=== PATIENT | male | born 1960 | race Caucasian/White ===

== ENCOUNTER 2022-05-20 12:59 | Outpatient (CLI) | payer BC, SELFPAY | END 2022-05-20 13:00 | disposition home or self-care (01) | PROVIDERS: PCP Internal Medicine Nephrology; Visit Provider Nurse Practitioner Family | DX: E11.621 Type 2 diabetes mellitus with foot ulcer (principal); L97.512 Non-pressure chronic ulcer of other part of right foot with fat layer exposed; L97.522 Non-pressure chronic ulcer of other part of left foot with fat layer exposed; Z79.84 Long term (current) use of oral hypoglycemic drugs; Z79.4 Long term (current) use of insulin; R26.9 Unspecified abnormalities of gait and mobility; E66.01 Morbid (severe) obesity due to excess calories; Z68.42 Body mass index [BMI] 45.0-49.9, adult | CPT/HCPCS: 11042; 99203 ==

== ENCOUNTER 2022-05-20 14:54 | Outpatient (CLI) | payer BC, SELFPAY ==
--- NOTE | 2022-05-20 15:30 | XR_ITS ---
Final Report Patient: KAROL MADERA Facility:?[facility] Patient ID:?[id number] Site Patient ID:?[id number]. Site :?[id number] Study:?XRay Extremity Right Foot 2 View-05/20/2022 3:39:29 PM Ordering Physician:?Jeff Whitten Final Report: Indication: Diabetic foot ulcer, great toe. Technique: Three views. Comparison: None. Findings/Impression: No radiographic evidence of osteomyelitis. No fracture or malalignment. Scattered osteoarthritic changes in the midfoot. Subcutaneous soft tissue swelling in the foot. No subcutaneous gas. Retrocalcaneal enthesophyte. Dorsal talonavicular ossicles. Dictated by James Newman MD @ 05/20/2022 6:18:14 PM (Electronic Signature)
--- NOTE | 2022-05-20 15:45 | XR_ITS ---
Final Report Patient: KAROL MADERA Facility:?[facility] Patient ID:?[id number] Site Patient ID:?[id number]. Site :?1960 Study:?XRay Extremity Left Feet 2 View-05/20/2022 3:38:35 PM Ordering Physician:?Jeff Whitten Final Report: Indication: Diabetic foot ulcer, great toe. Technique: Two views. Comparison: None. Findings/Impression: No fracture or malalignment. No radiographic evidence of osteomyelitis. Plantar 1st toe ulceration. No subcutaneous gas. Vascular calcifications. Mild degenerative changes in the midfoot. Dictated by James Newman MD @ 05/20/2022 6:19:38 PM (Electronic Signature)
== END 2022-05-20 14:55 | disposition home or self-care (01) ==
PROVIDERS: PCP Family Medicine; Visit Provider Nurse Practitioner Family
DX: E11.621 Type 2 diabetes mellitus with foot ulcer (principal); L97.529 Non-pressure chronic ulcer of other part of left foot with unspecified severity; L97.519 Non-pressure chronic ulcer of other part of right foot with unspecified severity
CPT/HCPCS: 73620

== ENCOUNTER 2022-05-27 13:24 | Outpatient (CLI) | payer BC, SELFPAY | END 2022-05-27 13:25 | disposition home or self-care (01) | LOC: WOUND 13:24 | PROVIDERS: PCP Family Medicine; Visit Provider Nurse Practitioner Family | DX: L97.512 Non-pressure chronic ulcer of other part of right foot with fat layer exposed (principal); L97.522 Non-pressure chronic ulcer of other part of left foot with fat layer exposed; R26.9 Unspecified abnormalities of gait and mobility; E11.621 Type 2 diabetes mellitus with foot ulcer | CPT/HCPCS: 11042 ==

== ENCOUNTER 2022-06-03 13:22 | Outpatient (CLI) | payer BC, SELFPAY | END 2022-06-03 13:23 | disposition home or self-care (01) | LOC: WOUND 13:22 | PROVIDERS: PCP Family Medicine; Visit Provider Nurse Practitioner Family | DX: E11.621 Type 2 diabetes mellitus with foot ulcer (principal); L97.512 Non-pressure chronic ulcer of other part of right foot with fat layer exposed; L97.522 Non-pressure chronic ulcer of other part of left foot with fat layer exposed; R26.9 Unspecified abnormalities of gait and mobility | CPT/HCPCS: 11042 ==

== ENCOUNTER 2022-06-10 13:16 | Outpatient (CLI) | payer BC, SELFPAY | END 2022-06-10 13:17 | disposition home or self-care (01) | LOC: WOUND 13:16 | PROVIDERS: PCP Family Medicine; Visit Provider Nurse Practitioner Family | DX: L97.512 Non-pressure chronic ulcer of other part of right foot with fat layer exposed (principal); L97.522 Non-pressure chronic ulcer of other part of left foot with fat layer exposed; R26.9 Unspecified abnormalities of gait and mobility | CPT/HCPCS: 11042 ==

== ENCOUNTER 2022-06-17 14:53 | Outpatient (CLI) | payer BC, SELFPAY | END 2022-06-17 14:54 | disposition home or self-care (01) | LOC: WOUND 14:53 | PROVIDERS: PCP Family Medicine; Visit Provider Nurse Practitioner Family | DX: E11.621 Type 2 diabetes mellitus with foot ulcer (principal); L97.512 Non-pressure chronic ulcer of other part of right foot with fat layer exposed; L97.522 Non-pressure chronic ulcer of other part of left foot with fat layer exposed; R26.9 Unspecified abnormalities of gait and mobility | CPT/HCPCS: 11042 ==

== ENCOUNTER 2022-06-24 14:22 | Outpatient (CLI) | payer BC, SELFPAY | END 2022-06-24 14:23 | disposition home or self-care (01) | LOC: WOUND 14:22 | PROVIDERS: PCP Family Medicine; Visit Provider Nurse Practitioner Family | DX: E11.621 Type 2 diabetes mellitus with foot ulcer (principal); L97.512 Non-pressure chronic ulcer of other part of right foot with fat layer exposed; L97.522 Non-pressure chronic ulcer of other part of left foot with fat layer exposed; S81.802A Unspecified open wound, left lower leg, initial encounter; W22.8XXA Striking against or struck by other objects, initial encounter | CPT/HCPCS: 11042; 97602 ==

== ENCOUNTER 2022-06-30 13:54 | Outpatient (CLI) | payer BC, SELFPAY ==
[2022-06-30 15:17] LABS: Chloride* 105 mmol/L (96-114); Sodium* 140 mmol/L (135-149)
[2022-06-30 15:18] LABS: Albumin* 3.6 g/dL (3.3-5.0); Potassium* 5.6 mmol/L (3.6-5.1)
[2022-06-30 15:20] LABS: Creatinine* 1.7 mg/dL (0.5-1.5); Estimated Glomerular Filt Rate 45 ml/min
[2022-06-30 15:21] LABS: Blood Urea Nitrogen* 50 mg/dL (7-30); Calcium* 8.4 mg/dL (8.4-10.6); Carbon Dioxide* 28 mmol/L (20-32); Glucose* 204 mg/dL (60-115); Phosphorus* 4.4 mg/dL (2.5-4.5); Uric Acid* 6.9 mg/dL (2.2-8.4)
[2022-06-30 15:22] LABS: Creatinine Urine 96.5 mg/dL
[2022-06-30 15:25] LABS: Iron* 43 ug/dL (49-181)
[2022-06-30 15:26] LABS: Microalbumin Creatinine Ratio 50 mg/g (0-30); Microalbumin Urine 5 mg/dL
[2022-06-30 15:56] LABS: Ferritin* 34.4 ng/mL (17.9-464.0)
== END 2022-06-30 13:55 | disposition home or self-care (01) ==
PROVIDERS: PCP Family Medicine; Visit Provider Internal Medicine Nephrology
DX: I10 Essential (primary) hypertension (principal); N18.30 Chronic kidney disease, stage 3 unspecified; E11.621 Type 2 diabetes mellitus with foot ulcer; L97.529 Non-pressure chronic ulcer of other part of left foot with unspecified severity; L97.519 Non-pressure chronic ulcer of other part of right foot with unspecified severity
CPT/HCPCS: 80069; 82043; 82570; 82728; 83540; 84550

== ENCOUNTER 2022-07-01 13:39 | Outpatient (CLI) | payer BC, SELFPAY | END 2022-07-01 13:40 | disposition home or self-care (01) | LOC: WOUND 13:39 | PROVIDERS: PCP Family Medicine; Visit Provider Nurse Practitioner Family | DX: E11.621 Type 2 diabetes mellitus with foot ulcer (principal); L97.512 Non-pressure chronic ulcer of other part of right foot with fat layer exposed; L97.522 Non-pressure chronic ulcer of other part of left foot with fat layer exposed | CPT/HCPCS: 11042 ==

== ENCOUNTER 2022-07-15 13:38 | Outpatient (CLI) | payer BC, SELFPAY | END 2022-07-15 13:39 | disposition home or self-care (01) | LOC: WOUND 13:38 | PROVIDERS: PCP Family Medicine; Visit Provider Nurse Practitioner Family | DX: E11.621 Type 2 diabetes mellitus with foot ulcer (principal); L97.512 Non-pressure chronic ulcer of other part of right foot with fat layer exposed; L97.522 Non-pressure chronic ulcer of other part of left foot with fat layer exposed | CPT/HCPCS: 11042; 97597 ==

== ENCOUNTER 2022-07-29 12:47 | Outpatient (CLI) | payer BC, SELFPAY | END 2022-07-29 12:48 | disposition home or self-care (01) | LOC: WOUND 12:47 | PROVIDERS: PCP Family Medicine; Visit Provider Nurse Practitioner Family | DX: E11.621 Type 2 diabetes mellitus with foot ulcer (principal); L97.512 Non-pressure chronic ulcer of other part of right foot with fat layer exposed; L97.522 Non-pressure chronic ulcer of other part of left foot with fat layer exposed | CPT/HCPCS: 11042 ==

== ENCOUNTER 2022-08-12 12:36 | Outpatient (CLI) | payer BC, SELFPAY | END 2022-08-12 12:37 | disposition home or self-care (01) | LOC: WOUND 12:36 | PROVIDERS: PCP Family Medicine; Visit Provider Nurse Practitioner Family | DX: E11.621 Type 2 diabetes mellitus with foot ulcer (principal); L97.512 Non-pressure chronic ulcer of other part of right foot with fat layer exposed; L97.522 Non-pressure chronic ulcer of other part of left foot with fat layer exposed | CPT/HCPCS: 11042; 97597 ==

== ENCOUNTER 2022-08-26 12:46 | Outpatient (CLI) | payer BC, SELFPAY ==
--- NOTE | 2022-08-26 14:00 | CRLHL7_ITS ---
For Patients: As a result of the Cures Act, medical imaging exams and procedure reports are released immediately into your electronic medical record. You may view this report before your referring provider. If you have questions, please contact your health care provider. Indication: Ulcer Technique: Three views of the toe Comparison: No comparison Findings: Normal alignment. No acute fractures are seen. Small lucent lesion along the plantar aspect of the 1st toe distal phalanx slight sclerotic margin indeterminate for erosion. If there is for osteomyelitis consider MRI. Dictated by Jacquelyn Ye MD @ 08/27/2022 10:47:01 AM (Electronically Signed)
== END 2022-08-26 12:47 | disposition home or self-care (01) ==
PROVIDERS: PCP Family Medicine; Visit Provider Nurse Practitioner Family
DX: E11.621 Type 2 diabetes mellitus with foot ulcer (principal); L97.522 Non-pressure chronic ulcer of other part of left foot with fat layer exposed; L97.512 Non-pressure chronic ulcer of other part of right foot with fat layer exposed
CPT/HCPCS: 11042; 73660

== ENCOUNTER 2022-09-02 12:40 | Outpatient (CLI) | payer BC, SELFPAY | END 2022-09-02 12:41 | disposition home or self-care (01) | LOC: WOUND 12:40 | PROVIDERS: PCP Family Medicine; Visit Provider Nurse Practitioner Family | DX: E11.621 Type 2 diabetes mellitus with foot ulcer (principal); L97.522 Non-pressure chronic ulcer of other part of left foot with fat layer exposed; L97.512 Non-pressure chronic ulcer of other part of right foot with fat layer exposed; Z79.4 Long term (current) use of insulin | CPT/HCPCS: 11042; 97597 ==

== ENCOUNTER 2022-09-15 09:40 | Outpatient (CLI) | payer BC, SELFPAY ==
--- NOTE | 2022-09-15 10:15 | CRLHL7_ITS ---
For Patients: As a result of the Century Cures Act, medical imaging exams and procedure reports are released immediately into your electronic medical record. You may view this report before your referring provider. If you have questions, please contact your health care provider. EXAM: MRI of the left foot without contrast. CLINICAL INDICATION: Concern for osteomyelitis. COMPARISON PLAIN FILMS: Radiographs 08/26/2022. COMPARISON CROSS-SECTIONAL IMAGING STUDIES: None. TECHNICAL: Axial, sagittal and coronal T1, PD and STIR images. 1.5 Griselda MR scanner. FINDINGS: OSSEOUS STRUCTURES: No fracture, bone marrow contusion, stress change or marrow replacement process. Preserved T1 hyperintense bone marrow signal. No erosions. JOINT SPACES: Joint spaces within the visualized forefoot, at the midfoot-forefoot junction and within the midfoot are maintained. Moderate 1st MTP joint osteoarthritis. LIGAMENTS: The Lisfranc ligament is intact. TMT joint alignment is maintained. The collateral ligaments of the MTP joints are intact. TENDONS AND MUSCLES: The flexor and extensor tendons are intact. Flexor hallucis longus tendinosis with more focal 2.2 centimeter length of more prominent thickening and increased signal proximal to the sesamoid bones. The distal peroneus longus and brevis tendons are intact. Minimal atrophy of the intrinsic musculature of the foot with increased STIR signal. SOFT TISSUES: Soft tissue induration along the medial plantar aspect of the 1st toe. Nonspecific subcutaneous edema throughout the forefoot. No evidence of drainable fluid collection within limits of noncontrast exam present OTHER FINDINGS: Mild fluid in the web space between the head of the 1st and 2nd metatarsals. IMPRESSION: 1. No evidence of osteomyelitis. 2. Mild soft tissue thickening and induration in the medial plantar 1st toe consistent with given history of ulcer. 3. Flexor hallucis longus tendinosis with more focal segment of severe tendinosis or partial-thickness tear proximal to the sesamoid bones. 4. Moderate 1st MTP joint osteoarthritis. 5. Mild intermetatarsal bursitis between the 1st and 2nd metatarsal heads. Dictated by James Newman MD @ 09/15/2022 4:08:48 PM (Electronically Signed)
== END 2022-09-15 09:41 | disposition home or self-care (01) ==
LOC: MRI 09:40
PROVIDERS: PCP Family Medicine; Visit Provider Nurse Practitioner Family
DX: L97.522 Non-pressure chronic ulcer of other part of left foot with fat layer exposed (principal); M19.072 Primary osteoarthritis, left ankle and foot; M77.52 Other enthesopathy of left foot and ankle
CPT/HCPCS: 73718

== ENCOUNTER 2022-09-16 12:38 | Outpatient (CLI) | payer BC, SELFPAY | END 2022-09-16 12:39 | disposition home or self-care (01) | LOC: WOUND 12:39 | PROVIDERS: PCP Family Medicine; Visit Provider Nurse Practitioner Family | DX: E11.621 Type 2 diabetes mellitus with foot ulcer (principal); L97.512 Non-pressure chronic ulcer of other part of right foot with fat layer exposed; L97.522 Non-pressure chronic ulcer of other part of left foot with fat layer exposed; Z79.4 Long term (current) use of insulin; Z79.84 Long term (current) use of oral hypoglycemic drugs | CPT/HCPCS: 11042 ==

== ENCOUNTER 2022-10-07 12:43 | Outpatient (CLI) | payer BC, SELFPAY | END 2022-10-07 12:44 | disposition home or self-care (01) | LOC: WOUND 12:43 | PROVIDERS: PCP Family Medicine; Visit Provider Nurse Practitioner Family | DX: E11.621 Type 2 diabetes mellitus with foot ulcer (principal); L97.512 Non-pressure chronic ulcer of other part of right foot with fat layer exposed; L97.522 Non-pressure chronic ulcer of other part of left foot with fat layer exposed | CPT/HCPCS: 11042; 11043 ==

== ENCOUNTER 2022-10-14 13:37 | Outpatient (CLI) | payer BC, SELFPAY | END 2022-10-14 13:38 | disposition home or self-care (01) | LOC: WOUND 13:37 | PROVIDERS: PCP Family Medicine; Visit Provider Nurse Practitioner Family | DX: E11.621 Type 2 diabetes mellitus with foot ulcer (principal); L97.512 Non-pressure chronic ulcer of other part of right foot with fat layer exposed; L97.522 Non-pressure chronic ulcer of other part of left foot with fat layer exposed | CPT/HCPCS: 11042 ==

== ENCOUNTER 2022-10-28 12:56 | Outpatient (CLI) | payer BC, SELFPAY | END 2022-10-28 12:57 | disposition home or self-care (01) | LOC: WOUND 12:56 | PROVIDERS: PCP Family Medicine; Visit Provider Nurse Practitioner Family | DX: E11.621 Type 2 diabetes mellitus with foot ulcer (principal); L97.512 Non-pressure chronic ulcer of other part of right foot with fat layer exposed; L97.522 Non-pressure chronic ulcer of other part of left foot with fat layer exposed | CPT/HCPCS: 11042 ==

== ENCOUNTER 2022-11-18 12:53 | Outpatient (CLI) | payer BC, SELFPAY | END 2022-11-18 12:54 | disposition home or self-care (01) | LOC: WOUND 12:53 | PROVIDERS: PCP Family Medicine; Visit Provider Nurse Practitioner Family | DX: E11.621 Type 2 diabetes mellitus with foot ulcer (principal); L97.512 Non-pressure chronic ulcer of other part of right foot with fat layer exposed; L97.522 Non-pressure chronic ulcer of other part of left foot with fat layer exposed | CPT/HCPCS: 11042 ==

== ENCOUNTER 2022-12-01 16:04 | Outpatient (CLI) | payer BC, SELFPAY ==
[2022-12-01 12:14] LABS: Iron* 53 ug/dL (49-181)
[2022-12-01 12:30] LABS: Alanine Aminotransferase* 24 U/L (4-50); Albumin* 3.9 g/dL (3.3-5.0); Aspartate Amino Transferase* 26 U/L (12-35); Blood Urea Nitrogen* 41 mg/dL (7-30); Calcium* 9.1 mg/dL (8.4-10.6); Carbon Dioxide* 29 mmol/L (20-32); Chloride* 109 mmol/L (96-114); Cholesterol* 150 mg/dL (90-199); Creatinine* 1.5 mg/dL (0.5-1.5); Estimated Glomerular Filt Rate 53 ml/min; Glucose* 95 mg/dL (60-115); HDL Cholesterol* 38 mg/dL (>=40); LDL Cholesterol Calculated 97 mg/dL (<100); Percent Iron Saturation 13 % (20-50); Phosphorus* 4.3 mg/dL (2.5-4.5); Potassium* 5.4 mmol/L (3.6-5.1); Sodium* 141 mmol/L (135-149); Total Iron Binding Capacity 399 ug/dL (261-462); Triglycerides* 75 mg/dL (40-149); Uric Acid* 6.4 mg/dL (2.2-8.4)
[2022-12-01 12:32] LABS: C Reactive Protein* < 0.5 mg/dL (0.5-1.0)
[2022-12-01 12:48] LABS: Creatinine Urine 75.8 mg/dL
[2022-12-01 12:52] LABS: Microalbumin Creatinine Ratio 170 mg/g (0-30); Microalbumin Urine 13 mg/dL
[2022-12-01 13:18] LABS: Ferritin* 18.7 ng/mL (17.9-464.0)
== END 2022-12-01 16:05 | disposition home or self-care (01) ==
PROVIDERS: PCP Family Medicine; Visit Provider Internal Medicine Nephrology
DX: E11.9 Type 2 diabetes mellitus without complications (principal); I10 Essential (primary) hypertension; N18.32 Chronic kidney disease, stage 3b
CPT/HCPCS: 80061; 80069; 82043; 82570; 82728; 83540; 83550; 84450; 84460; 84550; 86140

== ENCOUNTER 2022-12-02 12:49 | Outpatient (CLI) | payer BC, SELFPAY | END 2022-12-02 12:50 | disposition home or self-care (01) | LOC: WOUND 12:49 | PROVIDERS: PCP Family Medicine; Visit Provider Nurse Practitioner Family | DX: E11.621 Type 2 diabetes mellitus with foot ulcer (principal); L97.512 Non-pressure chronic ulcer of other part of right foot with fat layer exposed; L97.522 Non-pressure chronic ulcer of other part of left foot with fat layer exposed | CPT/HCPCS: 97597 ==

== ENCOUNTER 2022-12-16 12:46 | Outpatient (CLI) | payer BC, SELFPAY | END 2022-12-16 12:47 | disposition home or self-care (01) | LOC: WOUND 12:46 | PROVIDERS: PCP Family Medicine; Visit Provider Nurse Practitioner Family | DX: E11.621 Type 2 diabetes mellitus with foot ulcer (principal); L97.512 Non-pressure chronic ulcer of other part of right foot with fat layer exposed; L97.522 Non-pressure chronic ulcer of other part of left foot with fat layer exposed; Z79.84 Long term (current) use of oral hypoglycemic drugs | CPT/HCPCS: 11042; 97597 ==

== ENCOUNTER 2022-12-30 12:40 | Outpatient (CLI) | payer BC, SELFPAY | END 2022-12-30 12:41 | disposition home or self-care (01) | LOC: WOUND 12:40 | PROVIDERS: PCP Family Medicine; Visit Provider Nurse Practitioner Family | DX: E11.621 Type 2 diabetes mellitus with foot ulcer (principal); L97.512 Non-pressure chronic ulcer of other part of right foot with fat layer exposed; L97.522 Non-pressure chronic ulcer of other part of left foot with fat layer exposed; I89.0 Lymphedema, not elsewhere classified; B35.3 Tinea pedis; Z79.4 Long term (current) use of insulin; Z79.84 Long term (current) use of oral hypoglycemic drugs | CPT/HCPCS: 97597 ==

== ENCOUNTER 2023-01-13 12:38 | Outpatient (CLI) | payer BC, SELFPAY | END 2023-01-13 12:39 | disposition home or self-care (01) | LOC: WOUND 12:38 | PROVIDERS: PCP Family Medicine; Visit Provider Nurse Practitioner Family | DX: E11.621 Type 2 diabetes mellitus with foot ulcer (principal); L97.512 Non-pressure chronic ulcer of other part of right foot with fat layer exposed; L97.522 Non-pressure chronic ulcer of other part of left foot with fat layer exposed; I89.0 Lymphedema, not elsewhere classified; Z79.4 Long term (current) use of insulin; Z79.84 Long term (current) use of oral hypoglycemic drugs | CPT/HCPCS: 11042 ==

== ENCOUNTER 2023-01-27 12:54 | Outpatient (CLI) | payer BC, SELFPAY | END 2023-01-27 12:55 | disposition home or self-care (01) | LOC: WOUND 12:54 | PROVIDERS: PCP Family Medicine; Visit Provider Nurse Practitioner Family | DX: E11.622 Type 2 diabetes mellitus with other skin ulcer (principal); L97.512 Non-pressure chronic ulcer of other part of right foot with fat layer exposed; L97.522 Non-pressure chronic ulcer of other part of left foot with fat layer exposed; I89.0 Lymphedema, not elsewhere classified | CPT/HCPCS: 11042 ==

== ENCOUNTER 2023-02-10 12:37 | Outpatient (CLI) | payer BC, SELFPAY | END 2023-02-10 12:38 | disposition home or self-care (01) | LOC: WOUND 12:37 | PROVIDERS: PCP Family Medicine; Visit Provider Nurse Practitioner Family | DX: E11.621 Type 2 diabetes mellitus with foot ulcer (principal); L97.512 Non-pressure chronic ulcer of other part of right foot with fat layer exposed; L97.522 Non-pressure chronic ulcer of other part of left foot with fat layer exposed | CPT/HCPCS: 11042 ==

== ENCOUNTER 2023-02-24 12:37 | Outpatient (CLI) | payer BC, SELFPAY | END 2023-02-24 12:38 | disposition home or self-care (01) | LOC: WOUND 12:37 | PROVIDERS: PCP Family Medicine; Visit Provider Nurse Practitioner Family | DX: E11.621 Type 2 diabetes mellitus with foot ulcer (principal); L97.512 Non-pressure chronic ulcer of other part of right foot with fat layer exposed; L97.522 Non-pressure chronic ulcer of other part of left foot with fat layer exposed | CPT/HCPCS: 11042 ==

== ENCOUNTER 2023-03-10 12:39 | Outpatient (CLI) | payer BC, SELFPAY | END 2023-03-10 12:40 | disposition home or self-care (01) | LOC: WOUND 12:39 | PROVIDERS: PCP Family Medicine; Visit Provider Nurse Practitioner Family | DX: E11.621 Type 2 diabetes mellitus with foot ulcer (principal); L97.512 Non-pressure chronic ulcer of other part of right foot with fat layer exposed; L97.522 Non-pressure chronic ulcer of other part of left foot with fat layer exposed; I89.0 Lymphedema, not elsewhere classified | CPT/HCPCS: 11042 ==

== ENCOUNTER 2023-03-24 12:45 | Outpatient (CLI) | payer BC, SELFPAY | END 2023-03-24 12:46 | disposition home or self-care (01) | LOC: WOUND 12:45 | PROVIDERS: PCP Family Medicine; Visit Provider Nurse Practitioner Family | DX: E11.621 Type 2 diabetes mellitus with foot ulcer (principal); L97.512 Non-pressure chronic ulcer of other part of right foot with fat layer exposed; L97.522 Non-pressure chronic ulcer of other part of left foot with fat layer exposed; I89.0 Lymphedema, not elsewhere classified; L60.0 Ingrowing nail; L60.3 Nail dystrophy | CPT/HCPCS: 11042; 11720; 97597; 99211 ==

== ENCOUNTER 2023-05-05 12:36 | Outpatient (CLI) | payer BC, SELFPAY | END 2023-05-05 12:37 | disposition home or self-care (01) | LOC: WOUND 12:36 | PROVIDERS: PCP Family Medicine; Visit Provider Nurse Practitioner Family | DX: E11.621 Type 2 diabetes mellitus with foot ulcer (principal); L97.512 Non-pressure chronic ulcer of other part of right foot with fat layer exposed; L97.522 Non-pressure chronic ulcer of other part of left foot with fat layer exposed; Z79.4 Long term (current) use of insulin; Z79.84 Long term (current) use of oral hypoglycemic drugs | CPT/HCPCS: 11042; 97597 ==

== ENCOUNTER 2023-05-19 12:37 | Outpatient (CLI) | payer BC, SELFPAY | END 2023-05-19 12:38 | disposition home or self-care (01) | LOC: WOUND 12:37 | PROVIDERS: PCP Family Medicine; Visit Provider Family Medicine | DX: E11.621 Type 2 diabetes mellitus with foot ulcer (principal); L97.512 Non-pressure chronic ulcer of other part of right foot with fat layer exposed; L97.522 Non-pressure chronic ulcer of other part of left foot with fat layer exposed; I89.0 Lymphedema, not elsewhere classified; Z79.4 Long term (current) use of insulin; Z79.84 Long term (current) use of oral hypoglycemic drugs | CPT/HCPCS: 11042 ==

== ENCOUNTER 2023-05-29 15:00 | Outpatient (CLI) | payer BC, SELFPAY | END 2023-05-29 15:01 | disposition home or self-care (01) | LOC: NFLDREF 05-31 12:14 | PROVIDERS: PCP Family Medicine; Referring Provider Family Medicine; Visit Provider Internal Medicine Nephrology | DX: E11.9 Type 2 diabetes mellitus without complications (principal); I10 Essential (primary) hypertension; N18.32 Chronic kidney disease, stage 3b; L97.522 Non-pressure chronic ulcer of other part of left foot with fat layer exposed | CPT/HCPCS: 80061; 80069; 82043; 82570; 82728; 83540; 83550; 84450; 84460; 84550 ==

== ENCOUNTER 2023-06-02 12:46 | Outpatient (CLI) | payer BC, SELFPAY | END 2023-06-02 12:47 | disposition home or self-care (01) | LOC: WOUND 12:46 | PROVIDERS: PCP Family Medicine; Visit Provider Nurse Practitioner Family | DX: E11.621 Type 2 diabetes mellitus with foot ulcer (principal); L97.512 Non-pressure chronic ulcer of other part of right foot with fat layer exposed; L97.522 Non-pressure chronic ulcer of other part of left foot with fat layer exposed; I87.312 Chronic venous hypertension (idiopathic) with ulcer of left lower extremity; L97.822 Non-pressure chronic ulcer of other part of left lower leg with fat layer exposed; S91.211A Laceration without foreign body of right great toe with damage to nail, initial encounter; Z79.4 Long term (current) use of insulin; Z79.84 Long term (current) use of oral hypoglycemic drugs | CPT/HCPCS: 11042; 11750; 97602 ==

== ENCOUNTER 2023-06-15 08:41 | Outpatient (CLI) | payer BC, SELFPAY | END 2023-06-15 08:42 | disposition home or self-care (01) | LOC: WOUND 08:41 | PROVIDERS: PCP Family Medicine; Visit Provider Nurse Practitioner Family | DX: E11.621 Type 2 diabetes mellitus with foot ulcer (principal); L97.512 Non-pressure chronic ulcer of other part of right foot with fat layer exposed; L97.522 Non-pressure chronic ulcer of other part of left foot with fat layer exposed; I89.0 Lymphedema, not elsewhere classified; Z79.4 Long term (current) use of insulin; Z79.84 Long term (current) use of oral hypoglycemic drugs | CPT/HCPCS: 11042; 97597 ==

== ENCOUNTER 2023-06-30 12:37 | Outpatient (CLI) | payer BC, SELFPAY | END 2023-06-30 12:38 | disposition home or self-care (01) | LOC: WOUND 12:37 | PROVIDERS: PCP Family Medicine; Visit Provider Nurse Practitioner Family | DX: E11.621 Type 2 diabetes mellitus with foot ulcer (principal); L97.512 Non-pressure chronic ulcer of other part of right foot with fat layer exposed; L97.522 Non-pressure chronic ulcer of other part of left foot with fat layer exposed; Z79.4 Long term (current) use of insulin | CPT/HCPCS: 11042; 97597 ==

== ENCOUNTER 2023-07-14 12:39 | Outpatient (CLI) | payer BC, SELFPAY | END 2023-07-14 12:40 | disposition home or self-care (01) | LOC: WOUND 12:39 | PROVIDERS: PCP Family Medicine; Visit Provider Nurse Practitioner Family | DX: E11.621 Type 2 diabetes mellitus with foot ulcer (principal); L97.512 Non-pressure chronic ulcer of other part of right foot with fat layer exposed; L97.522 Non-pressure chronic ulcer of other part of left foot with fat layer exposed; Z79.84 Long term (current) use of oral hypoglycemic drugs; Z79.4 Long term (current) use of insulin | CPT/HCPCS: 11042 ==

== ENCOUNTER 2023-07-28 12:46 | Outpatient (CLI) | payer BC, SELFPAY | END 2023-07-28 12:47 | disposition home or self-care (01) | LOC: WOUND 12:46 | PROVIDERS: PCP Family Medicine; Visit Provider Nurse Practitioner Family | DX: E11.621 Type 2 diabetes mellitus with foot ulcer (principal); L97.512 Non-pressure chronic ulcer of other part of right foot with fat layer exposed; L97.522 Non-pressure chronic ulcer of other part of left foot with fat layer exposed; Z79.4 Long term (current) use of insulin; Z79.84 Long term (current) use of oral hypoglycemic drugs | CPT/HCPCS: 97597 ==

== ENCOUNTER 2023-08-11 12:39 | Outpatient (CLI) | payer BC, SELFPAY | END 2023-08-11 12:40 | disposition home or self-care (01) | LOC: WOUND 12:39 | PROVIDERS: PCP Family Medicine; Visit Provider Nurse Practitioner Family | DX: E11.621 Type 2 diabetes mellitus with foot ulcer (principal); L97.512 Non-pressure chronic ulcer of other part of right foot with fat layer exposed; L97.522 Non-pressure chronic ulcer of other part of left foot with fat layer exposed; Z79.4 Long term (current) use of insulin; Z79.84 Long term (current) use of oral hypoglycemic drugs | CPT/HCPCS: 97597 ==

== ENCOUNTER 2023-08-25 12:39 | Outpatient (CLI) | payer BC, SELFPAY | END 2023-08-25 12:40 | disposition home or self-care (01) | LOC: WOUND 12:39 | PROVIDERS: PCP Family Medicine; Visit Provider Nurse Practitioner Family | DX: E11.621 Type 2 diabetes mellitus with foot ulcer (principal); L97.512 Non-pressure chronic ulcer of other part of right foot with fat layer exposed; L97.522 Non-pressure chronic ulcer of other part of left foot with fat layer exposed; Z79.4 Long term (current) use of insulin; Z79.84 Long term (current) use of oral hypoglycemic drugs | CPT/HCPCS: 11042; 97597 ==

== ENCOUNTER 2023-08-27 13:08 | Outpatient (CLI) | payer BC, SELFPAY | END 2023-08-27 13:09 | disposition home or self-care (01) | LOC: WOUND 13:08 | PROVIDERS: PCP Family Medicine; Visit Provider Nurse Practitioner Family | DX: E11.621 Type 2 diabetes mellitus with foot ulcer (principal); L97.522 Non-pressure chronic ulcer of other part of left foot with fat layer exposed; I89.0 Lymphedema, not elsewhere classified; E66.01 Morbid (severe) obesity due to excess calories; Z68.42 Body mass index [BMI] 45.0-49.9, adult; Z79.4 Long term (current) use of insulin; Z79.84 Long term (current) use of oral hypoglycemic drugs; I12.9 Hypertensive chronic kidney disease with stage 1 through stage 4 chronic kidney disease, or unspecified chronic kidney disease; E11.22 Type 2 diabetes mellitus with diabetic chronic kidney disease; N18.32 Chronic kidney disease, stage 3b; N25.81 Secondary hyperparathyroidism of renal origin; Z13.220 Encounter for screening for lipoid disorders | CPT/HCPCS: 29445; 80061; 80069; 82043; 82310; 82570; 82728; 83540; 83550; 83970; 84450; 84460; 84550; 86140 ==

== ENCOUNTER 2023-09-01 10:14 | Outpatient (CLI) | payer BC, SELFPAY | END 2023-09-01 10:15 | disposition home or self-care (01) | LOC: WOUND 10:14 | PROVIDERS: PCP Family Medicine; Visit Provider Nurse Practitioner Family | DX: E11.621 Type 2 diabetes mellitus with foot ulcer (principal); L97.512 Non-pressure chronic ulcer of other part of right foot with fat layer exposed; L97.522 Non-pressure chronic ulcer of other part of left foot with fat layer exposed; I89.0 Lymphedema, not elsewhere classified; Z79.4 Long term (current) use of insulin; Z79.84 Long term (current) use of oral hypoglycemic drugs | CPT/HCPCS: 29445; 97597 ==

== ENCOUNTER 2023-09-08 12:38 | Outpatient (CLI) | payer BC, SELFPAY | END 2023-09-08 12:39 | disposition home or self-care (01) | LOC: WOUND 12:38 | PROVIDERS: PCP Family Medicine; Visit Provider Nurse Practitioner Family | DX: E11.621 Type 2 diabetes mellitus with foot ulcer (principal); L97.522 Non-pressure chronic ulcer of other part of left foot with fat layer exposed; L97.512 Non-pressure chronic ulcer of other part of right foot with fat layer exposed; Z79.4 Long term (current) use of insulin; Z79.84 Long term (current) use of oral hypoglycemic drugs | CPT/HCPCS: 29445; 97597 ==

== ENCOUNTER 2023-09-15 14:42 | Outpatient (CLI) | payer BC, SELFPAY | END 2023-09-15 14:43 | disposition home or self-care (01) | LOC: WOUND 14:42 | PROVIDERS: PCP Family Medicine; Visit Provider Nurse Practitioner Family | DX: E11.621 Type 2 diabetes mellitus with foot ulcer (principal); L97.512 Non-pressure chronic ulcer of other part of right foot with fat layer exposed; Z79.4 Long term (current) use of insulin; Z79.84 Long term (current) use of oral hypoglycemic drugs | CPT/HCPCS: 29445; 97597 ==

== ENCOUNTER 2023-09-22 12:55 | Outpatient (CLI) | payer BC, SELFPAY | END 2023-09-22 12:56 | disposition home or self-care (01) | LOC: WOUND 12:55 | PROVIDERS: PCP Family Medicine; Visit Provider Nurse Practitioner Family | DX: E11.621 Type 2 diabetes mellitus with foot ulcer (principal); L97.522 Non-pressure chronic ulcer of other part of left foot with fat layer exposed; I89.0 Lymphedema, not elsewhere classified; S91.302A Unspecified open wound, left foot, initial encounter; W50.0XXA Accidental hit or strike by another person, initial encounter; N18.32 Chronic kidney disease, stage 3b; Z79.4 Long term (current) use of insulin; Z79.84 Long term (current) use of oral hypoglycemic drugs | CPT/HCPCS: 80069; 82043; 82570; 84550; 97602; 99213 ==

== ENCOUNTER 2023-10-06 12:32 | Outpatient (CLI) | payer BC, SELFPAY | END 2023-10-06 12:33 | disposition home or self-care (01) | LOC: WOUND 12:32 | PROVIDERS: PCP Family Medicine; Visit Provider Family Medicine | DX: E11.621 Type 2 diabetes mellitus with foot ulcer (principal); L97.512 Non-pressure chronic ulcer of other part of right foot with fat layer exposed; L97.522 Non-pressure chronic ulcer of other part of left foot with fat layer exposed; Z79.4 Long term (current) use of insulin; Z79.84 Long term (current) use of oral hypoglycemic drugs | CPT/HCPCS: 97597 ==

== ENCOUNTER 2023-10-20 12:39 | Outpatient (CLI) | payer BC, SELFPAY | END 2023-10-20 12:40 | disposition home or self-care (01) | LOC: WOUND 12:39 | PROVIDERS: PCP Family Medicine; Visit Provider Nurse Practitioner Family | DX: E11.621 Type 2 diabetes mellitus with foot ulcer (principal); L97.512 Non-pressure chronic ulcer of other part of right foot with fat layer exposed; L97.522 Non-pressure chronic ulcer of other part of left foot with fat layer exposed; I89.0 Lymphedema, not elsewhere classified; Z79.4 Long term (current) use of insulin; Z79.84 Long term (current) use of oral hypoglycemic drugs | CPT/HCPCS: 97597 ==

== ENCOUNTER 2023-11-03 12:44 | Outpatient (CLI) | payer BC, SELFPAY | END 2023-11-03 12:45 | disposition home or self-care (01) | LOC: WOUND 12:44 | PROVIDERS: PCP Family Medicine; Visit Provider Nurse Practitioner Family | DX: E11.621 Type 2 diabetes mellitus with foot ulcer (principal); L97.512 Non-pressure chronic ulcer of other part of right foot with fat layer exposed; L97.522 Non-pressure chronic ulcer of other part of left foot with fat layer exposed; I89.0 Lymphedema, not elsewhere classified; Z79.4 Long term (current) use of insulin; Z79.84 Long term (current) use of oral hypoglycemic drugs | CPT/HCPCS: 97597 ==

== ENCOUNTER 2023-11-05 14:41 | Outpatient (CLI) | payer BC, SELFPAY | END 2023-11-05 14:42 | disposition home or self-care (01) | LOC: WOUND 14:41 | PROVIDERS: PCP Family Medicine; Visit Provider Nurse Practitioner Family | DX: E11.621 Type 2 diabetes mellitus with foot ulcer (principal); L97.522 Non-pressure chronic ulcer of other part of left foot with fat layer exposed; Z79.4 Long term (current) use of insulin; Z79.84 Long term (current) use of oral hypoglycemic drugs | CPT/HCPCS: 29445 ==

== ENCOUNTER 2023-11-12 13:13 | Outpatient (CLI) | payer BC, SELFPAY | END 2023-11-12 13:14 | disposition home or self-care (01) | LOC: WOUND 13:13 | PROVIDERS: PCP Family Medicine; Visit Provider Nurse Practitioner Family | DX: E11.621 Type 2 diabetes mellitus with foot ulcer (principal); L97.512 Non-pressure chronic ulcer of other part of right foot with fat layer exposed; L97.522 Non-pressure chronic ulcer of other part of left foot with fat layer exposed; L89.893 Pressure ulcer of other site, stage 3; Z79.4 Long term (current) use of insulin; Z79.84 Long term (current) use of oral hypoglycemic drugs | CPT/HCPCS: 11042; 29445; 97597 ==

== ENCOUNTER 2023-11-19 13:15 | Outpatient (CLI) | payer BC, SELFPAY | END 2023-11-19 13:16 | disposition home or self-care (01) | LOC: WOUND 13:15 | PROVIDERS: PCP Family Medicine; Visit Provider Family Medicine | DX: E11.621 Type 2 diabetes mellitus with foot ulcer (principal); L97.522 Non-pressure chronic ulcer of other part of left foot with fat layer exposed; Z79.4 Long term (current) use of insulin; Z79.84 Long term (current) use of oral hypoglycemic drugs | CPT/HCPCS: 29445 ==

== ENCOUNTER 2023-11-26 12:34 | Outpatient (CLI) | payer OTHER, SELFPAY | END 2023-11-26 12:35 | disposition home or self-care (01) | PROVIDERS: PCP Family Medicine; Visit Provider Family Medicine | DX: E11.621 Type 2 diabetes mellitus with foot ulcer (principal); L97.512 Non-pressure chronic ulcer of other part of right foot with fat layer exposed; L97.522 Non-pressure chronic ulcer of other part of left foot with fat layer exposed; Z79.4 Long term (current) use of insulin; Z79.84 Long term (current) use of oral hypoglycemic drugs | CPT/HCPCS: 11042; 97597 ==

== ENCOUNTER 2023-12-03 10:15 | Outpatient (CLI) | payer OTHER, SELFPAY ==
--- OUTSIDE RECORDS SUMMARY | 2023-12-03 10:24 | XMS_ITS | Clinical Summary ---
Author Name Unknown Organization [facility] Address [address] [place] [address] Care Team Providers Care Family And Consumer Science Professor Name Role Phone Unavailable Primary Care Provider Unavailabl e Source Comments Patient records contain information from all sites at [facility]. For routine questions regarding patient records, call [phone] during business hours, M-F 8:00 AM - 5:00 PM Central Time. Record requests for emergency care only can be directed to [phone] at any time.[facility] Allergies Active Allergy Reactions Criticality Noted Date Comments Benazepril Cough 06/22/2017 Latex Rash 07/08/2022 Blisters from compression stockings Medications Medication Sig Dispensed Refills Start Date End Date Status iron,carbonyl-vit patterson C (VITRON-C) 65 mg iron- [address] tablet Take 1 tablet (65 mg of iron total) by mouth daily. Do not crush or chew. 60 tablet 1 03/25/2022 Active DULoxetine (CYMBALTA) [address] capsule Take 60 mg by mouth daily. 0 11/01/2022 Active insulin NPH 100 unit/mL injection Inject under the skin. 0 07/08/2022 Active losartan-hydroCHL OROthiazide (HYZAAR) 100-25 mg per tablet Take 1 tablet by mouth daily. 0 11/01/2022 Active metFORMIN XR (GLUCOPHAGE-XR) 500 mg 24 hr tablet Take 1,000 mg by mouth 2 (two) times a day. 0 11/01/2022 Active doxycycline hyclate (VIBRA-TABS) 100 mg tablet Take 100 mg by mouth every 12 (twelve) hours. 0 11/21/2022 Active atorvastatin (LIPITOR) 20 mg tablet Take 20 mg by mouth daily. 0 01/16/2023 Active aspirin 81 mg capsule Take 81 mg by mouth. 0 07/08/2022 Active albuterol 90 mcg/actuation inhaler 1 puff every 4 (four) hours as needed. 0 09/11/2022 Active albuterol 2.5 mg /3 mL nebulizer solution Inhale 3 mL (2.5 mg total) by nebulization 4 (four) times a day. 120 mL 0 02/02/2023 Active predniSONE (DELTASONE) 20 mg tablet Take 2 tablets (40 mg total) by mouth daily. 10 tablet 0 02/02/2023 Active carvediloL (COREG) 25 mg tablet TAKE 1 AND 1/2 TABLETS(37.5 MG) BY MOUTH TWICE DAILY WITH MEALS 270 tablet 3 05/10/2023 Active semaglutide (Ozempic) 0.25 mg or 0.5 mg (2 mg/3 mL) injection Inject 0.25 mg under the skin every 7 (seven) days. 4.5 mL 3 06/02/2023 06/01/2024 Active torsemide (DEMADEX) 20 mg tablet Take 0.5 tablets (10 mg total) by mouth as directed. MWF 100 tablet 3 08/31/2023 08/30/2024 Active Active Problems Problem Noted Date Diagnosed Date Anemia Of Chronic Renal Failure 06/02/2023 Hyperparathyroidism Renal Secondary 06/02/2023 Chronic Kidney Disease (CKD) , Stage 3b Glomerular Filtration Rate (GFR) 30 To 44 01/21/2022 Hypertensive Chronic Kidney Disease (CKD) Stage 3b Glomerular Filtration Rate (GFR) 30 To 44 01/21/2022 Diabetes Mellitus Type 2 01/21/2022 Body Mass Index 40.0 To 44.9 Adult 06/22/2017 Overview: Body mass index (BMI) 40.0-44.9, adult\.br\Rule activated problem due to BMI 40- 44 posted on 06/22 at 19:17 CDT. Encounters Date Type Department Care Team Description 10/28/2023 Clinical Communication Pharmacy Prior Auth RO [id number] Lizandro Martell RX APPROVAL (OZEMPIC 0.25MG) 09/29/2023 10:30 AM UNION ORGANIZER External Outreach Division of Nephrology and Hypertension in [place], [place] [address] [place] [address] Vince Chopra Jr., D.O. Chronic Kidney Disease (CKD), Stage 3b Glomerular Filtration Rate (GFR) 30 To 44 (HCC) (Primary Dx); Hypertensive Chronic Kidney Disease (CKD) Stage 3b Glomerular Filtration Rate (GFR) 30 To 44 (HCC); Diabetes Mellitus Type 2 (HCC); Anemia Of Chronic Renal Failure; Hyperparathyroidis m Renal Secondary (HCC); Body Mass Index 40.0 To 44.9 Adult (HCC) from Last 3 Months Immunizations Name Administration Dates Next Due Tdap 04/28/2014 Social History Tobacco Use Types Packs/Day Years Used Date Smoking Tobacco: Never Nutrition Answer Date Recorded Nutrition: EVOO Fat Source Unknown 01/25 Nutrition: Servings of Fruits/Vegetables per Day Not on file 01/25/2021 Dental Answer Date Recorded Dental: Regular Dentist Unknown 01/26/20 Sex and Gender Information Value Date Recorded Sex Assigned at Not on file Gender Identity Not on file Sexual Orientation Not on file Last Filed Vital Signs Vital Sign Reading Time Taken Comments Blood Pressure 124/68 09/29/2023 10:36 AM UNION ORGANIZER Pulse 88 09/29/2023 10:36 AM UNION ORGANIZER Temperature 37 ??C (98.6 ??F) 02/02/2023 3:03 PM CDT Respiratory Rate 18 04/28/2014 10:16 PM CDT Oxygen Saturation 96% 02/02/2023 3:03 PM CDT Inhaled Oxygen Concentration - - Weight 132 kg (290 lb 12.6 oz) 09/29/2023 10:36 AM UNION ORGANIZER Height 170 cm (5' 6.93) 09/29/2023 10:36 AM UNION ORGANIZER Body Mass Index 45.64 09/29/2023 10:36 AM UNION ORGANIZER Plan of Treatment Health Maintenance Due Date Last Done Comments CT Colonography 1961 Cologuard 1960 Colonoscopy 1960 Colorectal Cancer Screening 1960 Diabetic Office Visit with F oot Exam 1961 Dilated Eye Exam 1961 FIT 1960 HIV Screening 1960 Hemoglobin A1C 1961 Hepatitis C Screening 1960 Lipid (Cholesterol) Screening 1960 Potassium Level 1960 Sodium Level 1960 Urine Albumin 1960 Pneumococcal vaccine (0-64 y ears) (2 of 2 - PCV) 08/08/2015 08/08/2014 COVID-19 Vaccine ( - 2022-2 4 season) 2023 08/10/2022, 02/19/2022, 09/17/2021, Additional history exists Creatinine Level (Kidney Fun ction Test) 11/11/2023 11/11/2022, 12/24/2021 Depression Screening (Annual PHQ-2) 11/23/2023 DTaP,Tdap,and Td Vaccines (2 - Td or Tdap) 04/28/2024 04/28/2014 Office Visit for Blood Press ure Check / Re-check 09/29/2024 09/29/2023 Zoster Vaccines Completed 12/31/2020, 10/29/2020 Influenza Vaccine Completed 08/18/2023, , 08/13/2021, Additional history exists
--- OUTSIDE RECORDS SUMMARY | 2023-12-03 10:25 | XMS_ITS | Referral Summary ---
Author Name Unknown Organization [facility] Address [address] [place] [address] Care Team Providers Care Licensed Sales Producer Name Role Phone Unavailable Primary Care Provider Unavailabl e Source Comments Patient records contain information from all sites at [facility]. For routine questions regarding patient records, call [phone] during business hours, M-F 8:00 AM - 5:00 PM Central Time. Record requests for emergency care only can be directed to [phone] at any time.[facility] Encounters Date Type Department Care Team Description 10/28/2023 Clinical Communication Pharmacy Prior Auth [id number] Lizandro Martell RX APPROVAL (OZEMPIC 0.25MG) 09/29/2023 10:30 AM SEWING DEPARTMENT SUPERVISOR External Outreach Division of Nephrology and Hypertension in [place], [place] [address] [place] [address] Vince Chopra Jr., D.O. Chronic Kidney Disease (CKD), Stage 3b Glomerular Filtration Rate (GFR) 30 To 44 (HCC) (Primary Dx); Hypertensive Chronic Kidney Disease (CKD) Stage 3b Glomerular Filtration Rate (GFR) 30 To 44 (HCC); Diabetes Mellitus Type 2 (HCC); Anemia Of Chronic Renal Failure; Hyperparathyroidis m Renal Secondary ([facility]); Body Mass Index 40.0 To 44.9 Adult ([facility]) from Last 3 Months Allergies Active Allergy Reactions Criticality Noted Date [...] 44 posted on 06/22 at 19:17 CDT. Immunizations Name Administration Dates Next Due Tdap 04/28/2014 Social History Tobacco Use Types Packs/Day Years Used Date Smoking Tobacco: Never Nutrition Answer Date Recorded Nutrition: EVOO Fat Source Unknown 01/25 Nutrition: Servings of Fruits/Vegetables per Day Not on file 01/25/2021 Dental Answer Date Recorded Dental: Regular Dentist Unknown 01/26/20 21 Sex and Gender Information Value Date Recorded Sex Assigned at Not on file Gender Identity Not on file Sexual Orientation Not on file Last Filed Vital Signs Vital Sign Reading Time Taken Comments Blood Pressure 124/68 09/29/2023 10:36 AM SEWING DEPARTMENT SUPERVISOR Pulse 88 09/29/2023 10:36 AM SEWING DEPARTMENT SUPERVISOR Temperature 37 ??C (98.6 ??F) 02/02/2023 3:03 PM CDT Respiratory Rate 18 04/28/2014 10:16 PM CDT Oxygen Saturation 96% 02/02/2023 3:03 PM CDT Inhaled Oxygen Concentration - - Weight 132 kg (290 lb 12.6 oz) 09/29/2023 10:36 AM SEWING DEPARTMENT SUPERVISOR Height 170 cm (5' 6.93) 09/29/2023 10:36 AM SEWING DEPARTMENT SUPERVISOR Body Mass Index 45.64 09/29/2023 10:36 AM SEWING DEPARTMENT SUPERVISOR Plan of Treatment Not on file
--- OUTSIDE RECORDS SUMMARY | 2023-12-03 10:25 | XMS_ITS | Encounter Summary ---
Author Name Unknown Organization [facility] Address [address] [place] [id number] Care Team Providers Care Inspector Plating Name Role Phone Unavailable Primary Care Provider Unavailabl e Encounter Details Date Type Department Care Team (Late st Contact Info) Description 01/19/2023 Clinical Communication Division of Nephrology and Hypertension in [place], [place] [address] [place] [address] Vince Chopra Jr., D.O. [address] [place] [address] Social History Tobacco Use Types Packs/Day Years [...] on file Sexual Orientation Not on file documented as of this encounter Miscellaneous Notes * Telephone Encounter - Vince Chopra Jr., D.O. - 01/19/2023 1:30 PM ROUGH ROUNDER MACHINE Phone note: He phone today to let us know that he has been steadily accumulating fluid in his legs since the amlodipine was started. He relates that he has been very careful with salt. I am going to prescribe torsemide 10 mg orally daily for him, and asked him to take in more fruits and vegetables to support his potassium. Asked him to get back to me within a few weeks to let me know how things are going. H ROUNDER MACHINE documented in this encounter Plan of Treatment Not on file documented as of this encounter Visit Diagnoses Not on filedocumented in this encounter
--- OUTSIDE RECORDS SUMMARY | 2023-12-03 10:25 | XMS_ITS | Encounter Summary ---
Author Name Unknown Organization [facility] Address [address] [place] [address] Care Team Providers Care Modern Greek Studies Professor Name Role Phone Unavailable Primary Care Provider Unavailabl e Reason for Visit * Appointment Request (Routine) - Closed Specialty Diagnoses / Procedures Referred By Bhavik ledesma Referred To Contact Nephrology and Hypertension Referral ID Status Reason Start Date Expiration Date Visits Re quested Visits Authorized [id number] Closed 09/11/2023 09/10/2024 1 1 Encounter Details Date Type Department Care Team (Latest Contact Info) Description 09/29/2023 10:30 AM OPERATING ROOM SPECIALIST External Outreach Division of Nephrology and Hypertension in [place], [place] [address] [place] [address] Vince Chopra Jr., D.O. [address] [place] [phone] Chronic Kidney Disease (CKD), Stage 3b Glomerular Filtration Rate (GFR) 30 To 44 (HCC) (Primary Dx); Hypertensive Chronic Kidney Disease (CKD) Stage 3b Glomerular Filtration Rate (GFR) 30 To 44 (HCC); Diabetes Mellitus Type 2 (HCC); Anemia Of Chronic Renal Failure; Hyperparathyroidism Renal Secondary (HCC); Body Mass Index 40.0 To 44.9 Adult (HCC) Social History Tobacco Use Types Packs/Day Years [...] on file documented as of this encounter Last Filed Vital Signs Vital Sign Reading Time Taken Comments Blood Pressure 124/68 09/29/2023 10:36 AM OPERATING ROOM SPECIALIST Pulse 88 09/29/2023 10:36 AM OPERATING ROOM SPECIALIST Temperature - - Respiratory Rate - - Oxygen Saturation - - Inhaled Oxygen Concentration - - Weight 132 kg (290 lb 12.6 oz) 09/29/2023 10:36 AM OPERATING ROOM SPECIALIST Height 170 cm (5' 6.93) 09/29/2023 10:36 AM OPERATING ROOM SPECIALIST Body Mass Index 45.64 09/29/2023 10:36 AM OPERATING ROOM SPECIALIST documented in this encounter Progress Notes * Vince Chopra Jr., D.O. - 09/29/2023 10:30 AM CST Referring Provider: No primary care provider on file. SUBJECTIVE REASON FOR VISIT [facility] Follow-up regards diabetes mellitus, CKD, foot wounds and hypertension HISTORY OF PRESENT ILLNESS Mr. Hampton is a 63 y.o. male who presents with , history of CKD stage IIIB on the background of diabetes mellitus, hypertension, and previous foot wounds. Since our last visit his diabetes has been well controlled, the addition of the G LP 1 agonist has helped quite a bit. We have been able to decrease his insulin dose. He is having some hypoglycemic events which have ceased now that we have decreased his insulin slightly. He was having nocturnal sweating episodes, which were occurring frequently. I was also notified that his carrier was denying the G LP 1 agonist without this current documentation that this agent is primarily for his diabetes control. His blood pressures been well controlled he has had no orthostatic issues. He is adherent to his complex medical regimen, and has been using lower extremity pumping devices. He has had no chest pain no shortness of breath. I appreciate that in August his urine output had dropped off and his serum creatinine had abruptlyrisen from 2.1-3.3 mg/dL. I note that this was accompanied by an increase in his hemoglobin, and a very high BUN to creatinine ratio. Endorses around this time that he was quite dehydrated, as he was completing his work and moving on to being retired. He is not used any NSAIDs, and I was delighted to hear that his foot wounds have finally healed. No past medical history on file. Current Outpatient Medications: albuterol 2.5 mg /3 mL nebulizer solution, Inhale 3 mL (2.5 mg total) by nebulization 4 (four) times a day., Disp: 120 mL, Rfl: 0 albuterol 90 mcg/actuation inhaler, 1 puff every 4 (four) hours as needed., Disp: , Rfl: aspirin 81 mg capsule, Take 81 mg by mouth., Disp: , Rfl: atorvastatin (LIPITOR) 20 mg tablet, Take 20 mg by mouth daily., Disp: , Rfl: carvediloL (COREG) 25 mg tablet, TAKE 1 AND 1/2 TABLETS(37.5 MG) BY MOUTH TWICE DAILY WITH MEALS, Disp: 270 tablet, Rfl: 3 doxycycline hyclate (VIBRA-TABS) 100 mg tablet, Take 100 mg by mouth every 12 (twelve) hours., Disp: , Rfl: DULoxetine (CYMBALTA) [address] capsule, Take 60 mg by mouth daily., Disp: , Rfl: insulin NPH 100 unit/mL injection, Inject under the skin., Disp: , Rfl: iron,carbonyl-vitamin C (VITRON-C) 65 mg iron- [address] tablet, Take 1 tablet (65 mg of iron total) by mouth daily. Do not crush or chew., Disp: 60 tablet, Rfl: 1 losartan-hydroCHLOROthiazide (HYZAAR) 100-25 mg per tablet, Take 1 tablet by mouth daily., Disp: , Rfl: metFORMIN XR (GLUCOPHAGE-XR) 500 mg 24 hr tablet, Take 1,000 mg by mouth 2 (two) times a day., Disp: , Rfl: predniSONE (DELTASONE) 20 mg tablet, Take 2 tablets (40 mg total) by mouth daily., Disp: 10 tablet,Rfl: 0 semaglutide (Ozempic) 0.25 mg or 0.5 mg (2 mg/3 mL) injection, Inject 0.25 mg under the skin every 7 (seven) days., Disp: 4.5 mL, Rfl: 3 torsemide (DEMADEX) 20 mg tablet, Take 0.5 tablets (10 mg total) by mouth as directed. MWF, Disp: 100 tablet, Rfl: 3 REVIEW OF SYSTEMS All other systems reviewed and are negative. OBJECTIVE BP 124/68 Pulse 88 Ht 170 cm Wt 132 kg BMI 45.64 kg/m?? PHYSICAL EXAMINATION General: Awake alert oriented HEENT: ARNAV, EOMI, Mucous membranes moist, no oral lesions Neck: No Masses, No Bruits Lungs: Clear to ascultation Heart: Regular Rate and Rhythm, No ectopy Murmurs or rubs Abdomen: Soft, Non-tender Extremities: No cyanosis, No clubbing: No edema, he is wearing diabetic shoes Neuro: Cranial Nerves intact, but he is somewhat hard of hearing, Gait is normal, strength grossly normal Skin: no suspicious lesions identified Psychiatric: Normal affect DIAGNOSTICS Note serum creatinine 2.3 mg/dL, BUN 34, hemoglobin A1c 6.5%, hemoglobin 12.3 ASSESSMENT / PLAN #1 Chronic Kidney Disease (CKD), Stage 3b Glomerular Filtration Rate (GFR) 30 To 44 ([facility]) His CKD has subtly worsened over time on the background of his diabetic hypertensive and ischemic nephrosclerosis. It is critical we maintain effective circulating volume, and strike the balance withrespect to his diuretic agents. I agree entirely with his using lower extremity compression devicesto help minimize the diuretic utilization. Going forward: 1. Goal glycosylated hemoglobin less than 7.5% 2. Goal blood pressure less than 120s to 130s over 80s 3. No NSAIDs or Gould 2 inhibitors 4. Low-sodium diet less than 3000 mg sodium per day 5. Stay well hydrated at least 50 oz of liquid per day 6. Return to clinic in 4 months, we may need to begin to discuss renal replacement options. #2 Hypertensive Chronic Kidney Disease (CKD) Stage 3b Glomerular Filtration Rate (GFR) 30 To 44 (HCC) He is still slightly above goal blood pressure values at times, but more recently and at the visit today his blood pressures are acceptable. I congratulated him on the sodium avoidance, and he is actually lost a bit of weight since our last visit. Was profoundly fatigued at our last visit and we had attempted to orchestrate a sleep study, which may have also led to some of his hypertension. However, was unable to get this covered by his insurance. He seems to be resting more effectively, and is no longer quite as fatigued. We will continue on his extensive regimen which includes: 1. Carvedilol 37.5 mg orally twice daily, 2.losartan/hydrochlorothiazide 100/25 mg 1 orally daily 3. torsemide 20 mg orally daily. #3 Diabetes Mellitus Type 2 (HCC) We will continue on his current regimen including his insulin, his metformin, and his Ozempic at 0.25 mg every 7 days. His Ozempic is being utilized to treat his diabetes which has been refractory in the past, and thisagent has been quite effective at bring him into better control. This note will also serve as a dispute to his medical benefits team for not covering the G LP 1 agonist. It is my firm opinion he is on the cusp of life-threatening complications from his diabetes withoutexcellent control and the G LP 1 agonist is essential for his diabetes control. #4 Anemia Of Chronic Renal Failure His hemoglobin is 12.3, just slightly below threshold he does not need any MIKA regimen, his iron stores are acceptable. #5 Hyperparathyroidism Renal Secondary (HCC) Calcium and phosphorus are acceptable we will continue to monitor his PTH. #6 Body Mass Index 40.0 To 44.9 Adult (HCC) His weight has stabilized Total time: 40 minutes Counseling Time: 25 minutes Vince Chopra Jr., D.O. ATING ROOM SPECIALIST documented in this encounter Plan of Treatment Not on file documented as of this encounter Visit Diagnoses Diagnosis Chronic Kidney Disease (CKD), Stage 3b Glomerular Filtration Rate (GFR) 30 To 44 (HCC)- Primary Hypertensive Chronic Kidney Disease (CKD) Stage 3b Glomerular Filtration Rate (GFR) 30 To 44 (HCC) Diabetes Mellitus Type 2 (HCC) Anemia Of Chronic Renal Failure Hyperparathyroidism Renal Secondary (HCC) Body Mass Index 40.0 To 44.9 Adult (HCC) documented in this encounter
--- OUTSIDE RECORDS SUMMARY | 2023-12-03 10:25 | XMS_ITS | Encounter Summary ---
Author Name Unknown Organization [facility] Address [address] [place] [id number] Care Team Providers Care Personal Injury Legal Assistant Name Role Phone Unavailable Primary Care Provider Unavailabl e Reason for Visit * Reason Onset Date Comments Fluid retention in legs and feet x 1+ week 01/19 Encounter Details Date Type Department Care Team (Latest Contact Info) Description 01/19/2023 Clinical Communication Division of Nephrology and Hypertension in [place], [place] [address] [place] [phone] Vince Chopra Jr., D.O. [address] [place] [address] Fluid retention in legs and feet x 1+ week Social History Tobacco Use Types Packs/Day Years [...] encounter Miscellaneous Notes * Telephone Encounter - Gracia Craig Louisa - 01/19/2023 7:13 AM CST Caller is: patient Preferred Communication Method: [phone] (mobile) Reason for call: Dr. Chopra started Mr. Hampton on Amlodipine on December 02, 2022. Over the last several weeks or so, patient has noticed swelling in his legs and feet, however, this has become much more severe over the last week. He feels he needs a water pill. No other symptoms such as shortness of breath, etc If appropriate, please call Rx for water pill to [facility] in [place], [place]. Thanks. ING DIRECTOR documented in this encounter Plan of Treatment Not on file documented as of this encounter Visit Diagnoses Not on filedocumented in this encounter
--- OUTSIDE RECORDS SUMMARY | 2023-12-03 10:25 | XMS_ITS | Encounter Summary ---
Author Name Unknown Organization [facility] Address [address] [place] [address] Care Team Providers Care Automation Technician Name Role Phone Unavailable Primary Care Provider Unavailabl e Reason for Visit * Reason Onset Date Comments reaction to amlodipine 01/19/2023 Encounter Details Date Type Department Care Team (Latest Contact Info) Description 01/19/2023 Clinical Communication Division of Nephrology and Hypertension in [place], [place] [address] [place] [phone] Vince Chopra Jr., D.O. [address] [place] [phone] reaction to amlodipine Social History Tobacco Use Types Packs/Day Years [...] encounter Miscellaneous Notes * Telephone Encounter - Linette Solomon - 01/19/2023 12:27 PM CST Caller is: patient Preferred Communication Method: [phone] (mobile) Reason for call: Patient said that he had a reaction to the amlodipine. His ankles and legs are swollen all the way up . It's difficult to walk, and he still needs to work. He stopped taking the amlodipine and is wearing compression socks to try to get the swelling down. He is wondering if he should be taking waterpills to get the swelling down. He utilizes the [facility] pharmacy in [place]. Please call patient. Thanks L MODEL BUILDER documented in this encounter Plan of Treatment Not on file documented as of this encounter Visit Diagnoses Not on filedocumented in this encounter
--- OUTSIDE RECORDS SUMMARY | 2023-12-03 10:25 | XMS_ITS | Clinical Summary ---
Author Name Unknown Organization [facility] Address [place], [place] [address] Care Team Providers Care Mechanic Assistant Name Role Phone Gunner Carrasco MD Primary Care Provider [phone] Allergies Active Allergy Reactions Criticality Noted Date Comments Benazepril Cough 06/22/2017 Latex Rash 07/08/2022 Blisters from compression stockings Medications Medication Sig Dispensed Refills Start Date End Date Status metFORMIN (GLUCOPHAGE XR) 500 mg Extended-Release tablet Take 1,000 mg by mouth in the morning and 1,000 mg in the evening. 0 05/03/2022 Active losartan-hydrochlor othiazide (HYZAAR) 100-25 mg tablet Take 1 Tablet by mouth once daily. 0 05/03/2022 Active atorvastatin (LIPITOR) 20 mg tablet Take 20 mg by mouth once daily. 0 02/25/2022 Active DULoxetine (CYMBALTA) 60 mg Delayed-release capsule Take 60 mg by mouth once daily. 0 05/11/2022 Active aspirin 81 mg cap Take 81 mg by mouth once daily. 0 07/08/2022 Active insulin NPH isophane, U-100, (NOVOLIN-N, HUMULIN-N) 100 unit/mL susp injection Inject subcutaneous before breakfast. 0 07/08/2022 Active albuterol HFA (PRO-AIR; VENTOLIN; PROVENTIL) 90 mcg/actuation inhaler 1 Puff every 4 hours if needed. 0 09/11/2022 Active Social History Tobacco Use Types Packs/Day Years Used Date Smoking Tobacco: Never Assessed Sex and Gender Information Value Date Recorded Sex Assigned at Not on file Gender Identity Not on file Sexual Orientation Not on file Obstetrics History Last Filed Vital Signs Vital Sign Reading Time Taken Comments Blood Pressure 150/77 10/21/2022 3:19 PM POLICE RESERVES COMMANDER Pulse 67 10/21/2022 3:19 PM POLICE RESERVES COMMANDER Temperature - - Respiratory Rate - - Oxygen Saturation 96% 10/21/2022 3:19 PM POLICE RESERVES COMMANDER Inhaled Oxygen Concentration - - Weight 140.2 kg (309 lb) 07/08/2022 4:21 PM CDT Height - - Body Mass Index - - Plan of Treatment Health Maintenance Due Date Last Done Comments Tdap 02/27/1972 Depression screening for age 12+ 1973 HIV for age 15-65 02/27/1976 BMI (ht and wt on same day) for age 18+ 1979 Hepatitis C screening for age 18-79 1979 Tetanus booster 1981 Colonoscopy through age 75 2006 Lipids for age 45-75 2006 Zoster (shingles) series for age 50+ (1 of 2) 2011 COVID-19 vaccine series (2022-24 season) 2023 08/10/2022, 02/19/2022, 09/17/2021, Additional history exists Influenza for age 50-64 07/24/2023 Pneumococcal series for age 6-64 Aged Out No longer eligible based on patient's age to complete this topic Care Teams Mechanic Assistant Relationship Specialty Start Date End Date Gunner Carrasco MD [address] [place] [phone] PCP - General Family Practice 07/08/22
--- OUTSIDE RECORDS SUMMARY | 2023-12-03 10:25 | XMS_ITS | Encounter Summary ---
Author Name Unknown Organization [facility] Address [address] [place] [address] Care Team Providers Care J2Ee Java Developer Name Role Phone Unavailable Primary Care Provider Unavailabl e Reason for Visit * Reason Comments Med Refill Encounter Details Date Type Department Care Team (Late st Contact Info) Description 05/04/2023 Refill Division of Nephrology and Hypertension in [place], [place] [address] [place] [phone] Vince Chopra Jr., D.O. [address] [place] [phone] Med Refill Social History Tobacco Use Types Packs/Day Years [...] on file documented as of this encounter Plan of Treatment Not on file documented as of this encounter Visit Diagnoses Not on filedocumented in this encounter
--- OUTSIDE RECORDS SUMMARY | 2023-12-03 10:25 | XMS_ITS | Encounter Summary ---
Author Name Unknown Organization [facility] Address [address] [place] [address] Care Team Providers Care Seafood Team Member Name Role Phone Unavailable Primary Care Provider Unavailabl e Reason for Referral * Medication Prior Authorization - Authorized Specialty Diagnoses / Procedures Referred By Bhavik ledesma Referred To Contact Vince Chopra Jr., D.OGloria [address] [place] [address] Referral ID Status Reason Start Date Expiration Date V isits Requested Visits Authorized [id number] Authorized 11/23/2023 11/22/2024 1 1 Reason for Visit * Appointment Request (Routine) - Closed Specialty Diagnoses / Procedures Referred By Bhavik ledesma Referred To Contact Nephrology and Hypertension Referral ID Status Reason Start Date Expiration Date Visits Re quested Visits Authorized [id number] Closed 05/01/2023 04/30/2024 1 1 Encounter Details Date Type Department Care Team (Latest Contact Info) Description 06/02/2023 3:30 PM CDT External Outreach Division of Nephrology and Hypertension in [place], [place] [address] [place] [phone] Vince Chopra Jr., D.O. [address] [place] [phone] Chronic Kidney Disease (CKD), Stage 3b Glomerular Filtration Rate (GFR) 30 To 44 (HCC) (Primary Dx); Hypertensive Chronic Kidney Disease (CKD) Stage 3b Glomerular Filtration Rate (GFR) 30 To 44 (HCC); Diabetes Mellitus Type 2 (HCC); Anemia Of Chronic Renal Failure; Hyperparathyroidism Renal Secondary ([facility]) Social History Tobacco Use Types Packs/Day Years [...] Sign Reading Time Taken Comments Blood Pressure 132/64 06/02/2023 3:33 PM CDT Pulse 73 06/02/2023 3:33 PM CDT Temperature - - Respiratory Rate - - Oxygen Saturation - - Inhaled Oxygen Concentration - - Weight 141 kg (309 lb 15.5 oz) 06/02/2023 3:33 P M CDT Height 170.1 cm (5' 6.97) 06/02/2023 3:33 PM CD T Body Mass Index 48.59 06/02/2023 3:33 PM CDT documented in this encounter Progress Notes * Vince Chopra Jr., D.O. - 06/02/2023 3:30 PM CDT Referring Provider: No primary care provider on file. SUBJECTIVE REASON FOR VISIT [facility] Follow-up regards medically complicated overweight, hypertension, diabetes mellitus, CKD stage IIIA HISTORY OF PRESENT ILLNESS Mr. Hampton is a 63 y.o. male who presents with the above issues. He is complaining of being absolutely exhausted. He awakens without any energy and through the day struggles to stay awake. He has no trouble falling asleep sitting still in a chair and is concerned about driving. He was told in the past that he had obstructive sleep apnea but apparently never wentthrough with the sleep study. We will arrange for this as soon as possible. Home blood pressures are tract with a wrist cuff and generally are between the 135 and 145 systolicrange. He has had no orthostatic issues. Continues to see our wound center regards bilateral great toe wounds, which had been improving and then worsened again. Overall there is not tremendous concern although the team is hoping we could work towards goals of better control of his weight, blood pressure, and glycemic issues. I note that his hemoglobin A1c is 7.3%. Has been trying his best to be cautious with his food choices, does occasionally forget to take his insulin in the evening however, which sets up a difficult set of circumstances were then he is too low and too high multiple times for usually up to 24 hours. He has been adjusting his insulin appropriately. No fevers no chills no chest pain. No other cardiovascular complaints. History reviewed. No pertinent past medical history. Current Outpatient Medications: albuterol 2.5 mg /3 [...] 3 torsemide (DEMADEX) 20 mg tablet, Take 1 tablet (20 mg total) by mouth daily., Disp: 90 tablet, Rfl: 3 REVIEW OF SYSTEMS All other systems reviewed and are negative. OBJECTIVE BP 132/64 Pulse 73 Ht 170.1 cm Wt (!) 141 kg BMI 48.59 kg/m?? PHYSICAL EXAMINATION General: Awake alert oriented HEENT: ARNAV, EOMI, Mucous membranes moist, no oral lesions Neck: No Masses, No Bruits Lungs: Clear to ascultation, distant breath sounds Heart: Regular Rate and Rhythm, No ectopy Murmurs or rubs Abdomen: Soft, Non-tender, protuberant Extremities: No cyanosis, No clubbing: Massive nonpitting Sterling indurated lower extremity swelling Neuro: Cranial Nerves intact, Gait is antalgic, uses a cane strength grossly normal Skin: no suspicious lesions identified Psychiatric: Normal affect DIAGNOSTICS Note creatinine 2.0 mg/dL microalbumin to creatinine ratio 10 milligrams/gram, hemoglobin A1c 7.3%,hemoglobin 12.7, potassium 5.2. ASSESSMENT / PLAN #1 Chronic Kidney Disease (CKD), Stage 3b Glomerular Filtration Rate (GFR) 30 To 44 (HCC) I am satisfied regarding his blood pressure and glycemic control, but he is lost a bit of renal function with a creatinine now up to 2.0. Going forward: 1. We need better blood pressure control, and I am hopeful that we can facilitate some weight loss with the maneuvers as noted below, with the addition of a G LP 1 agonist. 2. I will see him back in 3 months 3. Goal blood pressure less than 120/80 4. Goal glycosylated hemoglobin less than 7.5% 5. Goal to keep his weight stable if not decreased by 10% over the next 12 months 6. Investigate and treat his sleep apnea #2 Hypertensive Chronic Kidney Disease (CKD) Stage 3b Glomerular Filtration Rate (GFR) 30 To 44 (HCC) Goal blood pressures are likely achieved at home given he is using a wrist cuff, and these overestimate blood pressure. Please see above discussion he will continue to avoid sodium, and we will continue his current antihypertensive regimen. #3 Diabetes Mellitus Type 2 (HCC) Reasonable control, but I will add Ozempic 0.25 mg on a weekly basis subcu, I have warned him aboutnausea, and given him my card to contact me. Otherwise we will continue with his insulin, and he will continue with his continuous glucose monitor. #4 Anemia Of Chronic Renal Failure No need for any MIKA regimen iron stores acceptable #5 Hyperparathyroidism Renal Secondary (HCC) Calcium and phosphorous acceptable. #6 Obstructive sleep apnea I am going to have him tested and and hopefully begin a regimen of therapy for him. Total time: 40 minute Counseling Time: 30 minutes Vince Chopra Jr., D.O. documented in this encounter Plan of Treatment Not on file documented as of this encounter Visit Diagnoses Diagnosis Chronic Kidney Disease (CKD), Stage 3b Glomerular Filtration Rate (GFR) 30 To 44 (HCC)- Primary Hypertensive Chronic Kidney Disease (CKD) Stage 3b Glomerular Filtration Rate (GFR) 30 To 44 (HCC) Diabetes Mellitus Type 2 (HCC) Anemia Of Chronic Renal Failure Hyperparathyroidism Renal Secondary (HCC) documented in this encounter
--- OUTSIDE RECORDS SUMMARY | 2023-12-03 10:25 | XMS_ITS ---
Author Name Unknown Organization [facility] Address [address] [place] [address] Care Team Providers Care Converter Operator Name Role Phone Unavailable Unavailable Unavailable Surgery Details Not on file Complications Check Surgery Details section. Procedure Estimated Blood Loss Check Surgery Details section. Procedure Findings Check Surgery Details section. Procedure Specimens Taken Check Surgery Details section.
--- OUTSIDE RECORDS SUMMARY | 2023-12-03 10:25 | XMS_ITS | Encounter Summary ---
Author Name Unknown Organization [facility] Address [address] [place] [address] Care Team Providers Care Branch Logistics Supervisor Name Role Phone Unavailable Primary Care Provider Unavailabl e Reason for Referral * Outpatient (Routine) - Closed Specialty Diagnoses / Procedures Referred By Bhavik ledesma Referred To Contact Diagnoses Shortness Of Breath Procedures DX Chest AP or PA and Lateral 2 Views Dimple Verde APRN, C.N.Tila., M.S.N. [address] [place] [phone] [facility] Region Referral ID Status Reason Start Date Expiration Date Visits Re quested Visits Authorized [id number] Closed 02/02/2023 02/02/2024 1 1 Reason for Visit * Outpatient (Routine) - Closed Specialty Diagnoses / Procedures Referred By Bhavik ledesma Referred To Contact Diagnoses Shortness Of Breath Procedures DX Chest AP or PA and Lateral 2 Views Dimple Verde APRN, Francisco Javier.N.P., M.S.N. [address] [place] [phone] [facility] Region Referral ID Status Reason Start Date Expiration Date Visits Re quested Visits Authorized [id number] Closed 02/02/2023 02/02/2024 1 1 Encounter Details Date Type Department Care Team (Latest Contact Info) Description 02/02/2023 3:38 PM CDT - 02/02/2023 11:59 PM CDT Hospital Encounter Department of Radiology, [facility], in [place], [place] [address] [place] [phone] Dimple Verde APRN, C.N.P., M.S.N. [address] [place] [phone] Shortness Of Breath Discharge Disposition: Home or Self Care Social History Tobacco Use Types Packs/Day Years [...] on file documented as of this encounter Medications at Time of Discharge Medication Sig Dispensed Refills Start Date End Date albuterol 2.5 mg /3 mL nebulizer solution Inhale 3 mL (2.5 mg total) by nebulization 4 (four) times a day. 120 mL 0 02/02/2023 albuterol 90 mcg/actuation inhaler 1 puff every 4 (four) hours as needed. 0 09/11/2022 aspirin 81 mg capsule Take 81 mg by mouth. 0 07/08/2022 atorvastatin (LIPITOR) 20 mg tablet Take 20 mg by mouth daily. 0 01/16/2023 doxycycline hyclate (VIBRA-TABS) 100 mg tablet Take 100 mg by mouth every 12 (twelve) hours. 0 11/21/2022 DULoxetine (CYMBALTA) [address] capsule Take 60 mg by mouth daily. 0 11/01/2022 insulin NPH 100 unit/mL injection Inject under the skin. 0 07/08/2022 iron,carbonyl-vitami n C (VITRON-C) 65 mg iron- [address] tablet Take 1 tablet (65 mg of iron total) by mouth daily. Do not crush or chew. 60 tablet 1 03/25/2022 losartan-hydroCHLORO thiazide (HYZAAR) 100-25 mg per tablet Take 1 tablet by mouth daily. 0 11/01/2022 metFORMIN XR (GLUCOPHAGE-XR) 500 mg 24 hr tablet Take 1,000 mg by mouth 2 (two) times a day. 0 11/01/2022 predniSONE (DELTASONE) 20 mg tablet Take 2 tablets (40 mg total) by mouth daily. 10 tablet 0 02/02/2023 carvediloL (COREG) 25 mg tablet Take 1.5 tablets (37.5 mg total) by mouth 2 (two) times a day with meals. 270 tablet 3 03/31/2022 05/10/2023 torsemide (DEMADEX) 20 mg tablet Take 1 tablet (20 mg total) by mouth daily. 90 tablet 3 01/19/2023 08/31/2023 documented as of this encounter Plan of Treatment Not on file documented as of this encounter Procedures Procedure Name Priority Date/Time Associated Diagnosis Comments DX CHEST AP OR PA AND LATERAL 2 VIEWS RAD - Routine (most inpatients and all outpatients) 02/02/2023 3:46 PM CDT Shortness Of Breath documented in this encounter Results * DX Chest AP or PA and Lateral 2 Views (02/02/2023 3:46 PM CDT) Anatomical Region Laterality Modality Chest, Thoracic RST LOS, Tho racic ARZ LOS, Thoracic FLA LOS N/A Digital Radiography 02/02/2023 3:47 PM CDT Impressions 02/02/2023 3:48 PM CDT No acute airspace disease. Narrative 02/02/2023 3:48 PM CDT EXAM: DX CHEST AP OR PA AND LATERAL 2 VIEWS COMPARISON: None FINDINGS: Lungs are clear of opacity or effusion. No pneumothorax. Cardiac silhouette is enlarged. No acute bony abnormality. Thoracic spine degenerative changes. Procedure Note Brian Padilla D.O. - 02/02/2023 EXAM: DX CHEST AP OR PA AND LATERAL 2 VIEWS COMPARISON: None FINDINGS: Lungs are clear of opacity or effusion. No pneumothorax. Cardiacsilhouette is enlarged. No acute bony abnormality. Thoracic spine degenerative changes. IMPRESSION: No acute airspace disease. Dimple Verde APRN, C.N.P., M.S.N. IMG D IAGNOSTIC IMAGING PROCEDURES documented in this encounter Visit Diagnoses Diagnosis Shortness Of Breath documented in this encounter
--- OUTSIDE RECORDS SUMMARY | 2023-12-03 10:25 | XMS_ITS | Encounter Summary ---
Author Name Unknown Organization [facility] Address [address] [place] [address] Care Team Providers Care Switch Adjuster Name Role Phone Unavailable Primary Care Provider Unavailabl e Reason for Referral * Outpatient (Routine) - Closed Specialty Diagnoses / Procedures Referred By Bhavik t Referred To Contact Diagnoses Shortness Of Breath Procedures DX Chest AP or PA and Lateral 2 Views Dimple Verde APRN, C.N.P., M.S.N. [address] [place] [phone] [facility] Region Referral ID Status Reason Start Date Expiration Date Visits Re quested Visits Authorized [id number] Closed 02/02/2023 02/02/2024 1 1 Reason for Visit * Reason Comments Cough X 3 wks Wheezing Encounter Details Date Type Department Care Team ([facility] st Contact Info) Description 02/02/2023 3:00 PM CDT Office Visit Urgent Care, [facility], in [place], [place] [address] [place] [phone] Dimple Verde APRN, C.N.P., M.S.N. [address] [place] [phone] Shortness Of Breath (Primary Dx); Cough Unspecified Type; Chronic Kidney Disease (CKD), Stage 3b Glomerular Filtration Rate (GFR) 30 To 44 (HCC) Discharge Disposition: Home or Self Care Social [...] Sign Reading Time Taken Comments Blood Pressure 137/67 02/02/2023 3:05 PM CDT Pulse 70 02/02/2023 3:03 PM CDT Temperature 37 ??C (98.6 ??F) 02/02/2023 3:03 PM CDT Respiratory Rate - - Oxygen Saturation 96% 02/02/2023 3:03 PM CDT Inhaled Oxygen Concentration - - Weight 141 kg (311 lb 3.2 oz) 02/02/2023 3:03 PM CDT Height - - Body Mass Index 48.73 12/02/2022 3:33 PM POLYMERIZATION SUPERVISOR documented in this encounter Progress Notes * Dimple Verde APRN, C.N.P., M.S.N. - 02/02/2023 3:00 PM CDT SUBJECTIVE CHIEF COMPLAINT / REASON FOR VISIT Cough (X 3 wks) and Wheezing HISTORY OF PRESENT ILLNESS Geovany Hampton is a 62 y.o. male who presents for evaluation of shortness of breath. The patient states he is not experiencing any chest pain. He states he has been short of breath for about a year now but states he is gotten worse lately. He states he had COVID a year ago when all of his symptomsstarted. He denies a fever. He states he is had a little bit of a cough which has been chronic. He states he is a nebulizer at home which he ran out of. He states the albuterol nebulizer was helping him. He also has an inhaler. He has used it today. He states he feels he has been wheezing for over 3 weeks. It is gradually getting worse. He does take torsemide. He states he takes torsemide becausehis legs were getting swollen and it was causing him cellulitis. He also takes doxycycline for recurrent cellulitis. He states his legs do seem slightly more swollen than previously but does not bring this up unless asked. He does not check his weights at home. He states in the past he has been on prednisone and antibiotics for this. He states he is a history of chronic kidney disease and sees a kidney doctor as well. He states today he wants medication for his cough because he can not get intohis primary care provider for a couple of days. He has a follow-up appointment with primary care himanshu few days. He states he goes to [facility] here in town so his records are not available. The patient's social history, problem list, medications and allergies were reviewed in the electronic medical record. REVIEW OF SYSTEMS A brief review of systems was negative except for that mentioned in the history of present of illness. The patient's social history, medical history, problem list, medications and allergies were reviewed in the electronic medical record. OBJECTIVE VITAL SIGNS BP 137/67 Pulse 70 Temp 37 ??C Wt (!) 141 kg SpO2 96% BMI 48.73 kg/m?? PHYSICAL EXAMINATION Constitutional General: He is not in acute distress. Appearance: Normal appearance. He is not toxic-appearing. HENT Head: Normocephalic and atraumatic. Right Ear: Tympanic membrane, ear canal and external ear normal. Left Ear: Tympanic membrane, ear canal and external ear normal. Nose: Nose normal. Eyes Conjunctiva/sclera: Conjunctivae normal. Cardiovascular Rate and Rhythm: Normal rate and regular rhythm. Heart sounds: Normal heart sounds. Pulmonary Effort: Pulmonary effort is normal. Breath sounds: Wheezing, rhonchi and rales present. Chest Chest wall: No tenderness. Musculoskeletal Cervical back: Neck supple. Neurological Mental Status: He is alert. DIAGNOSTICS DX Chest AP or PA and Lateral 2 Views Result Date: 02/02/2023 Impression: No acute airspace disease. ASSESSMENT / PLAN 1. Shortness Of Breath 2. Cough Unspecified Type 3. Chronic Kidney Disease (CKD), Stage 3b Glomerular Filtration Rate (GFR) 30 To 44 (HCC) The patient is up 5 kg since he was last seen at [facility] in November. He is taking Torsemide 20 mg daily. He will monitor this closer and start checking his weights in the mornings which he has not been doing. He has a follow up with his primary care provider at [facility] in a few days. In the meantime I did refill his nebulizer today and he will start Prednisone for his wheezing. If he feels it is not helping then he should reach to his PCP or follow up for more labs as he may need an increase in the Torsemide and would need to have electrolytes and kidney function checked first as I do not have any recent record of this. He understands this and is in agreement. He was reassured that the xray came back normal of his chest. New Medications Ordered This Visit Medications DULoxetine (CYMBALTA) [address] capsule Sig: Take 60 mg by mouth daily. insulin NPH 100 unit/mL injection Sig: Inject under the skin. losartan-hydroCHLOROthiazide (HYZAAR) 100-25 mg per tablet Sig: Take 1 tablet by mouth daily. metFORMIN XR (GLUCOPHAGE-XR) 500 mg 24 hr tablet Sig: Take 1,000 mg by mouth 2 (two) times a day. doxycycline hyclate (VIBRA-TABS) 100 mg tablet Sig: Take 100 mg by mouth every 12 (twelve) hours. atorvastatin (LIPITOR) 20 mg tablet Sig: Take 20 mg by mouth daily. aspirin 81 mg capsule Sig: Take 81 mg by mouth. albuterol 90 mcg/actuation inhaler Si puff every 4 (four) hours as needed. albuterol 2.5 mg /3 mL nebulizer solution Sig: Inhale 3 mL (2.5 mg total) by nebulization 4 (four) times a day. Dispense: 120 mL Refill: 0 Patient agrees with plan and verbalizes understanding of plan. Patient was provided verbal and written education and has no further questions or concerns. He will follow up as needed or at the next scheduled return visit. He will call the clinic if there are any further questions or concerns in themeantime. documented in this encounter Plan of Treatment Not on file documented as of this encounter Results * DX Chest AP [...] IMPRESSION: No acute airspace disease. Dimple Verde APRN C.N.P., M.S.N. IMG D IAGNOSTIC IMAGING PROCEDURES documented in this encounter Visit Diagnoses Diagnosis Shortness Of Breath- Primary Cough Unspecified Type Chronic Kidney Disease (CKD), Stage 3b Glomerular Filtration Rate (GFR) 30 To 44 (HCC) Shortness Of Breath documented in this encounter
--- OUTSIDE RECORDS SUMMARY | 2023-12-03 10:25 | XMS_ITS | Encounter Summary ---
Author Name Unknown Organization [facility] Address [address] [place] [address] Care Team Providers Care Dye Can Operator Name Role Phone Unavailable Primary Care Provider Unavailabl e Encounter Details Date Type Department Care Team (Late st Contact Info) Description 01/19/2023 Orders Only Division of Nephrology and Hypertension in [place], [place] [address] [place] [phone] Vince Chopra Jr., D.O. [address] [place] [phone] Social History Tobacco Use Types Packs/Day Years [...]
--- OUTSIDE RECORDS SUMMARY | 2023-12-03 10:25 | XMS_ITS | Encounter Summary ---
Author Name Unknown Organization [facility] Address [address] [place] [address] Care Team Providers Care Fleet Service Manager Name Role Phone Unavailable Primary Care Provider Unavailabl e Reason for Visit * Appointment Request (Routine) - Closed Specialty Diagnoses / Procedures Referred By Bhavik ledesma Referred To Contact Nephrology and Hypertension Referral ID Status Reason Start Date Expiration Date Visits Re quested Visits Authorized [id number] Closed 07/16/2023 07/15/2024 1 1 Encounter Details Date Type Department Care Team (Latest Contact Info) Description 08/31/2023 3:00 PM CDT External Outreach Division of Nephrology and Hypertension in [place], [place] [address] [place] [address] Vince Chopra Jr., D.O. [address] [place] [phone] Chronic Kidney Disease (CKD), Stage 3b Glomerular Filtration Rate (GFR) 30 To 44 (HCC) (Primary Dx); Hypertensive Chronic Kidney Disease (CKD) Stage 3b Glomerular Filtration Rate (GFR) 30 To 44 (HCC); Diabetes Mellitus Type 2 (HCC); Hyperparathyroidism Renal Secondary (HCC); Body Mass Index [...] Sign Reading Time Taken Comments Blood Pressure 120/62 08/31/2023 3:12 PM CDT Pulse 85 08/31/2023 3:12 PM CDT Temperature - - Respiratory Rate - - Oxygen Saturation - - Inhaled Oxygen Concentration - - Weight 132 kg (289 lb 14.5 oz) 08/31/2023 3:12 P M CDT Height 170.1 cm (5' 6.97) 08/31/2023 3:12 PM CD T Body Mass Index 45.45 08/31/2023 3:12 PM CDT documented in this encounter Progress Notes * Vince Chopra Jr., D.O. - 08/31/2023 3:00 PM CDT Referring Provider: No primary care provider on file. SUBJECTIVE REASON FOR VISIT [place] out reach CKD Clinic Follow-up regards hypertension, diabetes mellitus, CKD HISTORY OF PRESENT ILLNESS Mr. Hampton is a 63 y.o. male who presents with the above matters, he has been doing very well since last visit he provided me with a log of his blood pressures and of his blood sugars, he has had no hypoglycemic events in his hemoglobin A1c is excellent at 6.5%. He has lost a bit of weight, and is doing well from the perspective of healing up his left great toe wound, he is in a cast currently. No recent antibiotics no NSAIDs no other changes in his medications. He is started on a pumping regimen for his lower extremity swelling which has helped quite a bit. Unfortunately his creatinine has risen, and note that his creatinine was 1.5 in November of this year, rocío to 2.1 and has now increased to 3.3, accompanying a BUN of 70. Again no other herbal remedies or other changes in his regimen. No rash, no other changes in his perspective History reviewed. No pertinent past medical history. Current Outpatient Medications: torsemide (DEMADEX) 20 mg tablet, Take 0.5 tablets (10 mg total) by mouth as directed. MWF, Disp: 100 tablet, Rfl: 3 albuterol 2.5 mg /3 mL nebulizer solution, [...] (seven) days., Disp: 4.5 mL, Rfl: 3 REVIEW OF SYSTEMS All other systems reviewed and are negative. OBJECTIVE BP 120/62 Pulse 85 Ht 170.1 cm Wt 132 kg BMI 45.45 kg/m?? PHYSICAL EXAMINATION General: Awake alert oriented HEENT: ARNAV, EOMI, Mucous membranes moist, no oral lesions Neck: No Masses, No Bruits Lungs: Clear to ascultation Heart: Regular Rate and Rhythm, No ectopy Murmurs or rubs Abdomen: Soft, Non-tender Extremities: No cyanosis, no edema call he was a left lower foot cast Neuro: Cranial Nerves intact, Gait is normal, strength grossly normal Skin: no suspicious lesions identified Psychiatric: Normal affect DIAGNOSTICS Note creatinine increased to 3 point 1 mg/dL BUN 70, normal CBC normal chemistries hemoglobin A1c 6.5% microalbumin to creatinine ratio was normal ASSESSMENT / PLAN #1 Chronic Kidney Disease (CKD), Stage 3b Glomerular Filtration Rate (GFR) 30 To 44 (HCC) He has CKD on the background of nephrosclerosis which is likely hypertensive. Acute kidney injury is puzzling, does not seem to be any new medications, perhaps we are over diuresing. Going forward: 1. We will decrease his torsemide from 20 mg orally daily to 10 mg on Thursday, otherwise we will continue on his other antihypertensive regimen, which does include a combination ARB and HCTZ agent. 2. Goal glycosylated hemoglobin level less than 7.5% 3. No nephrotoxins 4. I will have him return to clinic with labs in 1 month. #2 Hypertensive Chronic Kidney Disease (CKD) Stage 3b Glomerular Filtration Rate (GFR) 30 To 44 (HCC) Goal blood pressures achieved, he is doing quite well from this perspective, I believe this could be some of the issue with respect hemodynamic changes leading to his acute kidney injury. Was unable to get his insurance to approve his sleep study. This is quite disturbing. #3 Diabetes Mellitus Type 2 ([facility]) Excellent glycemic control I congratulated him. #4 Hyperparathyroidism Renal Secondary (HCC) Calcium phosphorus PTH levels are excellent #5 Body Mass Index 40.0 To 44.9 Adult ([facility]) He is doing quite well from this perspective losing a bit of weight, I appreciate that he is continuing to see the [facility] regards his left great toe wound Total time: 35 minute Counseling Time: 20 minutes Vince Chopra Jr., D.O. documented in this encounter Plan of Treatment Not on file documented as of this encounter Visit Diagnoses Diagnosis Chronic Kidney Disease (CKD), Stage 3b Glomerular Filtration Rate (GFR) 30 To 44 (HCC)- Primary Hypertensive Chronic Kidney Disease (CKD) Stage 3b Glomerular Filtration Rate (GFR) 30 To 44 (HCC) Diabetes Mellitus Type 2 (HCC) Hyperparathyroidism Renal Secondary (HCC) Body Mass Index 40.0 To 44.9 Adult ([facility]) documented in this encounter
--- OUTSIDE RECORDS SUMMARY | 2023-12-03 10:25 | XMS_ITS | Encounter Summary ---
Author Name Unknown Organization [facility] Address [address] [place] [address] Care Team Providers Care Segmental Paver Installer Name Role Phone Unavailable Primary Care Provider Unavailabl e Reason for Visit * Reason Onset Date Comments RX APPROVAL 10/28/2023 OZEMPIC 0.25MG Encounter Details Date Type Department Care Team (Latest Contact Info) Description 10/28/2023 Clinical Communication Pharmacy Prior Auth RO [id number] Lizandro Martell RX APPROVAL (OZEMPIC 0.25MG) Social History Tobacco Use Types Packs/Day Years [...] encounter Miscellaneous Notes * Telephone Encounter - Lizandro Martell - 10/28/2023 2:51 PM CST Pharmaceutical prior authorization has been approved for [OZEMPIC 0.25MG ]. If you have any follow-up questions, please send an [employer] in ChangeTip message to P [facility] POOL. S ROUTER documented in this encounter Plan of Treatment Not on file documented as of this encounter Visit Diagnoses Not on filedocumented in this encounter
== END 2023-12-03 10:16 | disposition home or self-care (01) ==
LOC: WOUND 10:15
PROVIDERS: PCP Family Medicine; Visit Provider Nurse Practitioner Family
DX: E11.621 Type 2 diabetes mellitus with foot ulcer (principal); L97.512 Non-pressure chronic ulcer of other part of right foot with fat layer exposed; L97.522 Non-pressure chronic ulcer of other part of left foot with fat layer exposed; Z79.4 Long term (current) use of insulin; Z79.84 Long term (current) use of oral hypoglycemic drugs
CPT/HCPCS: 97597

== ENCOUNTER 2023-12-10 13:04 | Outpatient (CLI) | payer OTHER, SELFPAY ==
--- OUTSIDE RECORDS SUMMARY | 2023-12-10 13:07 | XMS_ITS ---
Author Name Unknown Organization [facility] Address [address] [place] [address] Care Team Providers Care Aircraft Servicer Name Role Phone Unavailable Unavailable Unavailable Surgery Details Not on file Complications Check Surgery Details section. Procedure Estimated Blood Loss Check Surgery Details section. Procedure Findings Check Surgery Details section. Procedure Specimens Taken Check Surgery Details section.
--- OUTSIDE RECORDS SUMMARY | 2023-12-10 13:07 | XMS_ITS | Encounter Summary ---
Author Name Unknown Organization [facility] Address [address] [place] [address] Care Team Providers Care Senior Underwriter Name Role Phone Unavailable Primary Care Provider Unavailabl e Reason for Referral * Outpatient (Routine) - Closed Specialty Diagnoses / Procedures Referred By Bhavik t Referred To Contact Diagnoses Shortness Of Breath Procedures DX Chest AP or PA and Lateral 2 Views Dimple Verde APRN, C.N.P., M.S.N. [address] [place] [address] [facility] Region Referral ID Status Reason Start Date Expiration Date Visits Re quested Visits Authorized [id number] Closed 02/02/2023 02/02/2024 1 1 Reason for Visit * Reason Comments Cough X 3 wks Wheezing Encounter Details Date Type Department Care Team ([facility] st Contact Info) Description 02/02/2023 3:00 PM CDT Office Visit Urgent Care, [facility], in [place], [place] [address] [place] [phone] Dimple Verde APRN, C.N.P., M.S.N. [address] [place] [phone] Shortness Of Breath (Primary Dx); Cough Unspecified [...] Body Mass Index 48.73 12/02/2022 3:33 PM TRANSITION OF CARE SPECIALIST documented in this encounter Progress Notes [...] few days. He states he goes to [facility] here in town so his records [...] kg since he was last seen at [facility] in November. He is taking Torsemide 20 mg daily. He will monitor this closer and start checking his weights in the mornings which he has not been doing. He has a follow up with his primary care provider at [facility] in a few days. In the [...]
--- OUTSIDE RECORDS SUMMARY | 2023-12-10 13:07 | XMS_ITS | Encounter Summary ---
Author Name Unknown Organization [facility] Address [address] [place] [address] Care Team Providers Care Surgical Appliance Fitter Name Role Phone Unavailable Primary Care Provider Unavailabl e Reason for Visit * Reason Onset Date Comments RX APPROVAL 10/28/2023 OZEMPIC 0.25MG Encounter Details Date Type Department Care Team (Latest Contact Info) Description 10/28/2023 Clinical Communication Pharmacy Prior Auth RO [id number] Lizandro Martell RX APPROVAL (OZEMPIC 0.25MG) Social [...] have any follow-up questions, please send an [employer] in [employer] message to P [facility] POOL. EMS SOFTWARE DEVELOPER documented in this encounter Plan of Treatment Not on file documented as of this encounter Visit Diagnoses Not on filedocumented in this encounter
--- OUTSIDE RECORDS SUMMARY | 2023-12-10 13:07 | XMS_ITS | Encounter Summary ---
Author Name Unknown Organization [facility] Address [address] [place] [address] Care Team Providers Care Uniformer Name Role Phone Unavailable Primary Care Provider Unavailabl e Reason for Visit * Appointment Request (Routine) - Closed Specialty Diagnoses / Procedures Referred By Bhavik ledesma Referred To Contact Nephrology and Hypertension Referral ID Status Reason Start Date Expiration Date Visits Re quested Visits Authorized [id number] Closed 09/11/2023 09/10/2024 1 1 Encounter Details Date Type Department Care Team (Latest Contact Info) Description 09/29/2023 10:30 AM MASON LINER External Outreach Division of Nephrology and Hypertension in [place], [place] [address] [place] [address] Vince Chopra Jr., D.O. [address] [place] [phone] Chronic Kidney Disease (CKD), Stage 3b Glomerular [...] Comments Blood Pressure 124/68 09/29/2023 10:36 AM MASON LINER Pulse 88 09/29/2023 10:36 AM MASON LINER Temperature - - Respiratory Rate - - Oxygen Saturation - - Inhaled Oxygen Concentration - - Weight 132 kg (290 lb 12.6 oz) 09/29/2023 10:36 AM MASON LINER Height 170 cm (5' 6.93) 09/29/2023 10:36 AM MASON LINER Body Mass Index 45.64 09/29/2023 10:36 AM MASON LINER documented in this encounter Progress Notes * Vince Chopra Jr., D.O. - 09/29/2023 10:30 AM CST Referring Provider: No primary care provider on file. SUBJECTIVE REASON FOR VISIT [place] out reach CKD Clinic Follow-up regards diabetes [...] Glomerular Filtration Rate (GFR) 30 To 44 ([facility]) His CKD has subtly worsened over [...] Time: 25 minutes Vince Chopra Jr., D.O. N LINER documented in this encounter Plan of Treatment [...]
--- OUTSIDE RECORDS SUMMARY | 2023-12-10 13:07 | XMS_ITS | Referral Summary ---
Author Name Unknown Organization [facility] Address [address] [place] [address] Care Team Providers Care Accredited Farm Manager Name Role Phone Unavailable Primary Care Provider Unavailabl e Source Comments Patient records contain information from all sites at [facility]. For routine questions regarding patient records, call [phone] during business hours, M-F 8:00 AM - 5:00 PM Central Time. Record requests for emergency care only can be directed to [phone] at any time.[facility] Encounters Date Type Department Care Team Description 10/28/2023 Clinical Communication Pharmacy Prior Auth [id number] Lizandro Martell RX APPROVAL (OZEMPIC 0.25MG) 09/29/2023 10:30 AM CELLAR PUMPER External Outreach Division of Nephrology and Hypertension in [place], [place] [address] [place] [address] Vince Chopra Jr., D.O. Chronic Kidney Disease (CKD), Stage 3b Glomerular Filtration Rate (GFR) 30 To 44 (HCC) (Primary Dx); Hypertensive Chronic Kidney Disease (CKD) Stage 3b Glomerular Filtration Rate (GFR) 30 To 44 (HCC); Diabetes Mellitus Type 2 (HCC); Anemia Of Chronic Renal Failure; Hyperparathyroidis m Renal Secondary ([facility]); Body Mass Index 40.0 To 44.9 Adult ([facility]) from Last 3 Months Allergies Active Allergy [...] Comments Blood Pressure 124/68 09/29/2023 10:36 AM CELLAR PUMPER Pulse 88 09/29/2023 10:36 AM CELLAR PUMPER Temperature 37 ??C (98.6 ??F) 02/02/2023 3:03 PM CDT Respiratory Rate 18 04/28/2014 10:16 PM CDT Oxygen Saturation 96% 02/02/2023 3:03 PM CDT Inhaled Oxygen Concentration - - Weight 132 kg (290 lb 12.6 oz) 09/29/2023 10:36 AM CELLAR PUMPER Height 170 cm (5' 6.93) 09/29/2023 10:36 AM CELLAR PUMPER Body Mass Index 45.64 09/29/2023 10:36 AM CELLAR PUMPER Plan of Treatment Not on file
--- OUTSIDE RECORDS SUMMARY | 2023-12-10 13:07 | XMS_ITS | Encounter Summary ---
Author Name Unknown Organization [facility] Address [address] [place] [address] Care Team Providers Care First Aid Instructor Name Role Phone Unavailable Primary Care Provider Unavailabl e Reason for Visit * Appointment Request (Routine) - Closed Specialty Diagnoses / Procedures Referred By Bhavik ledesma Referred To Contact Nephrology and Hypertension Referral ID Status Reason Start Date Expiration Date Visits Re quested Visits Authorized [id number] Closed 07/16/2023 07/15/2024 1 1 Encounter Details Date Type Department Care Team (Latest Contact Info) Description 08/31/2023 3:00 PM CDT External Outreach Division of Nephrology and Hypertension in [place], [place] [address] [place] [address] Vince Chopra Jr., D.O. [address] [place] [phone] Chronic Kidney Disease (CKD), Stage 3b Glomerular [...] provider on file. SUBJECTIVE REASON FOR VISIT [place] out reach CKD Clinic Follow-up regards hypertension, [...] quite disturbing. #3 Diabetes Mellitus Type 2 ([facility]) Excellent glycemic control I congratulated him. #4 Hyperparathyroidism Renal Secondary (HCC) Calcium phosphorus PTH levels are excellent #5 Body Mass Index 40.0 To 44.9 Adult ([facility]) He is doing quite well from this [...] Body Mass Index 40.0 To 44.9 Adult ([facility]) documented in this encounter
--- OUTSIDE RECORDS SUMMARY | 2023-12-10 13:07 | XMS_ITS | Encounter Summary ---
Author Name Unknown Organization [facility] Address [address] [place] [address] Care Team Providers Care Roller Staker Name Role Phone Unavailable Primary Care Provider Unavailabl e Reason for Visit * Reason Onset Date Comments reaction to amlodipine 01/19/2023 Encounter Details Date Type Department Care Team (Latest Contact Info) Description 01/19/2023 Clinical Communication Division of Nephrology and Hypertension in [place], [place] [address] [place] [phone] Vince Chopra Jr., D.O. [address] [place] [phone] reaction to amlodipine Social History Tobacco Use [...] CST Caller is: patient Preferred Communication Method: [phone] (mobile) Reason for call: Patient said that [...] get the swelling down. He utilizes the [facility] pharmacy in [place]. Please call patient. Thanks R INSTALLER TECHNICIAN documented in this encounter Plan of Treatment Not on file documented as of this encounter Visit Diagnoses Not on filedocumented in this encounter
--- OUTSIDE RECORDS SUMMARY | 2023-12-10 13:07 | XMS_ITS | Encounter Summary ---
Author Name Unknown Organization [facility] Address [address] [place] [address] Care Team Providers Care Coper Hand Name Role Phone Unavailable Primary Care Provider Unavailabl e Encounter Details Date Type Department Care Team (Late st Contact Info) Description 01/19/2023 Orders Only Division of Nephrology and Hypertension in [place], [place] [address] [place] [phone] Vince Chopra Jr., D.O. [address] [place] [phone] Social History Tobacco Use Types Packs/Day Years [...]
--- OUTSIDE RECORDS SUMMARY | 2023-12-10 13:07 | XMS_ITS | Encounter Summary ---
Author Name Unknown Organization [facility] Address [address] [place] [address] Care Team Providers Care Study Specialist Name Role Phone Unavailable Primary Care Provider Unavailabl e Reason for Referral * Medication Prior Authorization - Authorized Specialty Diagnoses / Procedures Referred By Bhavik ledesma Referred To Contact Vince Chopra Jr., D.OGloria 200 [place] [address] Referral ID Status Reason Start Date Expiration Date V isits Requested Visits Authorized [id number] Authorized 11/23/2023 11/22/2024 1 1 Reason for Visit * Appointment Request (Routine) - Closed Specialty Diagnoses / Procedures Referred By Bhavik ledesma Referred To Contact Nephrology and Hypertension Referral ID Status Reason Start Date Expiration Date Visits Re quested Visits Authorized [id number] Closed 05/01/2023 04/30/2024 1 1 Encounter Details Date Type Department Care Team (Latest Contact Info) Description 06/02/2023 3:30 PM CDT External Outreach Division of Nephrology and Hypertension in [place], [place] [address] [place] [address] Vince Chopra Jr., D.O. [address] [place] [phone] Chronic Kidney Disease (CKD), Stage 3b Glomerular Filtration Rate (GFR) 30 To 44 (HCC) (Primary Dx); Hypertensive Chronic Kidney Disease (CKD) Stage 3b Glomerular Filtration Rate (GFR) 30 To 44 (HCC); Diabetes Mellitus Type 2 (HCC); Anemia Of Chronic Renal Failure; Hyperparathyroidism Renal Secondary ([facility]) Social History Tobacco Use Types Packs/Day Years [...] provider on file. SUBJECTIVE REASON FOR VISIT [place] out reach CKD Clinic Follow-up regards medically [...] Extremities: No cyanosis, No clubbing: Massive nonpitting [place] indurated lower extremity swelling Neuro: Cranial Nerves [...]
--- OUTSIDE RECORDS SUMMARY | 2023-12-10 13:07 | XMS_ITS | Clinical Summary ---
Author Name Unknown Organization [facility] Address [place], [place] [address] Care Team Providers Care Area Field Worker Name Role Phone Gunner Carrasco MD Primary Care Provider [phone] Allergies Active Allergy Reactions Criticality Noted Date [...] Comments Blood Pressure 150/77 10/21/2022 3:19 PM AIRPORT LOCATION MANAGER Pulse 67 10/21/2022 3:19 PM AIRPORT LOCATION MANAGER Temperature - - Respiratory Rate - - Oxygen Saturation 96% 10/21/2022 3:19 PM AIRPORT LOCATION MANAGER Inhaled Oxygen Concentration - - Weight 140.2 [...] age to complete this topic Care Teams Area Field Worker Relationship Specialty Start Date End Date Gunner Carrasco MD [address] [place] [address] PCP - General Family Practice 07/08/22
--- OUTSIDE RECORDS SUMMARY | 2023-12-10 13:07 | XMS_ITS | Clinical Summary ---
Author Name Unknown Organization [facility] Address [address] [place] [address] Care Team Providers Care Scientific Software Engineer Name Role Phone Unavailable Primary Care Provider Unavailabl e Source Comments Patient records contain information from all sites at [facility]. For routine questions regarding patient records, call [phone] during business hours, M-F 8:00 AM - 5:00 PM Central Time. Record requests for emergency care only can be directed to [phone] at any time.[facility] Allergies Active Allergy Reactions Criticality Noted Date [...] 10/28/2023 Clinical Communication Pharmacy Prior Auth RO [phone] Lizandro Martell RX APPROVAL (OZEMPIC 0.25MG) 09/29/2023 10:30 AM SAUSAGE STUFFER External Outreach Division of Nephrology and Hypertension in [place], [place] [address] [place] [address] Vince Chopra Jr., D.O. Chronic Kidney Disease [...] Comments Blood Pressure 124/68 09/29/2023 10:36 AM SAUSAGE STUFFER Pulse 88 09/29/2023 10:36 AM SAUSAGE STUFFER Temperature 37 ??C (98.6 ??F) 02/02/2023 3:03 PM CDT Respiratory Rate 18 04/28/2014 10:16 PM CDT Oxygen Saturation 96% 02/02/2023 3:03 PM CDT Inhaled Oxygen Concentration - - Weight 132 kg (290 lb 12.6 oz) 09/29/2023 10:36 AM SAUSAGE STUFFER Height 170 cm (5' 6.93) 09/29/2023 10:36 AM SAUSAGE STUFFER Body Mass Index 45.64 09/29/2023 10:36 AM SAUSAGE STUFFER Plan of Treatment Health Maintenance Due Date [...]
--- OUTSIDE RECORDS SUMMARY | 2023-12-10 13:07 | XMS_ITS | Encounter Summary ---
Author Name Unknown Organization [facility] Address [address] [place] [address] Care Team Providers Care Precinct Police Captain Name Role Phone Unavailable Primary Care Provider Unavailabl e Encounter Details Date Type Department Care Team (Late st Contact Info) Description 01/19/2023 Clinical Communication Division of Nephrology and Hypertension in [place], [place] [address] [place] [phone] Vince Chopra Jr., D.O. [address] [place] [address] Social History Tobacco Use Types Packs/Day Years [...] Chopra Jr., D.O. - 01/19/2023 1:30 PM VALIDATION MANAGER Phone note: He phone today to let [...] let me know how things are going. DATION MANAGER documented in this encounter Plan of Treatment Not on file documented as of this encounter Visit Diagnoses Not on filedocumented in this encounter
--- OUTSIDE RECORDS SUMMARY | 2023-12-10 13:07 | XMS_ITS | Encounter Summary ---
Author Name Unknown Organization [facility] Address [address] [place] [address] Care Team Providers Care Brokerage Purchase And Sale Clerk Name Role Phone Unavailable Primary Care Provider Unavailabl e Reason for Referral * Outpatient (Routine) - Closed Specialty Diagnoses / Procedures Referred By Bhavik ledesma Referred To Contact Diagnoses Shortness Of Breath Procedures DX Chest AP or PA and Lateral 2 Views Dimple Verde APRN, C.N.Tila., M.S.N. [address] [place] [address] [facility] Region Referral ID Status Reason Start Date Expiration Date Visits Re quested Visits Authorized [id number] Closed 02/02/2023 02/02/2024 1 1 Reason for Visit * Outpatient (Routine) - Closed Specialty Diagnoses / Procedures Referred By Bhavik ledesma Referred To Contact Diagnoses Shortness Of Breath Procedures DX Chest AP or PA and Lateral 2 Views Dimple Verde APRN, Francisco Javier.N.P., M.S.N. [address] [place] [phone] [facility] Region Referral ID Status Reason Start Date Expiration Date Visits Re quested Visits Authorized [id number] Closed 02/02/2023 02/02/2024 1 1 Encounter Details Date Type Department Care Team (Latest Contact Info) Description 02/02/2023 3:38 PM CDT - 02/02/2023 11:59 PM CDT Hospital Encounter Department of Radiology, [facility], in [place], [place] [address] [place] [phone] Dimple Verde APRN, C.N.P., M.S.N. [address] [place] [address] Shortness Of Breath Discharge Disposition: Home or [...]
--- OUTSIDE RECORDS SUMMARY | 2023-12-10 13:07 | XMS_ITS | Encounter Summary ---
Author Name Unknown Organization [facility] Address [address] [place] [address] Care Team Providers Care Statistical Technician Name Role Phone Unavailable Primary Care Provider Unavailabl e Reason for Visit * Reason Comments Med Refill Encounter Details Date Type Department Care Team (Late st Contact Info) Description 05/04/2023 Refill Division of Nephrology and Hypertension in [place], [place] [address] [place] [phone] Vince Chopra Jr., D.O. [address] [place] [address] Med Refill Social History Tobacco Use Types [...]
--- OUTSIDE RECORDS SUMMARY | 2023-12-10 13:08 | XMS_ITS | Encounter Summary ---
Author Name Unknown Organization [facility] Address [address] [place] [address] Care Team Providers Care Engineering Documentation Specialist Name Role Phone Unavailable Primary Care Provider Unavailabl e Reason for Visit * Reason Onset Date Comments Fluid retention in legs and feet x 1+ week 01/19 Encounter Details Date Type Department Care Team (Latest Contact Info) Description 01/19/2023 Clinical Communication Division of Nephrology and Hypertension in [place], [place] [address] [place] [address] Vince Chopra Jr., D.O. [address] [place] [address] Fluid retention in legs and feet x [...] Notes * Telephone Encounter - Gracia Craig Louias - 01/19/2023 7:13 AM CST Caller is: patient Preferred Communication Method: [phone] (mobile) Reason for call: Dr. Chopra started [...] please call Rx for water [facility] to [facility] in [place], [place]. Thanks. P WORK PROGRAM DIRECTOR documented in this encounter Plan of Treatment Not on file documented as of this encounter Visit Diagnoses Not on filedocumented in this encounter
== END 2023-12-10 13:05 | disposition home or self-care (01) ==
LOC: WOUND 13:05
PROVIDERS: PCP Family Medicine; Visit Provider Nurse Practitioner Family
DX: E11.621 Type 2 diabetes mellitus with foot ulcer (principal); L97.512 Non-pressure chronic ulcer of other part of right foot with fat layer exposed; L97.522 Non-pressure chronic ulcer of other part of left foot with fat layer exposed; Z79.4 Long term (current) use of insulin; Z79.84 Long term (current) use of oral hypoglycemic drugs
CPT/HCPCS: 97597

== ENCOUNTER 2023-12-17 13:06 | Outpatient (CLI) | payer OTHER, SELFPAY ==
--- OUTSIDE RECORDS SUMMARY | 2023-12-17 13:24 | XMS_ITS | Clinical Summary ---
Author Name Unknown Organization [facility] Address [place], [place] [address] Care Team Providers Care Candy Wrapping Machine Operator Name Role Phone Gunner Carrasco MD Primary Care Provider [phone] Allergies Active Allergy Reactions Criticality Noted Date [...] Comments Blood Pressure 150/77 10/21/2022 3:19 PM PROJECT SPECIALIST Pulse 67 10/21/2022 3:19 PM PROJECT SPECIALIST Temperature - - Respiratory Rate - - Oxygen Saturation 96% 10/21/2022 3:19 PM PROJECT SPECIALIST Inhaled Oxygen Concentration - - Weight 140.2 [...] age to complete this topic Care Teams Candy Wrapping Machine Operator Relationship Specialty Start Date End Date Gunner Carrasco MD [address] [place] [address] PCP - General Family Practice 07/08/22
--- OUTSIDE RECORDS SUMMARY | 2023-12-17 13:25 | XMS_ITS | Encounter Summary ---
Author Name Unknown Organization [facility] Address [address] [place] [address] Care Team Providers Care Palm Gatherer Name Role Phone Unavailable Primary Care Provider Unavailabl e Reason for Referral * Medication Prior Authorization - Authorized Specialty Diagnoses / Procedures Referred By Bhavik ledesma Referred To Contact Vince Chopra Jr., D.OGloria [address] [place] [address] Referral ID Status Reason Start Date Expiration Date V isits Requested Visits Authorized [id number] Authorized 11/23/2023 11/22/2024 1 1 Reason for Visit * Appointment Request (Routine) - Closed Specialty Diagnoses / Procedures Referred By Bhavik ledesma Referred To Contact Nephrology and Hypertension Referral ID Status Reason Start Date Expiration Date Visits Re quested Visits Authorized [id number] Closed 05/01/2023 04/30/2024 1 1 Encounter Details Date Type Department Care Team (Latest Contact Info) Description 06/02/2023 3:30 PM CDT External Outreach Division of Nephrology and Hypertension in [place], [place] [address] [place] [address] Vince Chopra Jr., D.O. [address] [place] [phone] Chronic Kidney Disease (CKD), Stage 3b Glomerular Filtration Rate (GFR) 30 To 44 (HCC) (Primary Dx); Hypertensive Chronic Kidney Disease (CKD) Stage 3b Glomerular Filtration Rate (GFR) 30 To 44 (HCC); Diabetes Mellitus Type 2 (HCC); Anemia Of Chronic Renal Failure; Hyperparathyroidism Renal Secondary ([facility]) Social History Tobacco Use Types Packs/Day [...] provider on file. SUBJECTIVE REASON FOR VISIT [place] out reach CKD Clinic Follow-up regards medically [...] Extremities: No cyanosis, No clubbing: Massive nonpitting [place] indurated lower extremity swelling Neuro: Cranial Nerves [...]
--- OUTSIDE RECORDS SUMMARY | 2023-12-17 13:25 | XMS_ITS | Encounter Summary ---
Author Name Unknown Organization [facility] Address [address] [place] [address] Care Team Providers Care Strand And Binder Controller Name Role Phone Unavailable Primary Care Provider Unavailabl e Reason for Referral * Outpatient (Routine) - Closed Specialty Diagnoses / Procedures Referred By Bhavik ledesma Referred To Contact Diagnoses Shortness Of Breath Procedures DX Chest AP or PA and Lateral 2 Views Dimple Verde APRN, C.N.Tila., M.S.N. [address] [place] [address] [facility] Region Referral ID Status Reason Start Date Expiration Date Visits Re quested Visits Authorized [id number] Closed 02/02/2023 02/02/2024 1 1 Reason for Visit * Outpatient (Routine) - Closed Specialty Diagnoses / Procedures Referred By Bhavik ledesma Referred To Contact Diagnoses Shortness Of Breath Procedures DX Chest AP or PA and Lateral 2 Views Dimple Verde APRN, Francisco Javier.N.P., M.S.N. [address] [place] [phone] [facility] Region Referral ID Status Reason Start Date Expiration Date Visits Re quested Visits Authorized [id number] Closed 02/02/2023 02/02/2024 1 1 Encounter Details Date Type Department Care Team (Latest Contact Info) Description 02/02/2023 3:38 PM CDT - 02/02/2023 11:59 PM CDT Hospital Encounter Department of Radiology, [facility], in [place], [place] [address] [place] [phone] Dimple Verde APRN, C.N.P., M.S.N. [address] [place] [address] Shortness Of Breath Discharge Disposition: Home or [...]
--- OUTSIDE RECORDS SUMMARY | 2023-12-17 13:25 | XMS_ITS | Encounter Summary ---
Author Name Unknown Organization [facility] Address [address] [place] [address] Care Team Providers Care Condenser Tube Tender Name Role Phone Unavailable Primary Care Provider Unavailabl e Reason for Visit * Reason Comments Med Refill Encounter Details Date Type Department Care Team (Late st Contact Info) Description 05/04/2023 Refill Division of Nephrology and Hypertension in [place], [place] [address] [place] [phone] Vince Chopra Jr., D.O. [address] [place] [address] Med Refill Social History Tobacco Use Types [...]
--- OUTSIDE RECORDS SUMMARY | 2023-12-17 13:25 | XMS_ITS | Encounter Summary ---
Author Name Unknown Organization [facility] Address [address] [place] [address] Care Team Providers Care Day Camp Counselor Name Role Phone Unavailable Primary Care Provider Unavailabl e Reason for Referral * Outpatient (Routine) - Closed Specialty Diagnoses / Procedures Referred By Bhavik t Referred To Contact Diagnoses Shortness Of Breath Procedures DX Chest AP or PA and Lateral 2 Views Dimple Verde APRN, C.N.P., M.S.N. [address] [place] [address] [facility] Region Referral ID Status Reason Start Date Expiration Date Visits Re quested Visits Authorized [id number] Closed 02/02/2023 02/02/2024 1 1 Reason for Visit * Reason Comments Cough X 3 wks Wheezing Encounter Details Date Type Department Care Team ([facility] st Contact Info) Description 02/02/2023 3:00 PM CDT Office Visit Urgent Care, [facility], in [place], [place] [address] [place] [phone] Dimple Verde APRN, C.N.P., M.S.N. [address] [place] [phone] Shortness Of Breath (Primary Dx); Cough Unspecified [...] Body Mass Index 48.73 12/02/2022 3:33 PM [facility] documented in this encounter Progress Notes * [...] few days. He states he goes to [facility] here in town so his records [...] kg since he was last seen at [place] in November. He is taking Torsemide 20 mg daily. He will monitor this closer and start checking his weights in the mornings which he has not been doing. He has a follow up with his primary care provider at [facility] in a few days. In the [...]
--- OUTSIDE RECORDS SUMMARY | 2023-12-17 13:25 | XMS_ITS ---
Author Name Unknown Organization [facility] Address [address] [place] [address] Care Team Providers Care Sales Office Manager Name Role Phone Unavailable Unavailable Unavailable Surgery Details Not on file Complications Check Surgery Details section. Procedure Estimated Blood Loss Check Surgery Details section. Procedure Findings Check Surgery Details section. Procedure Specimens Taken Check Surgery Details section.
--- OUTSIDE RECORDS SUMMARY | 2023-12-17 13:25 | XMS_ITS | Encounter Summary ---
Author Name Unknown Organization [facility] Address [address] [place] [address] Care Team Providers Care Pharmacy Customer Care Specialist Name Role Phone Unavailable Primary Care Provider Unavailabl e Reason for Visit * Appointment Request (Routine) - Closed Specialty Diagnoses / Procedures Referred By Bhavik ledesma Referred To Contact Nephrology and Hypertension Referral ID Status Reason Start Date Expiration Date Visits Re quested Visits Authorized [id number] Closed 07/16/2023 07/15/2024 1 1 Encounter Details Date Type Department Care Team (Latest Contact Info) Description 08/31/2023 3:00 PM CDT External Outreach Division of Nephrology and Hypertension in [place], [place] [address] [place] [phone] Vince Chopra Jr., D.O. [address] [place] [phone] Chronic Kidney Disease (CKD), Stage 3b Glomerular [...] provider on file. SUBJECTIVE REASON FOR VISIT [place] out reach CKD Clinic Follow-up regards hypertension, [...] disturbing. #3 Diabetes Mellitus Type 2 ([facility]) Excellent glycemic control I congratulated him. #4 Hyperparathyroidism Renal Secondary (HCC) Calcium phosphorus PTH levels are excellent #5 Body Mass Index 40.0 To 44.9 Adult ([facility]) He is doing quite well from this [...] Mass Index 40.0 To 44.9 Adult ([facility]) documented in this encounter
--- OUTSIDE RECORDS SUMMARY | 2023-12-17 13:25 | XMS_ITS | Clinical Summary ---
Author Name Unknown Organization [facility] Address [address] [place] [address] Care Team Providers Care Chairlift Operator Name Role Phone Unavailable Primary Care Provider Unavailabl e Source Comments Patient records contain information from all sites at [facility]. For routine questions regarding patient records, call [phone] during business hours, M-F 8:00 AM - 5:00 PM Central Time. Record requests for emergency care only can be directed to [phone] at any time.[facility] Allergies Active Allergy Reactions Criticality Noted Date [...] 10/28/2023 Clinical Communication Pharmacy Prior Auth RO [phone] Lizandro Martell RX APPROVAL (OZEMPIC 0.25MG) 09/29/2023 10:30 AM CONSTRUCTION PROJECT MGR External Outreach Division of Nephrology and Hypertension in [place], [place] [address] [place] [address] Vince Chopra Jr., D.O. Chronic Kidney Disease [...] Comments Blood Pressure 124/68 09/29/2023 10:36 AM CONSTRUCTION PROJECT MGR Pulse 88 09/29/2023 10:36 AM CONSTRUCTION PROJECT MGR Temperature 37 ??C (98.6 ??F) 02/02/2023 3:03 PM CDT Respiratory Rate 18 04/28/2014 10:16 PM CDT Oxygen Saturation 96% 02/02/2023 3:03 PM CDT Inhaled Oxygen Concentration - - Weight 132 kg (290 lb 12.6 oz) 09/29/2023 10:36 AM CONSTRUCTION PROJECT MGR Height 170 cm (5' 6.93) 09/29/2023 10:36 AM CONSTRUCTION PROJECT MGR Body Mass Index 45.64 09/29/2023 10:36 AM CONSTRUCTION PROJECT MGR Plan of Treatment Health Maintenance Due Date [...]
--- OUTSIDE RECORDS SUMMARY | 2023-12-17 13:25 | XMS_ITS | Encounter Summary ---
Author Name Unknown Organization [facility] Address [address] [place] [address] Care Team Providers Care Oracle Fusion Consultant Name Role Phone Unavailable Primary Care Provider Unavailabl e Reason for Visit * Appointment Request (Routine) - Closed Specialty Diagnoses / Procedures Referred By Bhavik ledesma Referred To Contact Nephrology and Hypertension Referral ID Status Reason Start Date Expiration Date Visits Re quested Visits Authorized [id number] Closed 09/11/2023 09/10/2024 1 1 Encounter Details Date Type Department Care Team (Latest Contact Info) Description 09/29/2023 10:30 AM HIGH FREQUENCY MILL OPERATOR External Outreach Division of Nephrology and Hypertension in [place], [place] [address] [place] [address] Vince Chopra Jr., D.O. [address] [place] [phone] Chronic Kidney Disease (CKD), Stage 3b Glomerular [...] Comments Blood Pressure 124/68 09/29/2023 10:36 AM HIGH FREQUENCY MILL OPERATOR Pulse 88 09/29/2023 10:36 AM HIGH FREQUENCY MILL OPERATOR Temperature - - Respiratory Rate - - Oxygen Saturation - - Inhaled Oxygen Concentration - - Weight 132 kg (290 lb 12.6 oz) 09/29/2023 10:36 AM HIGH FREQUENCY MILL OPERATOR Height 170 cm (5' 6.93) 09/29/2023 10:36 AM HIGH FREQUENCY MILL OPERATOR Body Mass Index 45.64 09/29/2023 10:36 AM HIGH FREQUENCY MILL OPERATOR documented in this encounter Progress Notes * Vince Chopra Jr., D.O. - 09/29/2023 10:30 AM CST Referring Provider: No primary care provider on file. SUBJECTIVE REASON FOR VISIT [place] out reach CKD Clinic Follow-up regards diabetes [...] Glomerular Filtration Rate (GFR) 30 To 44 ([facility]) His CKD has subtly worsened over time [...] Time: 25 minutes Vince Chopra Jr., D.O. FREQUENCY MILL OPERATOR documented in this encounter Plan of Treatment [...]
--- OUTSIDE RECORDS SUMMARY | 2023-12-17 13:25 | XMS_ITS | Encounter Summary ---
Author Name Unknown Organization [facility] Address [address] [place] [address] Care Team Providers Care Park Worker Name Role Phone Unavailable Primary Care Provider Unavailabl e Encounter Details Date Type Department Care Team (Late st Contact Info) Description 01/19/2023 Orders Only Division of Nephrology and Hypertension in [place], [place] [address] [place] [phone] Vince Chopra Jr., D.O. [address] [place] [phone] Social History Tobacco Use Types Packs/Day Years [...]
--- OUTSIDE RECORDS SUMMARY | 2023-12-17 13:25 | XMS_ITS | Encounter Summary ---
Author Name Unknown Organization [facility] Address [address] [place] [address] Care Team Providers Care Nursing Staffing Coordinator Name Role Phone Unavailable Primary Care Provider Unavailabl e Reason for Visit * Reason Onset Date Comments Fluid retention in legs and feet x 1+ week 01/19 Encounter Details Date Type Department Care Team (Latest Contact Info) Description 01/19/2023 Clinical Communication Division of Nephrology and Hypertension in [place], [place] [address] [place] [address] Vince Chopra Jr., D.O. [address] [place] [address] Fluid retention in legs and feet x [...] CST Caller is: patient Preferred Communication Method: [phone] (mobile) Reason for call: Dr. Chopra started [...] please call Rx for water pill to [facility] in [place], [place]. Thanks. ECTION ENGINEER documented in this encounter Plan of Treatment Not on file documented as of this encounter Visit Diagnoses Not on filedocumented in this encounter
--- OUTSIDE RECORDS SUMMARY | 2023-12-17 13:25 | XMS_ITS | Encounter Summary ---
Author Name Unknown Organization [facility] Address [address] [place] [address] Care Team Providers Care Drying Frame Operator Name Role Phone Unavailable Primary Care Provider Unavailabl e Reason for Visit * Reason Onset Date Comments reaction to amlodipine 01/19/2023 Encounter Details Date Type Department Care Team (Latest Contact Info) Description 01/19/2023 Clinical Communication Division of Nephrology and Hypertension in [place], [place] [address] [place] [phone] Vince Chopra Jr., D.O. [address] [place] [phone] reaction to amlodipine Social History Tobacco Use [...] CST Caller is: patient Preferred Communication Method: [phone] (mobile) Reason for call: Patient said that [...] get the swelling down. He utilizes the [facility] pharmacy in [place]. Please call patient. Thanks OR ESTABLISHMENT MANAGER documented in this encounter Plan of Treatment Not on file documented as of this encounter Visit Diagnoses Not on filedocumented in this encounter
--- OUTSIDE RECORDS SUMMARY | 2023-12-17 13:25 | XMS_ITS | Referral Summary ---
Author Name Unknown Organization [facility] Address [address] [place] [address] Care Team Providers Care Banquet Set Up Person Name Role Phone Unavailable Primary Care Provider Unavailabl e Source Comments Patient records contain information from all sites at [facility]. For routine questions regarding patient records, call [phone] during business hours, M-F 8:00 AM - 5:00 PM Central Time. Record requests for emergency care only can be directed to [phone] at any time.[facility] Encounters Date Type Department Care Team Description 10/28/2023 Clinical Communication Pharmacy Prior Auth [phone] Lizandro Martell RX APPROVAL (OZEMPIC 0.25MG) 09/29/2023 10:30 AM FOUNDATION STAGE TEACHER External Outreach Division of Nephrology and Hypertension in [place], [place] [address] [place] [address] Vince Chopra Jr., D.O. Chronic Kidney Disease (CKD), Stage 3b Glomerular Filtration Rate (GFR) 30 To 44 (HCC) (Primary Dx); Hypertensive Chronic Kidney Disease (CKD) Stage 3b Glomerular Filtration Rate (GFR) 30 To 44 (HCC); Diabetes Mellitus Type 2 (HCC); Anemia Of Chronic Renal Failure; Hyperparathyroidis m Renal Secondary ([facility]); Body Mass Index 40.0 To 44.9 Adult ([facility]) from Last 3 Months Allergies Active Allergy [...] Comments Blood Pressure 124/68 09/29/2023 10:36 AM FOUNDATION STAGE TEACHER Pulse 88 09/29/2023 10:36 AM FOUNDATION STAGE TEACHER Temperature 37 ??C (98.6 ??F) 02/02/2023 3:03 PM CDT Respiratory Rate 18 04/28/2014 10:16 PM CDT Oxygen Saturation 96% 02/02/2023 3:03 PM CDT Inhaled Oxygen Concentration - - Weight 132 kg (290 lb 12.6 oz) 09/29/2023 10:36 AM FOUNDATION STAGE TEACHER Height 170 cm (5' 6.93) 09/29/2023 10:36 AM FOUNDATION STAGE TEACHER Body Mass Index 45.64 09/29/2023 10:36 AM FOUNDATION STAGE TEACHER Plan of Treatment Not on file
--- OUTSIDE RECORDS SUMMARY | 2023-12-17 13:25 | XMS_ITS | Encounter Summary ---
Author Name Unknown Organization [facility] Address [address] [place] [address] Care Team Providers Care Gerontology Aide Name Role Phone Unavailable Primary Care Provider Unavailabl e Encounter Details Date Type Department Care Team (Late st Contact Info) Description 01/19/2023 Clinical Communication Division of Nephrology and Hypertension in [place], [place] [address] [place] [address] Vince Chopra Jr., Josefa.O. [address] [place] [address] Social History Tobacco Use Types Packs/Day Years [...] Chopra Jr., D.O. - 01/19/2023 1:30 PM CLASSIFICATION COUNSELOR Phone note: He phone today to let [...] let me know how things are going. SIFICATION COUNSELOR documented in this encounter Plan of Treatment Not on file documented as of this encounter Visit Diagnoses Not on filedocumented in this encounter
--- OUTSIDE RECORDS SUMMARY | 2023-12-17 13:25 | XMS_ITS | Encounter Summary ---
Author Name Unknown Organization [facility] Address [address] [place] [address] Care Team Providers Care Certified Respiratory Therapist Name Role Phone Unavailable Primary Care Provider Unavailabl e Reason for Visit * Reason Onset Date Comments RX APPROVAL 10/28/2023 OZEMPIC 0.25MG Encounter Details Date Type Department Care Team (Latest Contact Info) Description 10/28/2023 Clinical Communication Pharmacy Prior Auth RO [phone] Lizandro Martell RX APPROVAL (OZEMPIC 0.25MG) Social [...] have any follow-up questions, please send an Chemo Bean[employer] in Unocoin message to P [facility] POOL. TING MACHINE OPERATOR documented in this encounter Plan of Treatment Not on file documented as of this encounter Visit Diagnoses Not on filedocumented in this encounter
== END 2023-12-17 13:07 | disposition home or self-care (01) ==
LOC: WOUND 13:06
PROVIDERS: PCP Family Medicine; Visit Provider Nurse Practitioner Family
DX: E11.621 Type 2 diabetes mellitus with foot ulcer (principal); L97.522 Non-pressure chronic ulcer of other part of left foot with fat layer exposed; L97.518 Non-pressure chronic ulcer of other part of right foot with other specified severity; Z79.4 Long term (current) use of insulin; Z79.84 Long term (current) use of oral hypoglycemic drugs
CPT/HCPCS: 97597

== ENCOUNTER 2023-12-24 12:50 | Outpatient (CLI) | payer OTHER, SELFPAY ==
--- OUTSIDE RECORDS SUMMARY | 2023-12-24 12:52 | XMS_ITS | Clinical Summary ---
Author Name Unknown Organization [facility] Address [place], [place] [address] Care Team Providers Care Tumbling And Rolling Supervisor Name Role Phone Gunner Carrasco MD Primary Care Provider [phone] Allergies Active Allergy Reactions Criticality Noted Date [...] Comments Blood Pressure 150/77 10/21/2022 3:19 PM MOUNTAIN SERVICES MANAGER Pulse 67 10/21/2022 3:19 PM MOUNTAIN SERVICES MANAGER Temperature - - Respiratory Rate - - Oxygen Saturation 96% 10/21/2022 3:19 PM MOUNTAIN SERVICES MANAGER Inhaled Oxygen Concentration - - Weight [...] age to complete this topic Care Teams Tumbling And Rolling Supervisor Relationship Specialty Start Date End Date Gunner Carrasco MD [address] [place] [address] PCP - General Family Practice 07/08/22
--- OUTSIDE RECORDS SUMMARY | 2023-12-24 12:53 | XMS_ITS | Encounter Summary ---
Author Name Unknown Organization [facility] Address [address] [place] [address] Care Team Providers Care Supervisor Painting Name Role Phone Unavailable Primary Care Provider Unavailabl e Reason for Referral * Medication Prior Authorization - Authorized Specialty Diagnoses / Procedures Referred By Bhavik ledesma Referred To Contact Vince Chopra Jr., D.OGloria [address] [place] [address] Referral ID Status Reason Start Date Expiration Date V isits Requested Visits Authorized [id number] Authorized 11/23/2023 11/22/2024 1 1 Reason for Visit * Appointment Request (Routine) - Closed Specialty Diagnoses / Procedures Referred By Bhavik ledesma Referred To Contact Nephrology and Hypertension Referral ID Status Reason Start Date Expiration Date Visits Re quested Visits Authorized [id number] Closed 05/01/2023 04/30/2024 1 1 Encounter Details Date Type Department Care Team (Latest Contact Info) Description 06/02/2023 3:30 PM CDT External Outreach Division of Nephrology and Hypertension in [place], [place] [address] [place] [address] Vince Chopra Jr., D.O. [address] [place] [phone] Chronic Kidney Disease (CKD), Stage 3b Glomerular Filtration Rate (GFR) 30 To 44 (HCC) (Primary Dx); Hypertensive Chronic Kidney Disease (CKD) Stage 3b Glomerular Filtration Rate (GFR) 30 To 44 (HCC); Diabetes Mellitus Type 2 (HCC); Anemia Of Chronic Renal Failure; Hyperparathyroidism Renal Secondary ([facility]) Social History Tobacco Use Types Packs/Day [...] provider on file. SUBJECTIVE REASON FOR VISIT [place] out reach CKD Clinic Follow-up regards medically [...] Extremities: No cyanosis, No clubbing: Massive nonpitting [place] indurated lower extremity swelling Neuro: Cranial Nerves [...]
--- OUTSIDE RECORDS SUMMARY | 2023-12-24 12:53 | XMS_ITS | Encounter Summary ---
Author Name Unknown Organization [facility] Address [address] [place] [address] Care Team Providers Care Director Of Design Name Role Phone Unavailable Primary Care Provider Unavailabl e Encounter Details Date Type Department Care Team (Late st Contact Info) Description 01/19/2023 Orders Only Division of Nephrology and Hypertension in [place], [place] [address] [place] [phone] Vince Chopra Jr., D.O. [address] [place] [phone] Social History Tobacco Use Types Packs/Day Years [...]
--- OUTSIDE RECORDS SUMMARY | 2023-12-24 12:53 | XMS_ITS | Encounter Summary ---
Author Name Unknown Organization [facility] Address [address] [place] [address] Care Team Providers Care Staff Radiographer Name Role Phone Unavailable Primary Care Provider Unavailabl e Reason for Visit * Appointment Request (Routine) - Closed Specialty Diagnoses / Procedures Referred By Bhavik ledesma Referred To Contact Nephrology and Hypertension Referral ID Status Reason Start Date Expiration Date Visits Re quested Visits Authorized [id number] Closed 09/11/2023 09/10/2024 1 1 Encounter Details Date Type Department Care Team (Latest Contact Info) Description 09/29/2023 10:30 AM MANAGER PLUMBING External Outreach Division of Nephrology and Hypertension in [place], [place] [address] [place] [address] Vince Chopra Jr., D.O. [address] [place] [phone] Chronic Kidney Disease (CKD), Stage 3b Glomerular [...] Comments Blood Pressure 124/68 09/29/2023 10:36 AM MANAGER PLUMBING Pulse 88 09/29/2023 10:36 AM MANAGER PLUMBING Temperature - - Respiratory Rate - - Oxygen Saturation - - Inhaled Oxygen Concentration - - Weight 132 kg (290 lb 12.6 oz) 09/29/2023 10:36 AM MANAGER PLUMBING Height 170 cm (5' 6.93) 09/29/2023 10:36 AM MANAGER PLUMBING Body Mass Index 45.64 09/29/2023 10:36 AM MANAGER PLUMBING documented in this encounter Progress Notes * Vince Chopra Jr., D.O. - 09/29/2023 10:30 AM CST Referring Provider: No primary care provider on file. SUBJECTIVE REASON FOR VISIT [place] out reach CKD Clinic Follow-up regards diabetes [...] Rate (GFR) 30 To 44 ([facility]) His CKD has subtly worsened over time [...] Time: 25 minutes Vince Chopra Jr., D.O. GER PLUMBING documented in this encounter Plan of Treatment [...]
--- OUTSIDE RECORDS SUMMARY | 2023-12-24 12:53 | XMS_ITS | Encounter Summary ---
Author Name Unknown Organization [facility] Address [address] [place] [address] Care Team Providers Care Client Evaluator Name Role Phone Unavailable Primary Care Provider Unavailabl e Reason for Visit * Reason Comments Med Refill Encounter Details Date Type Department Care Team (Late st Contact Info) Description 12/24/2023 Refill Division of Nephrology and Hypertension in [place], [place] [address] [place] [phone] Vince Chopra Jr., D.O. [address] [place] [address] Med Refill Social History Tobacco Use Types [...]
--- OUTSIDE RECORDS SUMMARY | 2023-12-24 12:53 | XMS_ITS | Referral Summary ---
Author Name Unknown Organization [facility] Address [address] [place] [address] Care Team Providers Care Allied Health Teacher Name Role Phone Unavailable Primary Care Provider Unavailabl e Source Comments Patient records contain information from all sites at [facility]. For routine questions regarding patient records, call [phone] during business hours, M-F 8:00 AM - 5:00 PM Central Time. Record requests for emergency care only can be directed to [phone] at any time.[facility] Encounters Date Type Department Care Team Description 12/24/2023 Refill Division of Nephrology and Hypertension in [place], [place] [address] [place] [address] Vince Chopra Jr., D.O. Med Refill 10/28/2023 Clinical Communication Pharmacy Prior Auth [phone] Lizandro Martell RX APPROVAL (OZEMPIC 0.25MG) 09/29/2023 10:30 AM SUPERVISOR MOLDING External Outreach Division of Nephrology and Hypertension in [place], [place] [address] [place] [address] Vince Chopra Jr., D.O. Chronic Kidney Disease (CKD), Stage 3b Glomerular Filtration Rate (GFR) 30 To 44 (HCC) (Primary Dx); Hypertensive Chronic Kidney Disease (CKD) Stage 3b Glomerular Filtration Rate (GFR) 30 To 44 (HCC); Diabetes Mellitus Type 2 (HCC); Anemia Of Chronic Renal Failure; Hyperparathyroidis m Renal Secondary (HCC); Body Mass Index 40.0 To 44.9 Adult ([facility]) from Last 3 Months Allergies Active [...] Comments Blood Pressure 124/68 09/29/2023 10:36 AM SUPERVISOR MOLDING Pulse 88 09/29/2023 10:36 AM SUPERVISOR MOLDING Temperature 37 ??C (98.6 ??F) 02/02/2023 3:03 PM CDT Respiratory Rate 18 04/28/2014 10:16 PM CDT Oxygen Saturation 96% 02/02/2023 3:03 PM CDT Inhaled Oxygen Concentration - - Weight 132 kg (290 lb 12.6 oz) 09/29/2023 10:36 AM SUPERVISOR MOLDING Height 170 cm (5' 6.93) 09/29/2023 10:36 AM SUPERVISOR MOLDING Body Mass Index 45.64 09/29/2023 10:36 AM SUPERVISOR MOLDING Plan of Treatment Not on file
--- OUTSIDE RECORDS SUMMARY | 2023-12-24 12:53 | XMS_ITS ---
Author Name Unknown Organization [facility] Address [address] [place] [address] Care Team Providers Care Motel Maid Name Role Phone Unavailable Unavailable Unavailable Surgery Details Not on file Complications Check Surgery Details section. Procedure Estimated Blood Loss Check Surgery Details section. Procedure Findings Check Surgery Details section. Procedure Specimens Taken Check Surgery Details section.
--- OUTSIDE RECORDS SUMMARY | 2023-12-24 12:53 | XMS_ITS | Clinical Summary ---
Author Name Unknown Organization [facility] Address [address] [place] [address] Care Team Providers Care Senior Research Manager Name Role Phone Unavailable Primary Care Provider Unavailabl e Source Comments Patient records contain information from all sites at [facility]. For routine questions regarding patient records, call [phone] during business hours, M-F 8:00 AM - 5:00 PM Central Time. Record requests for emergency care only can be directed to [phone] at any time.[facility] Allergies Active Allergy Reactions Criticality Noted [...] Refill Division of Nephrology and Hypertension in [place], [place] [address] [place] [address] Vince Chopra Jr., D.O. Med Refill 10/28/2023 Clinical Communication Pharmacy Prior Auth RO [phone] Lizandro Martell RX APPROVAL (OZEMPIC 0.25MG) 09/29/2023 10:30 AM FOUNDATION DIRECTOR External Outreach Division of Nephrology and Hypertension in [place], [place] [address] [place] [address] Vince Chopra Jr., D.O. Chronic Kidney Disease [...] Blood Pressure 124/68 09/29/2023 10:36 AM FOUNDATION DIRECTOR Pulse 88 09/29/2023 10:36 AM FOUNDATION DIRECTOR Temperature 37 ??C (98.6 ??F) 02/02/2023 3:03 PM CDT Respiratory Rate 18 04/28/2014 10:16 PM CDT Oxygen Saturation 96% 02/02/2023 3:03 PM CDT Inhaled Oxygen Concentration - - Weight 132 kg (290 lb 12.6 oz) 09/29/2023 10:36 AM FOUNDATION DIRECTOR Height 170 cm (5' 6.93) 09/29/2023 10:36 AM FOUNDATION DIRECTOR Body Mass Index 45.64 09/29/2023 10:36 AM FOUNDATION DIRECTOR Plan of Treatment Health Maintenance Due Date [...] 2 - PCV) 08/08/2015 08/08/2014 COVID-19 Vaccine (6 - 2022-2 4 season) 2023 08/10/2022, 02/19/2022, [...]
--- OUTSIDE RECORDS SUMMARY | 2023-12-24 12:53 | XMS_ITS | Encounter Summary ---
Author Name Unknown Organization [facility] Address [address] [place] [address] Care Team Providers Care Contract Programmer Name Role Phone Unavailable Primary Care Provider Unavailabl e Reason for Visit * Reason Onset Date Comments RX APPROVAL 10/28/2023 OZEMPIC 0.25MG Encounter Details Date Type Department Care Team (Latest Contact Info) Description 10/28/2023 Clinical Communication Pharmacy Prior Auth RO [phone] Lizandro Martell RX APPROVAL (OZEMPIC 0.25MG) Social [...] have any follow-up questions, please send an [employer] in ExpertBeacon message to P [facility] POOL. RING MACHINE OPERATOR documented in this encounter Plan of Treatment Not on file documented as of this encounter Visit Diagnoses Not on filedocumented in this encounter
--- OUTSIDE RECORDS SUMMARY | 2023-12-24 12:53 | XMS_ITS | Encounter Summary ---
Author Name Unknown Organization [facility] Address [address] [place] [address] Care Team Providers Care Scroll Saw Operator Name Role Phone Unavailable Primary Care Provider Unavailabl e Reason for Referral * Outpatient (Routine) - Closed Specialty Diagnoses / Procedures Referred By Bhavik t Referred To Contact Diagnoses Shortness Of Breath Procedures DX Chest AP or PA and Lateral 2 Views Dimple Verde APRN, C.N.P., M.S.N. [address] [place] [address] [facility] Region Referral ID Status Reason Start Date Expiration Date Visits Re quested Visits Authorized [id number] Closed 02/02/2023 02/02/2024 1 1 Reason for Visit * Reason Comments Cough X 3 wks Wheezing Encounter Details Date Type Department Care Team ([facility] st Contact Info) Description 02/02/2023 3:00 PM CDT Office Visit Urgent Care, [facility], in [place], [place] [address] [place] [phone] Dimple Verde APRN, C.N.P., M.S.N. [address] [place] [phone] Shortness Of Breath (Primary Dx); Cough Unspecified [...] Body Mass Index 48.73 12/02/2022 3:33 PM VICE CHAIR documented in this encounter Progress Notes * [...] few days. He states he goes to [facility] here in town so his records are [...] kg since he was last seen at [facility] in November. He is taking Torsemide 20 mg daily. He will monitor this closer and start checking his weights in the mornings which he has not been doing. He has a follow up with his primary care provider at [facility] in a few days. In the meantime [...] changes. IMPRESSION: No acute airspace disease. Dimple Vered APRN C.N.P., M.S.N. IMG D IAGNOSTIC IMAGING PROCEDURES documented in this encounter Visit Diagnoses Diagnosis Shortness Of Breath- Primary Cough Unspecified Type Chronic Kidney Disease (CKD), Stage 3b Glomerular Filtration Rate (GFR) 30 To 44 (HCC) Shortness Of Breath documented in this encounter
--- OUTSIDE RECORDS SUMMARY | 2023-12-24 12:53 | XMS_ITS | Encounter Summary ---
Author Name Unknown Organization [facility] Address [address] [place] [address] Care Team Providers Care Cable Television Program Director Name Role Phone Unavailable Primary Care Provider Unavailabl e Reason for Referral * Outpatient (Routine) - Closed Specialty Diagnoses / Procedures Referred By Bhavik ledesma Referred To Contact Diagnoses Shortness Of Breath Procedures DX Chest AP or PA and Lateral 2 Views Dimple Verde APRN, C.N.Tila., M.S.N. [address] [place] [address] [facility] Region Referral ID Status Reason Start Date Expiration Date Visits Re quested Visits Authorized [id number] Closed 02/02/2023 02/02/2024 1 1 Reason for Visit * Outpatient (Routine) - Closed Specialty Diagnoses / Procedures Referred By Bhavik ledesma Referred To Contact Diagnoses Shortness Of Breath Procedures DX Chest AP or PA and Lateral 2 Views Dimple Verde APRN, Francisco Javier.N.P., M.S.N. [address] [place] [phone] [facility] Region Referral ID Status Reason Start Date Expiration Date Visits Re quested Visits Authorized [id number] Closed 02/02/2023 02/02/2024 1 1 Encounter Details Date Type Department Care Team (Latest Contact Info) Description 02/02/2023 3:38 PM CDT - 02/02/2023 11:59 PM CDT Hospital Encounter Department of Radiology, [facility], in [place], [place] [address] [place] [phone] Dimple Verde APRN, C.N.P., M.S.N. [address] [place] [address] Shortness Of Breath Discharge Disposition: Home or [...]
--- OUTSIDE RECORDS SUMMARY | 2023-12-24 12:53 | XMS_ITS | Encounter Summary ---
Author Name Unknown Organization [facility] Address [address] [place] [address] Care Team Providers Care Inclusion Internship Name Role Phone Unavailable Primary Care Provider Unavailabl e Reason for Visit * Reason Onset Date Comments reaction to amlodipine 01/19/2023 Encounter Details Date Type Department Care Team (Latest Contact Info) Description 01/19/2023 Clinical Communication Division of Nephrology and Hypertension in [place], [place] [address] [place] [phone] Vince Chopra Jr., D.O. [address] [place] [phone] reaction to amlodipine Social History Tobacco Use [...] CST Caller is: patient Preferred Communication Method: [phone] (mobile) Reason for call: Patient said that [...] get the swelling down. He utilizes the [facility] pharmacy in [place]. Please call patient. Thanks CATION TECHNICIAN documented in this encounter Plan of Treatment Not on file documented as of this encounter Visit Diagnoses Not on filedocumented in this encounter
--- OUTSIDE RECORDS SUMMARY | 2023-12-24 12:53 | XMS_ITS | Encounter Summary ---
Author Name Unknown Organization [facility] Address [address] [place] [address] Care Team Providers Care Corrective Therapist Name Role Phone Unavailable Primary Care Provider Unavailabl e Reason for Visit * Appointment Request (Routine) - Closed Specialty Diagnoses / Procedures Referred By Bhavik ledesma Referred To Contact Nephrology and Hypertension Referral ID Status Reason Start Date Expiration Date Visits Re quested Visits Authorized [id number] Closed 07/16/2023 07/15/2024 1 1 Encounter Details Date Type Department Care Team (Latest Contact Info) Description 08/31/2023 3:00 PM CDT External Outreach Division of Nephrology and Hypertension in [place], [place] [address] [place] [address] Vince Chopra Jr., D.O. [address] [place] [phone] Chronic Kidney Disease (CKD), Stage 3b Glomerular [...] provider on file. SUBJECTIVE REASON FOR VISIT [place] out reach CKD Clinic Follow-up regards hypertension, [...] quite disturbing. #3 Diabetes Mellitus Type 2 ([facility]) Excellent glycemic control I congratulated him. #4 Hyperparathyroidism Renal Secondary (HCC) Calcium phosphorus PTH levels are excellent #5 Body Mass Index 40.0 To 44.9 Adult ([facility]) He is doing quite well from this [...] Body Mass Index 40.0 To 44.9 Adult ([facility]) documented in this encounter
--- OUTSIDE RECORDS SUMMARY | 2023-12-24 12:53 | XMS_ITS | Encounter Summary ---
Author Name Unknown Organization [facility] Address [address] [place] [address] Care Team Providers Care Interactive Multimedia Designer Name Role Phone Unavailable Primary Care Provider Unavailabl e Reason for Visit * Reason Onset Date Comments Fluid retention in legs and feet x 1+ week 01/19 Encounter Details Date Type Department Care Team (Latest Contact Info) Description 01/19/2023 Clinical Communication Division of Nephrology and Hypertension in [place], [place] [address] [place] [address] Vince Chopra Jr., D.O. [address] [place] [address] Fluid retention in legs and feet x [...] CST Caller is: patient Preferred Communication Method: [phone] (mobile) Reason for call: Dr. Chopra started [...] please call Rx for water pill to [facility] in [place], [place]. Thanks. RETE FENCE BUILDER documented in this encounter Plan of Treatment Not on file documented as of this encounter Visit Diagnoses Not on filedocumented in this encounter
--- OUTSIDE RECORDS SUMMARY | 2023-12-24 12:53 | XMS_ITS | Encounter Summary ---
Author Name Unknown Organization [facility] Address [address] [place] [address] Care Team Providers Care Fishing Tool Technician Oil Well Name Role Phone Unavailable Primary Care Provider Unavailabl e Encounter Details Date Type Department Care Team (Late st Contact Info) Description 01/19/2023 Clinical Communication Division of Nephrology and Hypertension in [place], [place] [address] [place] [address] Vince Chopra Jr., D.O. [address] [place] [address] Social History Tobacco Use Types Packs/Day Years [...] Chopra Jr., D.O. - 01/19/2023 1:30 PM SUBSURFACE AUGMENTEE OPERATOR Phone note: He phone today to let [...] let me know how things are going. URFACE AUGMENTEE OPERATOR documented in this encounter Plan of Treatment Not on file documented as of this encounter Visit Diagnoses Not on filedocumented in this encounter
--- OUTSIDE RECORDS SUMMARY | 2023-12-24 12:53 | XMS_ITS | Encounter Summary ---
Author Name Unknown Organization [facility] Address [address] [place] [address] Care Team Providers Care Sports Cartoonist Name Role Phone Unavailable Primary Care Provider Unavailabl e Reason for Visit * Reason Comments Med Refill Encounter Details Date Type Department Care Team (Late st Contact Info) Description 05/04/2023 Refill Division of Nephrology and Hypertension in [place], [place] [address] [place] [phone] Vince Chopra Jr., D.O. [address] [place] [address] Med Refill Social History Tobacco Use Types [...]
== END 2023-12-24 12:51 | disposition home or self-care (01) ==
LOC: WOUND 12:50
PROVIDERS: PCP Family Medicine; Visit Provider Nurse Practitioner Family
DX: E11.621 Type 2 diabetes mellitus with foot ulcer (principal); L97.522 Non-pressure chronic ulcer of other part of left foot with fat layer exposed; L97.512 Non-pressure chronic ulcer of other part of right foot with fat layer exposed; I89.0 Lymphedema, not elsewhere classified; Z79.4 Long term (current) use of insulin; Z79.84 Long term (current) use of oral hypoglycemic drugs
CPT/HCPCS: 97597

== ENCOUNTER 2023-12-31 12:48 | Outpatient (CLI) | payer OTHER, SELFPAY ==
--- OUTSIDE RECORDS SUMMARY | 2023-12-31 12:50 | XMS_ITS | Encounter Summary ---
Author Name Unknown Organization [facility] Address [address] [place] [address] Care Team Providers Care Service Rig Operator Name Role Phone Unavailable Primary Care Provider Unavailabl e Reason for Visit * Reason Onset Date Comments RX APPROVAL 10/28/2023 OZEMPIC 0.25MG Encounter Details Date Type Department Care Team (Latest Contact Info) Description 10/28/2023 Clinical Communication Pharmacy Prior Auth RO [phone] Lizandro Martell RX APPROVAL (OZEMPIC 0.25MG) Social [...] have any follow-up questions, please send an [employer] in Appetite+ message to P [facility] POOL. PRODUCTION WORKER documented in this encounter Plan of Treatment Not on file documented as of this encounter Visit Diagnoses Not on filedocumented in this encounter
--- OUTSIDE RECORDS SUMMARY | 2023-12-31 12:50 | XMS_ITS | Clinical Summary ---
Author Name Unknown Organization [facility] Address [place], [place] [address] Care Team Providers Care Solvent Process Extractor Operator Name Role Phone Gunner Carrasco MD Primary Care Provider [phone] Allergies Active Allergy Reactions Criticality Noted Date [...] Comments Blood Pressure 150/77 10/21/2022 3:19 PM LINTER SAW SHARPENER Pulse 67 10/21/2022 3:19 PM LINTER SAW SHARPENER Temperature - - Respiratory Rate - - Oxygen Saturation 96% 10/21/2022 3:19 PM LINTER SAW SHARPENER Inhaled Oxygen Concentration - - Weight 140.2 [...] age to complete this topic Care Teams Solvent Process Extractor Operator Relationship Specialty Start Date End Date Gunner Carrasco MD [address] [place] [address] PCP - General Family Practice 07/08/22
--- OUTSIDE RECORDS SUMMARY | 2023-12-31 12:50 | XMS_ITS ---
Author Name Unknown Organization [facility] Address [address] [place] [address] Care Team Providers Care Antique Furniture Reproducer Name Role Phone Unavailable Unavailable Unavailable Surgery Details Not on file Complications Check Surgery Details section. Procedure Estimated Blood Loss Check Surgery Details section. Procedure Findings Check Surgery Details section. Procedure Specimens Taken Check Surgery Details section.
--- OUTSIDE RECORDS SUMMARY | 2023-12-31 12:50 | XMS_ITS | Encounter Summary ---
Author Name Unknown Organization [facility] Address [address] [place] [address] Care Team Providers Care Teacher Nursery [employer] Name Role Phone Unavailable Primary Care Provider Unavailabl e Reason for Visit * Reason Comments Med Refill Encounter Details Date Type Department Care Team (Late st Contact Info) Description 05/04/2023 Refill Division of Nephrology and Hypertension in [place], [place] [address] [place] [phone] Vince Chopra Jr., D.O. [address] [place] [address] Med Refill Social History Tobacco Use Types [...]
--- OUTSIDE RECORDS SUMMARY | 2023-12-31 12:50 | XMS_ITS | Referral Summary ---
Author Name Unknown Organization [facility] Address [address] [place] [address] Care Team Providers Care Treasury Director Name Role Phone Unavailable Primary Care Provider Unavailabl e Source Comments Patient records contain information from all sites at [facility]. For routine questions regarding patient records, call [phone] during business hours, M-F 8:00 AM - 5:00 PM Central Time. Record requests for emergency care only can be directed to [phone] at any time.[facility] Encounters Date Type Department Care Team Description 12/24/2023 Refill Division of Nephrology and Hypertension in [place], [place] [address] [place] [address] Vince Chopra Jr., D.O. Med Refill 10/28/2023 Clinical Communication Pharmacy Prior Auth [phone] Lizandro Martell RX APPROVAL (OZEMPIC 0.25MG) from Last 3 Months Allergies Active Allergy [...] Comments Blood Pressure 124/68 09/29/2023 10:36 AM REPAIR MILLER Pulse 88 09/29/2023 10:36 AM REPAIR MILLER Temperature 37 ??C (98.6 ??F) 02/02/2023 3:03 PM CDT Respiratory Rate 18 04/28/2014 10:16 PM CDT Oxygen Saturation 96% 02/02/2023 3:03 PM CDT Inhaled Oxygen Concentration - - Weight 132 kg (290 lb 12.6 oz) 09/29/2023 10:36 AM REPAIR MILLER Height 170 cm (5' 6.93) 09/29/2023 10:36 AM REPAIR MILLER Body Mass Index 45.64 09/29/2023 10:36 AM REPAIR MILLER Plan of Treatment Not on file
--- OUTSIDE RECORDS SUMMARY | 2023-12-31 12:50 | XMS_ITS | Encounter Summary ---
Author Name Unknown Organization [facility] Address [address] [place] [address] Care Team Providers Care Photoengraving Retoucher Name Role Phone Unavailable Primary Care Provider Unavailabl e Reason for Referral * Outpatient (Routine) - Closed Specialty Diagnoses / Procedures Referred By Bhavik t Referred To Contact Diagnoses Shortness Of Breath Procedures DX Chest AP or PA and Lateral 2 Views Dimple Verde APRN, C.N.P., M.S.N. [address] [place] [address] [facility] Region Referral ID Status Reason Start Date Expiration Date Visits Re quested Visits Authorized [id number] Closed 02/02/2023 02/02/2024 1 1 Reason for Visit * Reason Comments Cough X 3 wks Wheezing Encounter Details Date Type Department Care Team ([facility] st Contact Info) Description 02/02/2023 3:00 PM CDT Office Visit Urgent Care, [facility], in [place], [place] [address] [place] [phone] Dimple Verde APRN, C.N.P., M.S.N. [address] [place] [phone] Shortness Of Breath (Primary Dx); Cough Unspecified [...] Body Mass Index 48.73 12/02/2022 3:33 PM WASHER MEAT documented in this encounter Progress Notes * [...] few days. He states he goes to [facility] here in town so his [...] kg since he was last seen at [facility] in November. He is taking Torsemide 20 mg daily. He will monitor this closer and start checking his weights in the mornings which he has not been doing. He has a follow up with his primary care provider at [facility] in a few days. In [...]
--- OUTSIDE RECORDS SUMMARY | 2023-12-31 12:50 | XMS_ITS | Encounter Summary ---
Author Name Unknown Organization [facility] Address [address] [place] [address] Care Team Providers Care Sales Manager Name Role Phone Unavailable Primary Care Provider Unavailabl e Reason for Visit * Reason Onset Date Comments Fluid retention in legs and feet x 1+ week 01/19 Encounter Details Date Type Department Care Team (Latest Contact Info) Description 01/19/2023 Clinical Communication Division of Nephrology and Hypertension in [place], [place] [address] [place] [address] Vince Chopra Jr., D.O. [address] [place] [address] Fluid retention in legs and feet x [...] CST Caller is: patient Preferred Communication Method: [phone] (mobile) Reason for call: Dr. Chopra started [...] please call Rx for water pill to [facility] in [place], [place]. Thanks. ITURE FINISHER HELPER documented in this encounter Plan of Treatment Not on file documented as of this encounter Visit Diagnoses Not on filedocumented in this encounter
--- OUTSIDE RECORDS SUMMARY | 2023-12-31 12:50 | XMS_ITS | Clinical Summary ---
Author Name Unknown Organization [facility] Address [address] [place] [address] Care Team Providers Care Hand Sign Writer Name Role Phone Unavailable Primary Care Provider Unavailabl e Source Comments Patient records contain information from all sites at [facility]. For routine questions regarding patient records, call [phone] during business hours, M-F 8:00 AM - 5:00 PM Central Time. Record requests for emergency care only can be directed to [phone] at any time.[facility] Allergies Active Allergy Reactions Criticality Noted Date [...] Refill Division of Nephrology and Hypertension in [place], [place] [address] [place] [address] iVnce Chopra Jr., D.O. Med Refill 10/28/2023 Clinical Communication Pharmacy Prior Auth RO [phone] Lizandro Martell RX APPROVAL (OZEMPIC 0.25MG) from Last 3 Months Immunizations Name Administration [...] Comments Blood Pressure 124/68 09/29/2023 10:36 AM ROCKET ENGINE MECHANIC Pulse 88 09/29/2023 10:36 AM ROCKET ENGINE MECHANIC Temperature 37 ??C (98.6 ??F) 02/02/2023 3:03 PM CDT Respiratory Rate 18 04/28/2014 10:16 PM CDT Oxygen Saturation 96% 02/02/2023 3:03 PM CDT Inhaled Oxygen Concentration - - Weight 132 kg (290 lb 12.6 oz) 09/29/2023 10:36 AM ROCKET ENGINE MECHANIC Height 170 cm (5' 6.93) 09/29/2023 10:36 AM ROCKET ENGINE MECHANIC Body Mass Index 45.64 09/29/2023 10:36 AM ROCKET ENGINE MECHANIC Plan of Treatment Health Maintenance Due Date [...] (2 of 2 - PCV) 08/08/2015 08/08/2014 Hepatitis B Vaccines (1 of 3 - Risk 3-dose series) 2021 COVID-19 Vaccine (6 - 2022-2 4 season) [...]
--- OUTSIDE RECORDS SUMMARY | 2023-12-31 12:50 | XMS_ITS | Encounter Summary ---
Author Name Unknown Organization [facility] Address [address] [place] [address] Care Team Providers Care Pro Shop Attendant Name Role Phone Unavailable Primary Care Provider Unavailabl e Encounter Details Date Type Department Care Team (Late st Contact Info) Description 01/19/2023 Orders Only Division of Nephrology and Hypertension in [place], [place] [address] [place] [phone] Vince Chopra Jr., D.O. [address] [place] [phone] Social History Tobacco Use Types Packs/Day Years [...]
--- OUTSIDE RECORDS SUMMARY | 2023-12-31 12:50 | XMS_ITS | Encounter Summary ---
Author Name Unknown Organization [facility] Address [address] [place] [address] Care Team Providers Care Room Service Waiter/Waitress Name Role Phone Unavailable Primary Care Provider Unavailabl e Reason for Visit * Reason Onset Date Comments reaction to amlodipine 01/19/2023 Encounter Details Date Type Department Care Team (Latest Contact Info) Description 01/19/2023 Clinical Communication Division of Nephrology and Hypertension in [place], [place] [address] [place] [phone] Vince Chopra Jr., D.O. [address] [place] [phone] reaction to amlodipine Social History Tobacco Use [...] CST Caller is: patient Preferred Communication Method: [phone] (mobile) Reason for call: Patient said that [...] get the swelling down. He utilizes the [facility] pharmacy in [place]. Please call patient. Thanks FIELD LABORER documented in this encounter Plan of Treatment Not on file documented as of this encounter Visit Diagnoses Not on filedocumented in this encounter
--- OUTSIDE RECORDS SUMMARY | 2023-12-31 12:50 | XMS_ITS | Encounter Summary ---
Author Name Unknown Organization [facility] Address [address] [place] [address] Care Team Providers Care English As A Second Language Instructor Name Role Phone Unavailable Primary Care Provider Unavailabl e Encounter Details Date Type Department Care Team (Late st Contact Info) Description 01/19/2023 Clinical Communication Division of Nephrology and Hypertension in [place], [place] [address] [place] [phone] Vince Chopra Jr., D.O. [address] [place] [address] Social History Tobacco Use Types Packs/Day Years [...] Chopra Jr., D.O. - 01/19/2023 1:30 PM MATERIALS BRANCH CHIEF Phone note: He phone today to let [...] let me know how things are going. RIALS BRANCH CHIEF documented in this encounter Plan of Treatment Not on file documented as of this encounter Visit Diagnoses Not on filedocumented in this encounter
--- OUTSIDE RECORDS SUMMARY | 2023-12-31 12:50 | XMS_ITS | Encounter Summary ---
Author Name Unknown Organization [facility] Address [address] [place] [address] Care Team Providers Care Steel Handler Name Role Phone Unavailable Primary Care Provider Unavailabl e Reason for Visit * Appointment Request (Routine) - Closed Specialty Diagnoses / Procedures Referred By Bhavik ledesma Referred To Contact Nephrology and Hypertension Referral ID Status Reason Start Date Expiration Date Visits Re quested Visits Authorized [id number] Closed 09/11/2023 09/10/2024 1 1 Encounter Details Date Type Department Care Team (Latest Contact Info) Description 09/29/2023 10:30 AM PROPERTY ASSESSMENT MONITOR External Outreach Division of Nephrology and Hypertension in [place], [place] [address] [place] [address] Vince Chopra Jr., D.O. [address] [place] [phone] Chronic Kidney Disease (CKD), Stage 3b Glomerular [...] Comments Blood Pressure 124/68 09/29/2023 10:36 AM PROPERTY ASSESSMENT MONITOR Pulse 88 09/29/2023 10:36 AM PROPERTY ASSESSMENT MONITOR Temperature - - Respiratory Rate - - Oxygen Saturation - - Inhaled Oxygen Concentration - - Weight 132 kg (290 lb 12.6 oz) 09/29/2023 10:36 AM PROPERTY ASSESSMENT MONITOR Height 170 cm (5' 6.93) 09/29/2023 10:36 AM PROPERTY ASSESSMENT MONITOR Body Mass Index 45.64 09/29/2023 10:36 AM PROPERTY ASSESSMENT MONITOR documented in this encounter Progress Notes * Vince Chopra Jr., D.O. - 09/29/2023 10:30 AM CST Referring Provider: No primary care provider on file. SUBJECTIVE REASON FOR VISIT [place] out reach CKD Clinic Follow-up regards diabetes [...] Glomerular Filtration Rate (GFR) 30 To 44 ([facility]) His CKD has subtly worsened over time [...] Time: 25 minutes Vince Chopra Jr., D.O. ERTY ASSESSMENT MONITOR documented in this encounter Plan of Treatment [...]
--- OUTSIDE RECORDS SUMMARY | 2023-12-31 12:50 | XMS_ITS | Encounter Summary ---
Author Name Unknown Organization [facility] Address [address] [place] [address] Care Team Providers Care Radio Communications Mechanician Name Role Phone Unavailable Primary Care Provider Unavailabl e Reason for Visit * Appointment Request (Routine) - Closed Specialty Diagnoses / Procedures Referred By Bhavik ledesma Referred To Contact Nephrology and Hypertension Referral ID Status Reason Start Date Expiration Date Visits Re quested Visits Authorized [id number] Closed 07/16/2023 07/15/2024 1 1 Encounter Details Date Type Department Care Team (Latest Contact Info) Description 08/31/2023 3:00 PM CDT External Outreach Division of Nephrology and Hypertension in [place], [place] [address] [place] [address] Vince Chopra Jr., D.O. [address] [place] [phone] Chronic Kidney Disease (CKD), Stage 3b Glomerular [...] provider on file. SUBJECTIVE REASON FOR VISIT [place] out [facility] Follow-up regards hypertension, [...] quite disturbing. #3 Diabetes Mellitus Type 2 ([facility]) Excellent glycemic control I congratulated him. #4 Hyperparathyroidism Renal Secondary (HCC) Calcium phosphorus PTH levels are excellent #5 Body Mass Index 40.0 To 44.9 Adult ([facility]) He is doing quite well [...] Body Mass Index 40.0 To 44.9 Adult ([facility]) documented in this encounter
--- OUTSIDE RECORDS SUMMARY | 2023-12-31 12:50 | XMS_ITS | Encounter Summary ---
Author Name Unknown Organization [facility] Address [address] [place] [address] Care Team Providers Care Resident Inspector Name Role Phone Unavailable Primary Care Provider Unavailabl e Reason for Referral * Medication Prior Authorization - Authorized Specialty Diagnoses / Procedures Referred By Bhavik ledesma Referred To Contact Vince Chopra Jr., D.OGloria [address] [place] [address] Referral ID Status Reason Start Date Expiration Date V isits Requested Visits Authorized [id number] Authorized 11/23/2023 11/22/2024 1 1 Reason for Visit * Appointment Request (Routine) - Closed Specialty Diagnoses / Procedures Referred By Bhavik ledesma Referred To Contact Nephrology and Hypertension Referral ID Status Reason Start Date Expiration Date Visits Re quested Visits Authorized [id number] Closed 05/01/2023 04/30/2024 1 1 Encounter Details Date Type Department Care Team (Latest Contact Info) Description 06/02/2023 3:30 PM CDT External Outreach Division of Nephrology and Hypertension in [place], [place] [address] [place] [address] Vince Chopra Jr., D.O. [address] [place] [phone] Chronic Kidney Disease (CKD), Stage 3b Glomerular Filtration Rate (GFR) 30 To 44 (HCC) (Primary Dx); Hypertensive Chronic Kidney Disease (CKD) Stage 3b Glomerular Filtration Rate (GFR) 30 To 44 (HCC); Diabetes Mellitus Type 2 (HCC); Anemia Of Chronic Renal Failure; Hyperparathyroidism Renal Secondary ([facility]) Social History Tobacco Use Types Packs/Day Years [...] provider on file. SUBJECTIVE REASON FOR VISIT [place] out reach CKD [facility] Follow-up regards medically [...] Extremities: No cyanosis, No clubbing: Massive nonpitting [place] indurated lower extremity swelling Neuro: Cranial Nerves [...]
--- OUTSIDE RECORDS SUMMARY | 2023-12-31 12:50 | XMS_ITS | Encounter Summary ---
Author Name Unknown Organization [facility] Address [address] [place] [address] Care Team Providers Care Digital Marketing Apprentice Name Role Phone Unavailable Primary Care Provider Unavailabl e Reason for Referral * Outpatient (Routine) - Closed Specialty Diagnoses / Procedures Referred By Bhavik ledesma Referred To Contact Diagnoses Shortness Of Breath Procedures DX Chest AP or PA and Lateral 2 Views Dimple Verde APRN, C.N.Tila., M.S.N. [address] [place] [address] [facility] Region Referral ID Status Reason Start Date Expiration Date Visits Re quested Visits Authorized [id number] Closed 02/02/2023 02/02/2024 1 1 Reason for Visit * Outpatient (Routine) - Closed Specialty Diagnoses / Procedures Referred By Bhavik ledesma Referred To Contact Diagnoses Shortness Of Breath Procedures DX Chest AP or PA and Lateral 2 Views Dimple Verde APRN, Francisco Javier.N.P., M.S.N. [address] [place] [phone] [facility] Region Referral ID Status Reason Start Date Expiration Date Visits Re quested Visits Authorized [id number] Closed 02/02/2023 02/02/2024 1 1 Encounter Details Date Type Department Care Team (Latest Contact Info) Description 02/02/2023 3:38 PM CDT - 02/02/2023 11:59 PM CDT Hospital Encounter Department of Radiology, [facility], in [place], [place] [address] [place] [phone] Dimple Verde APRN, C.N.P., M.S.N. [address] [place] [address] Shortness Of Breath Discharge Disposition: Home or [...]
--- OUTSIDE RECORDS SUMMARY | 2023-12-31 12:50 | XMS_ITS | Encounter Summary ---
Author Name Unknown Organization [facility] Address [address] [place] [address] Care Team Providers Care Javascript Engineer Name Role Phone Unavailable Primary Care Provider Unavailabl e Reason for Visit * Reason Comments Med Refill Encounter Details Date Type Department Care Team (Late st Contact Info) Description 12/24/2023 Refill Division of Nephrology and Hypertension in [place], [place] [address] [place] [phone] Vince Chopra Jr., D.O. [address] [place] [address] Med Refill Social History Tobacco Use Types [...]
== END 2023-12-31 12:49 | disposition home or self-care (01) ==
LOC: WOUND 12:48
PROVIDERS: PCP Family Medicine; Visit Provider Nurse Practitioner Family
DX: E11.621 Type 2 diabetes mellitus with foot ulcer (principal); L97.512 Non-pressure chronic ulcer of other part of right foot with fat layer exposed; L97.522 Non-pressure chronic ulcer of other part of left foot with fat layer exposed; Z79.4 Long term (current) use of insulin; Z79.84 Long term (current) use of oral hypoglycemic drugs
CPT/HCPCS: 97597

== ENCOUNTER 2024-01-07 13:12 | Outpatient (CLI) | payer OTHER, SELFPAY ==
--- OUTSIDE RECORDS SUMMARY | 2024-01-07 13:14 | XMS_ITS | Clinical Summary ---
Author Name Unknown Organization [facility] Address [place], [place] [address] Care Team Providers Care Lidder Name Role Phone Gunner Carrasco MD Primary Care Provider [phone] Allergies Active Allergy Reactions Criticality Noted Date [...] Comments Blood Pressure 150/77 10/21/2022 3:19 PM COMMODITIES TRADER Pulse 67 10/21/2022 3:19 PM COMMODITIES TRADER Temperature - - Respiratory Rate - - Oxygen Saturation 96% 10/21/2022 3:19 PM COMMODITIES TRADER Inhaled Oxygen Concentration - - Weight 140.2 [...] age to complete this topic Care Teams Lidder Relationship Specialty Start Date End Date Gunner Carrasco MD [address] [place] [address] PCP - General Family Practice 07/08/22
--- OUTSIDE RECORDS SUMMARY | 2024-01-07 13:15 | XMS_ITS | Encounter Summary ---
Author Name Unknown Organization [facility] Address [address] [place] [address] Care Team Providers Care Production Analyst Name Role Phone Unavailable Primary Care Provider Unavailabl e Reason for Visit * Reason Onset Date Comments RX APPROVAL 10/28/2023 OZEMPIC 0.25MG Encounter Details Date Type Department Care Team (Latest Contact Info) Description 10/28/2023 Clinical Communication Pharmacy Prior Auth RO [phone] Lizandro Martell RX APPROVAL (OZEMPIC 0.25MG) Social [...] have any follow-up questions, please send an [employer] in Broadband Voice message to P [facility] POOL. PROCESSOR documented in this encounter Plan of Treatment Not on file documented as of this encounter Visit Diagnoses Not on filedocumented in this encounter
--- OUTSIDE RECORDS SUMMARY | 2024-01-07 13:15 | XMS_ITS | Encounter Summary ---
Author Name Unknown Organization [facility] Address [address] [place] [address] Care Team Providers Care Mechanical Service Specialist Name Role Phone Unavailable Primary Care Provider Unavailabl e Encounter Details Date Type Department Care Team (Late st Contact Info) Description 01/19/2023 Clinical Communication Division of Nephrology and Hypertension in [place], [place] [address] [place] [phone] Vince Chopra Jr., D.O. [address] [place] [address] Social History Tobacco Use Types Packs/Day Years [...] Chopra Jr., D.O. - 01/19/2023 1:30 PM DIALYSIS REGISTERED NURSE Phone note: He phone today to let [...] let me know how things are going. YSIS REGISTERED NURSE documented in this encounter Plan of Treatment Not on file documented as of this encounter Visit Diagnoses Not on filedocumented in this encounter
--- OUTSIDE RECORDS SUMMARY | 2024-01-07 13:15 | XMS_ITS | Encounter Summary ---
Author Name Unknown Organization [facility] Address [address] [place] [address] Care Team Providers Care Manager Of Applications Development Name Role Phone Unavailable Primary Care Provider Unavailabl e Reason for Visit * Reason Comments Med Refill Encounter Details Date Type Department Care Team (Late st Contact Info) Description 12/24/2023 Refill Division of Nephrology and Hypertension in [place], [place] [address] [place] [phone] Vince Chopra Jr., D.O. [address] [place] [address] Med Refill Social History Tobacco Use Types [...]
--- OUTSIDE RECORDS SUMMARY | 2024-01-07 13:15 | XMS_ITS | Encounter Summary ---
Author Name Unknown Organization [facility] Address [address] [place] [address] Care Team Providers Care Office Support Associate Name Role Phone Unavailable Primary Care Provider Unavailabl e Reason for Visit * Reason Comments Med Refill Encounter Details Date Type Department Care Team (Late st Contact Info) Description 01/05/2024 Refill Division of Nephrology and Hypertension in [place], [place] [address] [place] [phone] Vince Chopra Jr., D.O. [address] [place] [address] Med Refill Social History Tobacco Use Types [...]
--- OUTSIDE RECORDS SUMMARY | 2024-01-07 13:15 | XMS_ITS | Encounter Summary ---
Author Name Unknown Organization [facility] Address [address] [place] [address] Care Team Providers Care Prescriptionist Name Role Phone Unavailable Primary Care Provider Unavailabl e Reason for Referral * Outpatient (Routine) - Closed Specialty Diagnoses / Procedures Referred By Bhavik t Referred To Contact Diagnoses Shortness Of Breath Procedures DX Chest AP or PA and Lateral 2 Views Dimple Verde APRN, C.N.P., M.S.N. [address] [place] [address] [facility] Region Referral ID Status Reason Start Date Expiration Date Visits Re quested Visits Authorized [id number] Closed 02/02/2023 02/02/2024 1 1 Reason for Visit * Reason Comments Cough X 3 wks Wheezing Encounter Details Date Type Department Care Team ([facility] st Contact Info) Description 02/02/2023 3:00 PM CDT Office Visit Urgent Care, [facility], in [place], [place] [address] [place] [phone] Dimple Verde APRN, C.N.P., M.S.N. [address] [place] [phone] Shortness Of Breath (Primary Dx); Cough Unspecified [...] Body Mass Index 48.73 12/02/2022 3:33 PM CYTOLOGY TECHNOLOGIST documented in this encounter Progress Notes * [...] few days. He states he goes to [facility] here in town so his records [...] kg since he was last seen at [facility] in November. He is taking Torsemide 20 mg daily. He will monitor this closer and start checking his weights in the mornings which he has not been doing. He has a follow up with his primary care provider at [facility] in a few days. In the [...]
--- OUTSIDE RECORDS SUMMARY | 2024-01-07 13:15 | XMS_ITS | Encounter Summary ---
Author Name Unknown Organization [facility] Address [address] [place] [address] Care Team Providers Care Recyclable Materials Sorter Name Role Phone Unavailable Primary Care Provider Unavailabl e Reason for Visit * Reason Onset Date Comments Fluid retention in legs and feet x 1+ week 01/19 Encounter Details Date Type Department Care Team (Latest Contact Info) Description 01/19/2023 Clinical Communication Division of Nephrology and Hypertension in [place], [place] [address] [place] [phone] Vince Chopra Jr., D.O. [address] [place] [address] Fluid retention in legs and feet x [...] CST Caller is: patient Preferred Communication Method: [phone] (mobile) Reason for call: Dr. Chopra started [...] please call Rx for water pill to [facility] in [place], [place]. Thanks. ING FLOOR DESK CLERK documented in this encounter Plan of Treatment Not on file documented as of this encounter Visit Diagnoses Not on filedocumented in this encounter
--- OUTSIDE RECORDS SUMMARY | 2024-01-07 13:15 | XMS_ITS | Encounter Summary ---
Author Name Unknown Organization [facility] Address [address] [place] [address] Care Team Providers Care Wood Shop Teacher Name Role Phone Unavailable Primary Care Provider Unavailabl e Reason for Visit * Appointment Request (Routine) - Closed Specialty Diagnoses / Procedures Referred By Bhavik ledesma Referred To Contact Nephrology and Hypertension Referral ID Status Reason Start Date Expiration Date Visits Re quested Visits Authorized [id number] Closed 05/01/2023 04/30/2024 1 1 Encounter Details Date Type Department Care Team (Latest Contact Info) Description 06/02/2023 3:30 PM CDT External Outreach Division of Nephrology and Hypertension in [place], [place] [address] [place] [address] Vince Chopra Jr., D.O. [address] [place] [phone] Chronic Kidney Disease (CKD), Stage 3b Glomerular Filtration Rate (GFR) 30 To 44 (HCC) (Primary Dx); Hypertensive Chronic Kidney Disease (CKD) Stage 3b Glomerular Filtration Rate (GFR) 30 To 44 (HCC); Diabetes Mellitus Type 2 (HCC); Anemia Of Chronic Renal Failure; Hyperparathyroidism Renal Secondary (HCC) Social History Tobacco Use Types Packs/Day [...] encounter Progress Notes * Vince Chopra Jr., D.Jovana. - 06/02/2023 3:30 PM CDT Referring Provider: No primary care provider on file. SUBJECTIVE REASON FOR VISIT [facility] Follow-up regards medically [...] Extremities: No cyanosis, No clubbing: Massive nonpitting [place] indurated lower extremity swelling Neuro: Cranial Nerves [...] To 44 ([facility]) I am satisfied regarding his blood pressure [...] antihypertensive regimen. #3 Diabetes Mellitus Type 2 ([facility]) Reasonable control, but I will add Ozempic 0.25 mg on a weekly basis subcu, I have warned him aboutnausea, and given him my card to contact me. Otherwise we will continue with his insulin, and he will continue with his continuous glucose monitor. #4 Anemia Of Chronic Renal Failure No need for any MIKA regimen iron stores acceptable #5 Hyperparathyroidism Renal Secondary ([facility]) Calcium and phosphorous acceptable. #6 Obstructive sleep [...]
--- OUTSIDE RECORDS SUMMARY | 2024-01-07 13:15 | XMS_ITS ---
Author Name Unknown Organization [facility] Address [address] [place] [address] Care Team Providers Care Manager Clinical Informatics Name Role Phone Unavailable Unavailable Unavailable Surgery Details Not on file Complications Check Surgery Details section. Procedure Estimated Blood Loss Check Surgery Details section. Procedure Findings Check Surgery Details section. Procedure Specimens Taken Check Surgery Details section.
--- OUTSIDE RECORDS SUMMARY | 2024-01-07 13:15 | XMS_ITS | Encounter Summary ---
Author Name Unknown Organization [facility] Address [address] [place] [address] Care Team Providers Care Compensation Advisor Name Role Phone Unavailable Primary Care Provider Unavailabl e Reason for Referral * Outpatient (Routine) - Closed Specialty Diagnoses / Procedures Referred By Bhavik ledesma Referred To Contact Diagnoses Shortness Of Breath Procedures DX Chest AP or PA and Lateral 2 Views Dimple Verde APRN, C.N.Tila., M.S.N. [address] [place] [address] [facility] Region Referral ID Status Reason Start Date Expiration Date Visits Re quested Visits Authorized [id number] Closed 02/02/2023 02/02/2024 1 1 Reason for Visit * Outpatient (Routine) - Closed Specialty Diagnoses / Procedures Referred By Bhavik ledesma Referred To Contact Diagnoses Shortness Of Breath Procedures DX Chest AP or PA and Lateral 2 Views Dimple Verde APRN, Francisco Javier.N.P., M.S.N. [address] [place] [phone] [facility] Region Referral ID Status Reason Start Date Expiration Date Visits Re quested Visits Authorized [id number] Closed 02/02/2023 02/02/2024 1 1 Encounter Details Date Type Department Care Team (Latest Contact Info) Description 02/02/2023 3:38 PM CDT - 02/02/2023 11:59 PM CDT Hospital Encounter Department of Radiology, [facility], in [place], [place] [address] [place] [phone] Dimple Verde APRN, C.N.P., M.S.N. [address] [place] [address] Shortness Of Breath Discharge Disposition: Home or [...]
--- OUTSIDE RECORDS SUMMARY | 2024-01-07 13:15 | XMS_ITS | Referral Summary ---
Author Name Unknown Organization [facility] Address [address] [place] [address] Care Team Providers Care Medicaid Billing Clerk Name Role Phone Unavailable Primary Care Provider Unavailabl e Source Comments Patient records contain information from all sites at [facility]. For routine questions regarding patient records, call [phone] during business hours, M-F 8:00 AM - 5:00 PM Central Time. Record requests for emergency care only can be directed to [phone] at any time.[facility] Encounters Date Type Department Care Team Description 01/05/2024 Refill Division of Nephrology and Hypertension in [place], [place] [address] [place] [address] Vince Chopra Jr., D.O. Med Refill 12/24/2023 Refill Division of Nephrology and Hypertension in [place], [place] [address] [place] [address] Vince Chopra Jr., D.O. Med Refill 10/28/2023 Clinical Communication Pharmacy Prior Auth RO [phone] Lizandro Martell RX APPROVAL (OZEMPIC 0.25MG) from Last 3 Months Allergies Active Allergy Reactions Criticality Noted Date Comments Benazepril Cough 06/22/2017 Latex Rash 07/08/2022 Blisters from compression stockings Medications Medication Sig Dispensed Refills Start Date End Date Status iron,carbonyl-v itamin C (VITRON-C) 65 mg iron- [address] tablet Take 1 tablet (65 mg of iron total) by mouth daily. Do not crush or chew. 60 tablet 1 03/25/2022 Active DULoxetine (CYMBALTA) [address] capsule Take 60 mg by mouth daily. 0 11/01/2022 Active insulin NPH 100 unit/mL injection Inject under the skin. 0 07/08/2022 Active losartan-hydroC HLOROthiazide (HYZAAR) 100-25 mg per tablet Take 1 [...] every 7 (seven) days. 4.5 mL 3 01/04/2024 5 Active torsemide (DEMADEX) 20 mg tablet TAKE 1 TABLET(20 MG) BY MOUTH DAILY 90 tablet 3 01/07/2024 Active semaglutide (Ozempic) 0.25 mg or 0.5 mg (2 mg/3 mL) injection Inject 0.25 mg under the skin every 7 (seven) days. 4.5 mL 3 06/02/2023 4 Discontinued torsemide (DEMADEX) 20 mg tablet Take 0.5 tablets (10 mg total) by mouth as directed. MWF 100 tablet 3 08/31/2023 4 Discontinued Active Problems Problem Noted Date Diagnosed Date [...] Comments Blood Pressure 124/68 09/29/2023 10:36 AM CSR Pulse 88 09/29/2023 10:36 AM CSR Temperature 37 ??C (98.6 ??F) 02/02/2023 3:03 PM CDT Respiratory Rate 18 04/28/2014 10:16 PM CDT Oxygen Saturation 96% 02/02/2023 3:03 PM CDT Inhaled Oxygen Concentration - - Weight 132 kg (290 lb 12.6 oz) 09/29/2023 10:36 AM CSR Height 170 cm (5' 6.93) 09/29/2023 10:36 AM CSR Body Mass Index 45.64 09/29/2023 10:36 AM CSR Plan of Treatment Not on file
--- OUTSIDE RECORDS SUMMARY | 2024-01-07 13:15 | XMS_ITS | Encounter Summary ---
Author Name Unknown Organization [facility] Address [address] [place] [address] Care Team Providers Care Full Roll Inspector Name Role Phone Unavailable Primary Care Provider Unavailabl e Reason for Visit * Appointment Request (Routine) - Closed Specialty Diagnoses / Procedures Referred By Bhavik ledesma Referred To Contact Nephrology and Hypertension Referral ID Status Reason Start Date Expiration Date Visits Re quested Visits Authorized [id number] Closed 09/11/2023 09/10/2024 1 1 Encounter Details Date Type Department Care Team (Latest Contact Info) Description 09/29/2023 10:30 AM SYRUP SHED SUPERVISOR External Outreach Division of Nephrology and Hypertension in [place], [place] [address] [place] [address] Vince Chopra Jr., D.O. [address] [place] [phone] Chronic Kidney Disease (CKD), Stage 3b Glomerular [...] Comments Blood Pressure 124/68 09/29/2023 10:36 AM SYRUP SHED SUPERVISOR Pulse 88 09/29/2023 10:36 AM SYRUP SHED SUPERVISOR Temperature - - Respiratory Rate - - Oxygen Saturation - - Inhaled Oxygen Concentration - - Weight 132 kg (290 lb 12.6 oz) 09/29/2023 10:36 AM SYRUP SHED SUPERVISOR Height 170 cm (5' 6.93) 09/29/2023 10:36 AM SYRUP SHED SUPERVISOR Body Mass Index 45.64 09/29/2023 10:36 AM SYRUP SHED SUPERVISOR documented in this encounter Progress Notes * Vince Chopra Jr., D.O. - 09/29/2023 10:30 AM CST Referring Provider: No primary care provider on file. SUBJECTIVE REASON FOR VISIT [facility] Follow-up regards diabetes [...] Glomerular Filtration Rate (GFR) 30 To 44 ([facility]) His CKD has subtly worsened over [...] Time: 25 minutes Vince Chopra Jr., D.O. P SHED SUPERVISOR documented in this encounter Plan of Treatment [...]
--- OUTSIDE RECORDS SUMMARY | 2024-01-07 13:15 | XMS_ITS | Encounter Summary ---
Author Name Unknown Organization [facility] Address [address] [place] [address] Care Team Providers Care Animal Attendants And Trainers Name Role Phone Unavailable Primary Care Provider Unavailabl e Reason for Visit * Reason Comments Med Refill Encounter Details Date Type Department Care Team (Late st Contact Info) Description 05/04/2023 Refill Division of Nephrology and Hypertension in [place], [place] [address] [place] [phone] Vince Chopra Jr., D.O. [address] [place] [address] Med Refill Social History Tobacco Use Types [...]
--- OUTSIDE RECORDS SUMMARY | 2024-01-07 13:15 | XMS_ITS | Encounter Summary ---
Author Name Unknown Organization [facility] Address [address] [place] [address] Care Team Providers Care Job Change Crew Member Name Role Phone Unavailable Primary Care Provider Unavailabl e Encounter Details Date Type Department Care Team (Late st Contact Info) Description 01/19/2023 Orders Only Division of Nephrology and Hypertension in [place], [place] [address] [place] [place] [phone] Vince Chopra Jr., D.O. [address] [place] [phone] Social History Tobacco Use Types Packs/Day Years [...]
--- OUTSIDE RECORDS SUMMARY | 2024-01-07 13:15 | XMS_ITS | Clinical Summary ---
Author Name Unknown Organization [facility] Address [address] [place] [address] Care Team Providers Care Information Clerk Brokerage Name Role Phone Unavailable Primary Care Provider Unavailabl e Source Comments Patient records contain information from all sites at [facility]. For routine questions regarding patient records, call [phone] during business hours, M-F 8:00 AM - 5:00 PM Central Time. Record requests for emergency care only can be directed to [phone] at any time.[facility] Allergies Active Allergy Reactions Criticality Noted [...] Refill Division of Nephrology and Hypertension in [place], [place] [address] [place] [address] Vince Chopra Jr., D.O. Med Refill 12/24/2023 Refill Division of Nephrology and Hypertension in [place], [place] [address] [place] [address] Vince Chopra Jr., D.O. Med Refill 10/28/2023 Clinical Communication Pharmacy Prior Auth [phone] Lizandro Martell RX APPROVAL (OZEMPIC 0.25MG) from [...] Comments Blood Pressure 124/68 09/29/2023 10:36 AM BUSINESS PERFORMANCE ADVISOR Pulse 88 09/29/2023 10:36 AM BUSINESS PERFORMANCE ADVISOR Temperature 37 ??C (98.6 ??F) 02/02/2023 3:03 PM CDT Respiratory Rate 18 04/28/2014 10:16 PM CDT Oxygen Saturation 96% 02/02/2023 3:03 PM CDT Inhaled Oxygen Concentration - - Weight 132 kg (290 lb 12.6 oz) 09/29/2023 10:36 AM BUSINESS PERFORMANCE ADVISOR Height 170 cm (5' 6.93) 09/29/2023 10:36 AM BUSINESS PERFORMANCE ADVISOR Body Mass Index 45.64 09/29/2023 10:36 AM BUSINESS PERFORMANCE ADVISOR Plan of Treatment Health Maintenance Due Date [...]
--- OUTSIDE RECORDS SUMMARY | 2024-01-07 13:15 | XMS_ITS | Encounter Summary ---
Author Name Unknown Organization [facility] Address [address] [place] [address] Care Team Providers Care Cookie Padder Name Role Phone Unavailable Primary Care Provider Unavailabl e Reason for Visit * Reason Onset Date Comments reaction to amlodipine 01/19/2023 Encounter Details Date Type Department Care Team (Latest Contact Info) Description 01/19/2023 Clinical Communication Division of Nephrology and Hypertension in [place], [place] [address] [place] [phone] Vince Chopra Jr., D.O. [address] [place] [phone] reaction to amlodipine Social History Tobacco Use [...] CST Caller is: patient Preferred Communication Method: [phone] (mobile) Reason for call: Patient said that [...] get the swelling down. He utilizes the [facility] pharmacy in [place]. Please call patient. Thanks UREMENT DIRECTOR documented in this encounter Plan of Treatment Not on file documented as of this encounter Visit Diagnoses Not on filedocumented in this encounter
--- OUTSIDE RECORDS SUMMARY | 2024-01-07 13:15 | XMS_ITS | Encounter Summary ---
Author Name Unknown Organization [facility] Address [address] [place] [address] Care Team Providers Care Pharmacovigilance Specialist Name Role Phone Unavailable Primary Care Provider Unavailabl e Reason for Visit * Appointment Request (Routine) - Closed Specialty Diagnoses / Procedures Referred By Bhavik ledesma Referred To Contact Nephrology and Hypertension Referral ID Status Reason Start Date Expiration Date Visits Re quested Visits Authorized [id number] Closed 07/16/2023 07/15/2024 1 1 Encounter Details Date Type Department Care Team (Latest Contact Info) Description 08/31/2023 3:00 PM CDT External Outreach Division of Nephrology and Hypertension in [place], [place] [address] [place] [address] Vince Chopra Jr., D.O. [address] [place] [phone] Chronic Kidney Disease (CKD), Stage 3b Glomerular [...] provider on file. SUBJECTIVE REASON FOR VISIT [facility] Follow-up regards hypertension, [...] Type 2 ([facility]) Excellent glycemic control I congratulated him. #4 Hyperparathyroidism Renal Secondary (HCC) Calcium phosphorus PTH levels are excellent #5 Body Mass Index 40.0 To 44.9 Adult ([facility]) He is doing quite well from this [...] 44.9 Adult ([facility]) documented in this encounter
== END 2024-01-07 13:13 | disposition home or self-care (01) ==
LOC: WOUND 13:12
PROVIDERS: PCP Family Medicine; Visit Provider Family Medicine
DX: E11.621 Type 2 diabetes mellitus with foot ulcer (principal); L97.512 Non-pressure chronic ulcer of other part of right foot with fat layer exposed; L97.522 Non-pressure chronic ulcer of other part of left foot with fat layer exposed; Z79.4 Long term (current) use of insulin; Z79.84 Long term (current) use of oral hypoglycemic drugs
CPT/HCPCS: 11042

== ENCOUNTER 2024-01-21 13:01 | Outpatient (CLI) | payer OTHER, SELFPAY | END 2024-01-21 13:02 | disposition home or self-care (01) | LOC: WOUND 13:01 | PROVIDERS: PCP Family Medicine; Visit Provider Family Medicine | DX: E11.621 Type 2 diabetes mellitus with foot ulcer (principal); L97.512 Non-pressure chronic ulcer of other part of right foot with fat layer exposed; L97.522 Non-pressure chronic ulcer of other part of left foot with fat layer exposed; I89.0 Lymphedema, not elsewhere classified; Z79.4 Long term (current) use of insulin; Z79.84 Long term (current) use of oral hypoglycemic drugs | CPT/HCPCS: 11042 ==

== ENCOUNTER 2024-01-28 13:16 | Outpatient (CLI) | payer OTHER, SELFPAY | END 2024-01-28 13:17 | disposition home or self-care (01) | LOC: WOUND 13:16 | PROVIDERS: PCP Family Medicine; Visit Provider Nurse Practitioner Family | DX: E11.621 Type 2 diabetes mellitus with foot ulcer (principal); L97.512 Non-pressure chronic ulcer of other part of right foot with fat layer exposed; L97.522 Non-pressure chronic ulcer of other part of left foot with fat layer exposed; I89.0 Lymphedema, not elsewhere classified; Z79.4 Long term (current) use of insulin; Z79.84 Long term (current) use of oral hypoglycemic drugs | CPT/HCPCS: 97597 ==

== ENCOUNTER 2024-02-04 13:06 | Outpatient (CLI) | payer OTHER, SELFPAY | END 2024-02-04 13:07 | disposition home or self-care (01) | LOC: WOUND 13:06 | PROVIDERS: PCP Family Medicine; Visit Provider Nurse Practitioner Family | DX: E11.621 Type 2 diabetes mellitus with foot ulcer (principal); L97.522 Non-pressure chronic ulcer of other part of left foot with fat layer exposed; I89.0 Lymphedema, not elsewhere classified; Z79.4 Long term (current) use of insulin; Z79.84 Long term (current) use of oral hypoglycemic drugs | CPT/HCPCS: 97597 ==

== ENCOUNTER 2024-02-11 12:58 | Outpatient (CLI) | payer OTHER, SELFPAY | END 2024-02-11 12:59 | disposition home or self-care (01) | LOC: WOUND 12:58 | PROVIDERS: PCP Family Medicine; Visit Provider Nurse Practitioner Family | DX: E11.621 Type 2 diabetes mellitus with foot ulcer (principal); L97.522 Non-pressure chronic ulcer of other part of left foot with fat layer exposed; I89.0 Lymphedema, not elsewhere classified; I12.9 Hypertensive chronic kidney disease with stage 1 through stage 4 chronic kidney disease, or unspecified chronic kidney disease; E11.22 Type 2 diabetes mellitus with diabetic chronic kidney disease; N18.32 Chronic kidney disease, stage 3b; Z79.4 Long term (current) use of insulin; Z79.84 Long term (current) use of oral hypoglycemic drugs | CPT/HCPCS: 80061; 80069; 82043; 82570; 82728; 83540; 83550; 84450; 84460; 84550; 86140; 97597 ==

== ENCOUNTER 2024-02-25 12:44 | Outpatient (CLI) | payer OTHER, SELFPAY | END 2024-02-25 12:45 | disposition home or self-care (01) | LOC: WOUND 12:44 | PROVIDERS: PCP Family Medicine; Visit Provider Nurse Practitioner Family | DX: E11.621 Type 2 diabetes mellitus with foot ulcer (principal); Z79.4 Long term (current) use of insulin; Z79.84 Long term (current) use of oral hypoglycemic drugs; L97.528 Non-pressure chronic ulcer of other part of left foot with other specified severity | CPT/HCPCS: 97597 ==

== ENCOUNTER 2024-03-10 13:05 | Outpatient (CLI) | payer OTHER, SELFPAY ==
--- OUTSIDE RECORDS SUMMARY | 2024-03-10 13:07 | XMS_ITS ---
Author Name Unknown Organization [facility] Address [address] [place] [address] Care Team Providers Care Shafting Worker Name Role Phone Unavailable Unavailable Unavailable Surgery Details Not on file Complications Check Surgery Details section. Procedure Estimated Blood Loss Check Surgery Details section. Procedure Findings Check Surgery Details section. Procedure Specimens Taken Check Surgery Details section.
--- OUTSIDE RECORDS SUMMARY | 2024-03-10 13:07 | XMS_ITS | Clinical Summary ---
Author Name Unknown Organization [facility] Address [place], [place] [address] Care Team Providers Care Striker Off Name Role Phone Gunner Carrasco MD Primary Care Provider [phone] Allergies Active Allergy Reactions Criticality Noted Date Comments Benazepril Cough 06/22/2017 Latex Rash 07/08/2022 Blisters from compression stockings Medications Medication Sig Dispensed Refills Start Date End Date Status metFORMIN (GLUCOPHAGE XR) 500 mg Extended-Release tablet Take 1,000 mg by mouth in the morning and 1,000 mg in the evening. 05/03/2022 Active losartan-hydrochlor othiazide (HYZAAR) 100-25 mg tablet Take 1 Tablet by mouth once daily. 05/03/2022 Active atorvastatin (LIPITOR) 20 mg tablet Take 20 mg by mouth once daily. 02/25/2022 Active DULoxetine (CYMBALTA) 60 mg Delayed-release capsule Take 60 mg by mouth once daily. 05/11/2022 Active aspirin 81 mg cap Take 81 mg by mouth once daily. 0 07/08/2022 Active insulin NPH isophane, U-100, (NOVOLIN-N, HUMULIN-N) 100 unit/mL susp injection Inject subcutaneous before breakfast. 0 07/08/2022 Active albuterol HFA (PRO-AIR; VENTOLIN; PROVENTIL) 90 mcg/actuation inhaler 1 Puff every 4 hours if needed. 09/11/2022 Active Social History Tobacco Use Types Packs/Day Years Used Date Smoking Tobacco: Never Assessed Sex and Gender Information Value Date Recorded Sex Assigned at Not on file Gender Identity Not on file Sexual Orientation Not on file Obstetrics History Last Filed Vital Signs Vital Sign Reading Time Taken Comments Blood Pressure 150/77 10/21/2022 3:19 PM CRABBER Pulse 67 10/21/2022 3:19 PM CRABBER Temperature - - Respiratory Rate - - Oxygen Saturation 96% 10/21/2022 3:19 PM CRABBER Inhaled Oxygen Concentration - - Weight 140.2 [...] Additional history exists Influenza for age 50-64 07/24/2024 Pneumococcal series for age 6-64 Aged Out No longer eligible based on patient's age to complete this topic Care Teams Striker Off Relationship Specialty Start Date End Date Gunner Carrasco MD [address] [place] [address] PCP - General Family Practice 07/08/22
--- OUTSIDE RECORDS SUMMARY | 2024-03-10 13:07 | XMS_ITS | Encounter Summary ---
Author Name Unknown Organization [facility] Address [address] [place] [address] Care Team Providers Care Gas Analyst Name Role Phone Unavailable Primary Care Provider Unavailabl e Reason for Visit * Reason Comments Med Refill Encounter Details Date Type Department Care Team (Late st Contact Info) Description 01/05/2024 Refill Division of Nephrology and Hypertension in [place], [place] [address] [place] [phone] Vince Chopra Jr., D.O. [address] [place] [address] Med Refill Social History Tobacco Use Types [...]
--- OUTSIDE RECORDS SUMMARY | 2024-03-10 13:07 | XMS_ITS | Clinical Summary ---
Author Name Unknown Organization [facility] Address [address] [place] [address] Care Team Providers Care Hide Curer Name Role Phone Unavailable Primary Care Provider Unavailabl e Source Comments Patient records contain information from all sites at [facility]. For routine questions regarding patient records, call [phone] during business hours, M-F 8:00 AM - 5:00 PM Central Time. Record requests for emergency care only can be directed to [phone] at any time.[facility] Allergies Active Allergy Reactions Criticality Noted Date [...] capsule Take 60 mg by mouth daily. 11/01/2022 Active insulin NPH 100 unit/mL injection Inject under the skin. 07/08/2022 Active losartan-hydroCHL OROthiazide (HYZAAR) 100-25 mg per tablet Take 1 tablet by mouth daily. 11/01/2022 Active metFORMIN XR (GLUCOPHAGE-XR) 500 mg 24 hr tablet Take 1,000 mg by mouth 2 (two) times a day. 11/01/2022 Active doxycycline hyclate (VIBRA-TABS) 100 mg tablet Take 100 mg by mouth every 12 (twelve) hours. 11/21/2022 Active atorvastatin (LIPITOR) 20 mg tablet Take 20 mg by mouth daily. 01/16/2023 Active aspirin 81 mg capsule Take 81 mg by mouth. 07/08/2022 Active albuterol 90 mcg/actuation inhaler 1 puff every 4 (four) hours as needed. 09/11/2022 Active albuterol 2.5 mg /3 mL nebulizer solution Inhale 3 mL (2.5 mg total) by nebulization 4 (four) times a day. 120 mL 02/02/2023 Active predniSONE (DELTASONE) 20 mg tablet Take 2 tablets (40 mg total) by mouth daily. 10 tablet 02/02/2023 Active carvediloL (COREG) 25 mg tablet TAKE 1 AND 1/2 TABLETS(37.5 MG) BY MOUTH TWICE DAILY WITH MEALS 270 tablet 3 05/10/2023 Active semaglutide (Ozempic) 0.25 mg or 0.5 mg (2 mg/3 mL) injection Inject 0.25 mg under the skin every 7 (seven) days. 4.5 mL 3 01/04/2024 01/03/2025 Active torsemide (DEMADEX) 20 mg tablet TAKE 1 TABLET(20 MG) BY MOUTH DAILY 90 tablet 3 01/07/2024 Active Active Problems Problem Noted Date Diagnosed [...] Encounters Date Type Department Care Team Description 02/15/2024 1:30 PM CDT External Outreach Division of Nephrology and Hypertension in [place], [place] [address] [place] [address] Vince Chopra Jr., D.O. Chronic Kidney Disease (CKD), Stage 3b Glomerular Filtration Rate (GFR) 30 To 44 (HCC) (Primary Dx); Hypertensive Chronic Kidney Disease (CKD) Stage 3b Glomerular Filtration Rate (GFR) 30 To 44 (HCC); Anemia Of Chronic Renal Failure; Diabetes Mellitus Type 2 (HCC); Hyperparathyroidism Renal Secondary (HCC) 01/05/2024 Refill Division of Nephrology and Hypertension in [place], [place] [address] [place] [address] Vince Chopra Jr. D.O. Med Refill 12/24/2023 Refill Division of Nephrology and Hypertension in [place], [place] [address] [place] [address] Vince Chopra Jr. D.O. Med Refill from Last 3 Months Immunizations Name Administration [...] Sign Reading Time Taken Comments Blood Pressure 136/78 02/15/2024 1:57 PM CDT Pulse 71 02/15/2024 1:57 PM CDT Temperature 37 ??C (98.6 ??F) 02/02/2023 3:03 PM CDT Respiratory Rate 18 04/28/2014 10:16 PM CDT Oxygen Saturation 96% 02/02/2023 3:03 PM CDT Inhaled Oxygen Concentration - - Weight 135 kg (297 lb 9.9 oz) 02/15/2024 1:57 PM CDT Height 170 cm (5' 6.93) 09/29/2023 10:36 AM BOILERMAKING SUPERVISOR Body Mass Index 46.71 09/29/2023 10:36 AM BOILERMAKING SUPERVISOR Plan of Treatment Health Maintenance Due Date [...] for Blood Press ure Check / Re-check 02/14/2025 02/15/2024 Zoster Vaccines Completed 12/31/2020, 10/29/2020 Influenza Vaccine Completed 08/18/2023, , 08/13/2021, Additional history exists Procedures Procedure Name Priority Date/Time Associated Diagnosis Comments CREATININE, POCT, B Routine 11/11/2022 9 :14 AM BOILERMAKING SUPERVISOR from Last 3 Months or Most Recently Relevant to Health Maintenance Results * (ABNORMAL) Creatinine, POCT (11/11/2022 9:14 AM BOILERMAKING SUPERVISOR) Creatinine, POCT, B 1.9(H) 0.7 - 1.4 mg/dL 11/11/2022 9:14 AM BOILERMAKING SUPERVISOR NPRG Comment: ----ADDITIONAL INFORMATION---- Performed at the Point of Care Estimated GFR (eGFR), POCT 40(L) >=60 mL/min/BSA 11/11/2022 9:15 AM BOILERMAKING SUPERVISOR NPRG Comment: Estimated GFR calculated using the 2020 CKD_EPI creatinine equation. Blood 11/11/2022 9:14 AM BOILERMAKING SUPERVISOR 11/11/2022 9:15 AM BOILERMAKING SUPERVISOR Generic [facility] POCT ORDERABLES - DEVICE [facility] [address] [place] [address], [facility] NPRG [facility] [address] [place] [address] from Last 3 Months or Most Recently Relevant to Health Maintenance
--- OUTSIDE RECORDS SUMMARY | 2024-03-10 13:07 | XMS_ITS | Encounter Summary ---
Author Name Unknown Organization [facility] Address [address] [place] [address] Care Team Providers Care Card Reader Name Role Phone Unavailable Primary Care Provider Unavailabl e Reason for Visit * Appointment Request (Routine) - Closed Specialty Diagnoses / Procedures Referred By Bhavik ledesma Referred To Contact Nephrology and Hypertension Referral ID Status Reason Start Date Expiration Date Visits Re quested Visits Authorized [id number] Closed 01/07/2024 01/06/2025 1 1 Encounter Details Date Type Department Care Team (Latest Contact Info) Description 02/15/2024 1:30 PM CDT External Outreach Division of Nephrology and Hypertension in [place], [place] [address] [place] [address] Vince Chopra Jr., D.O. [address] [place] [phone] Chronic Kidney Disease (CKD), Stage 3b Glomerular Filtration Rate (GFR) 30 To 44 (HCC) (Primary Dx); Hypertensive Chronic Kidney Disease (CKD) Stage 3b Glomerular Filtration Rate (GFR) 30 To 44 (HCC); Anemia Of Chronic Renal Failure; Diabetes Mellitus Type 2 (HCC); Hyperparathyroidism Renal Secondary (HCC) Social History Tobacco [...] Pulse 71 02/15/2024 1:57 PM CDT Temperature - - Respiratory Rate - - Oxygen Saturation - - Inhaled Oxygen Concentration - - Weight 135 kg (297 lb 9.9 oz) 02/15/2024 1:57 PM CDT Height - - Body Mass Index 46.71 09/29/2023 10:36 AM PIT STEWARD documented in this encounter Progress Notes * Vince Chopra Jr., D.Jovana. - 02/15/2024 1:30 PM CDT Referring Provider: No primary care provider on file. SUBJECTIVE REASON FOR VISIT [place] out [facility] Follow-up regards CKD stage IIIB HISTORY OF PRESENT ILLNESS Mr. Hampton is a 63 y.o. male who presents with history of diabetes mellitus type 2 without microalbuminuria, hypertension, and CKD with a baseline serum creatinine of approximately 2.2-2.5 mg/dL. Since our last visit he is continued to have hypoglycemic events particularly at night. He is cut back on his insulin from 45-40 units at the direction of his Endocrine team. We discussed the dangersof hypoglycemic events. Not had any progression of his neuropathic issues, no vision changes, and he has not noted any urinary foaming. Keeps an excellent log of his blood pressures and blood sugars, and I note that from the blood pressure perspective his systolic pressures have been in the 120s without orthostatic issues. He is using lower extremity pneumatic compression devices which have helped quite a bit with the swelling. He is cut out the salt in his diet, and I note that his toe wounds have nearly totally resolved. Past medical history: 1. Diabetes mellitus type 2 2. Asthma 3. CKD stage IIIB 4. Hypertension 5. Hyperlipidemia 6. Medically complicated overweight Current Outpatient Medications: albuterol 2.5 mg /3 [...] Rfl: 3 torsemide (DEMADEX) 20 mg tablet, TAKE 1 TABLET(20 MG) BY MOUTH DAILY, Disp: 90 tablet, Rfl: 3 REVIEW OF SYSTEMS All other systems reviewed and are negative. OBJECTIVE BP 136/78 Pulse 71 Wt 135 kg BMI 46.71 kg/m?? PHYSICAL EXAMINATION General: Awake alert oriented HEENT: ARNAV, EOMI, Mucous membranes moist, no oral lesions Neck: No Masses, No Bruits Lungs: Clear to ascultation Heart: Regular Rate and Rhythm, No ectopy Murmurs or rubs Abdomen: Soft, Non-tender Extremities: No cyanosis, No clubbing: +1 pitting lower extremity edema, hemosiderin changes in hislower extremities Neuro: Cranial Nerves intact, his gait is antalgic he uses a cane to walk, he has some proximal muscle weakness and difficulties arising out of the exam chair Skin: no suspicious lesions identified Psychiatric: Normal affect DIAGNOSTICS Note microalbumin to creatinine ratio 10 milligrams/gram, hemoglobin A1c 6.1% hemoglobin 12.4, potassium 5.3, creatinine 2.5 mg/dL ASSESSMENT / PLAN #1 Chronic Kidney Disease (CKD), Stage 3b Glomerular Filtration Rate (GFR) 30 To 44 (HCC) This is on the background of ischemic hypertensive nephrosclerosis, perhaps with some endothelial dysfunction. The lack of microalbuminuria speaks against this being diabetic nephropathy. Going forward: 1. Stay well hydrated, his urine needs to be light in color, less dark than lemonade 2. Goal blood pressures less than 130s over 80s which has been achieved 3. Hemoglobin A1c target below 7.5, but above 6.5% 4. No NSAIDs or Gould 2 inhibitors 5. I will see him back in 6 months I have ordered return visits and labs. #2 Hypertensive Chronic Kidney Disease (CKD) Stage 3b Glomerular Filtration Rate (GFR) 30 To 44 (HCC) Excellent blood pressure control I congratulated him. We will make no changes to his regimen. #3 Anemia Of Chronic Renal Failure Hemoglobin is stabilized, we will hold off on an MIKA regimen. #4 Diabetes Mellitus Type 2 (HCC) Cut back on his insulin from 45-40 units #5 Hyperparathyroidism Renal Secondary (HCC) Stable calcium, phosphorus, and PTH Total time: 30 minutes Counseling Time: 20 minutes Vince Chopra Jr., D.O. documented in this encounter Plan of Treatment Not on file documented as of this encounter Visit Diagnoses Diagnosis Chronic Kidney Disease (CKD), Stage 3b Glomerular Filtration Rate (GFR) 30 To 44 (HCC)- Primary Hypertensive Chronic Kidney Disease (CKD) Stage 3b Glomerular Filtration Rate (GFR) 30 To 44 (HCC) Anemia Of Chronic Renal Failure Diabetes Mellitus Type 2 (HCC) Hyperparathyroidism Renal Secondary (HCC) documented in this encounter
--- OUTSIDE RECORDS SUMMARY | 2024-03-10 13:07 | XMS_ITS | Encounter Summary ---
Author Name Unknown Organization [facility] Address [address] [place] [address] Care Team Providers Care Chiropractic Physician Name Role Phone Unavailable Primary Care Provider Unavailabl e Reason for Visit * Reason Comments Med Refill Encounter Details Date Type Department Care Team (Late st Contact Info) Description 12/24/2023 Refill Division of Nephrology and Hypertension in [place], [place] [address] [place] [phone] Vince Chopra Jr., D.O. [address] [place] [address] Med Refill Social History Tobacco Use Types [...]
--- OUTSIDE RECORDS SUMMARY | 2024-03-10 13:07 | XMS_ITS | Referral Summary ---
Author Name Unknown Organization [facility] Address [address] [place] [address] Care Team Providers Care Consulting Software Engineer Name Role Phone Unavailable Primary Care Provider Unavailabl e Source Comments Patient records contain information from all sites at [facility]. For routine questions regarding patient records, call [phone] during business hours, M-F 8:00 AM - 5:00 PM Central Time. Record requests for emergency care only can be directed to [phone] at any time.[facility] Encounters Date Type Department Care Team Description 02/15/2024 1:30 PM CDT External Outreach Division of Nephrology and Hypertension in [place], [place] [address] [place] [address] Vince Chopra Jr., D.O. Chronic Kidney Disease (CKD), Stage 3b Glomerular Filtration Rate (GFR) 30 To 44 (HCC) (Primary Dx); Hypertensive Chronic Kidney Disease (CKD) Stage 3b Glomerular Filtration Rate (GFR) 30 To 44 (HCC); Anemia Of Chronic Renal Failure; Diabetes Mellitus Type 2 (HCC); Hyperparathyroidism Renal Secondary ([facility]) 01/05/2024 Refill Division of Nephrology and Hypertension in [place], [place] [address] [place] [address] Vince Chopra Jr., D.O. Med Refill 12/24/2023 Refill Division of Nephrology and Hypertension in [place], [place] [address] [place] [phone] Vince Chopra Jr. D.O. Med Refill from Last 3 Months Allergies Active Allergy [...] 170 cm (5' 6.93) 09/29/2023 10:36 AM COMMUTER TRAIN OPERATOR Body Mass Index 46.71 09/29/2023 10:36 AM COMMUTER TRAIN OPERATOR Plan of Treatment Not on file Procedures Procedure Name Priority Date/Time Associated Diagnosis Comments CREATININE, POCT, B Routine 11/11/2022 9 :14 AM COMMUTER TRAIN OPERATOR from Last 3 Months or Most Recently Relevant to Health Maintenance Results * (ABNORMAL) Creatinine, POCT (11/11/2022 9:14 AM COMMUTER TRAIN OPERATOR) Creatinine, POCT, B 1.9(H) 0.7 - 1.4 mg/dL 11/11/2022 9:14 AM COMMUTER TRAIN OPERATOR NPRG Comment: ----ADDITIONAL INFORMATION---- Performed at the Point of Care Estimated GFR (eGFR), POCT 40(L) >=60 mL/min/BSA 11/11/2022 9:15 AM COMMUTER TRAIN OPERATOR NPRG Comment: Estimated GFR calculated using the 2020 CKD_EPI creatinine equation. Blood 11/11/2022 9:14 AM COMMUTER TRAIN OPERATOR 11/11/2022 9:15 AM COMMUTER TRAIN OPERATOR Generic [facility]als LAB POCT ORDERABLES - DEVICE [facility] [address] [place] [address], [facility] NPRG [facility] [address] [place] [address] from Last 3 Months or Most Recently Relevant to Health Maintenance
== END 2024-03-10 13:06 | disposition home or self-care (01) ==
LOC: WOUND 13:05
PROVIDERS: PCP Family Medicine; Visit Provider Nurse Practitioner Family
DX: E11.621 Type 2 diabetes mellitus with foot ulcer (principal); L97.528 Non-pressure chronic ulcer of other part of left foot with other specified severity; L97.518 Non-pressure chronic ulcer of other part of right foot with other specified severity; I89.0 Lymphedema, not elsewhere classified; Z79.4 Long term (current) use of insulin; Z79.84 Long term (current) use of oral hypoglycemic drugs
CPT/HCPCS: G0463

== ENCOUNTER 2024-08-01 11:24 | Outpatient (CLI) | payer OTHER, SELFPAY ==
--- OUTSIDE RECORDS SUMMARY | 2024-08-05 18:07 | XMS_ITS | Clinical Summary ---
Author Organization [facility] Address [address] [place] [address] Care Team Providers Care Assembler Cards And Announcements Name Role Phone Unavailable Primary Care Provider Unavailabl e Source Comments Patient records contain information from all sites at [facility]. For routine questions regarding patient records, call [phone] during business hours, M-F 8:00 AM - 5:00 PM Central Time. Record requests for emergency care only can be directed to [phone] at any time.[facility] Allergies Active Allergy Reactions Criticality Noted Date Comments Benazepril Cough 06/22/2017 Latex Rash 07/08/2022 Blisters from compression stockings Medications Medication Sig Dispensed Refills Start Date End Date Status iron,carbonyl-vi tamin C (VITRON-C) 65 mg iron- [address] tablet Take 1 tablet (65 mg of iron total) by mouth daily. Do not crush or chew. 60 tablet 1 03/25/2022 Active DULoxetine (CYMBALTA) [address] capsule Take 60 mg by mouth daily. 11/01/2022 Active insulin NPH 100 unit/mL injection Inject under the skin. 07/08/2022 Active metFORMIN XR (GLUCOPHAGE-XR) 500 mg 24 [...] by mouth daily. 10 tablet 02/02/2023 Active semaglutide (Ozempic) 0.25 mg or 0.5 mg (2 mg/3 mL) injection Inject 0.25 mg under the skin every 7 (seven) days. 4.5 mL 3 01/04/2024 5 Active torsemide (Demadex) 20 mg tablet Take 1 tablet (20 mg total) by mouth daily. 90 tablet 3 08/02/2024 5 Active losartan-hydroCH LOROthiazide (Hyzaar) 100-25 mg per tablet Take 1 tablet by mouth daily. 90 tablet 3 08/02/2024 5 Active carvediloL (Coreg) 25 mg tablet Take 1.5 tablets (37.5 mg total) by mouth 2 (two) times a day with meals. 270 tablet 3 08/02/2024 5 Active losartan-hydroCH LOROthiazide (HYZAAR) 100-25 mg per tablet Take 1 tablet by mouth daily. 11/01/2022 4 Discontinue d(Reorder) torsemide (DEMADEX) 20 mg tablet TAKE 1 TABLET(20 MG) BY MOUTH DAILY 90 tablet 3 01/07/2024 4 Discontinue d(Reorder) carvediloL (Coreg) 25 mg tablet TAKE 1 AND 1/2 TABLETS(37.5 MG) BY MOUTH TWICE DAILY WITH MEALS 270 tablet 3 05/18/2024 4 Discontinue d(Reorder) Active Problems Problem Noted Date Diagnosed Date Anemia Of Chronic Renal Failure 06/02/2023 Hyperparathyroidism Renal Secondary 06/02/2023 Chronic Kidney Disease (CKD) , Stage 3b Glomerular Filtration Rate (GFR) 30 To 44 01/21/2022 Hypertensive Chronic Kidney Disease With Stage 1 Through Stage 4 Chronic Kidney Disease, Or Unspecified Chronic Kidney Disease 01/21/2022 Diabetes Mellitus Type 2 01/21/2022 Body Mass Index 40.0 To 44.9 Adult 06/22/2017 Overview (08/16/2017): Body mass index (BMI) 40.0-44.9, adult\.br\Rule activated problem due to BMI 40- 44 posted on 06/22 at 19:17 CDT. Encounters Date Type Department Care Team Description 08/02/2024 10:30 AM CDT External Outreach Division of Nephrology and Hypertension in [place], [place] [address] [place] [address] Vince Chopra Jr., D.O. Chronic Kidney Disease (CKD), Stage 3b Glomerular Filtration Rate (GFR) 30 To 44 (HCC) (Primary Dx); Hypertensive Chronic Kidney Disease With Stage 1 Through Stage 4 Chronic Kidney Disease, Or Unspecified Chronic Kidney Disease; Diabetes Mellitus Type 2 (HCC); Hyperparathyroidism Renal Secondary (HCC); Anemia Of Chronic Renal Failure 08/02/2024 Orders Only Division of Nephrology and Hypertension in [place], [place] [address] [place] [address] Vince Chopra Jr. D.O. 05/14/2024 Refill Division of Nephrology and Hypertension in [place], [place] [address] [place] [address] Vince Chopra Jr. D.O. Med Refill from [...] Sign Reading Time Taken Comments Blood Pressure 146/90 08/02/2024 10:30 AM CDT Pulse 71 08/02/2024 10:30 AM CDT Temperature 37 ??C (98.6 ??F) 02/02/2023 3:03 PM CDT Respiratory Rate 18 04/28/2014 10:16 PM CDT Oxygen Saturation 96% 02/02/2023 3:03 PM CDT Inhaled Oxygen Concentration - - Weight 136 kg (299 lb 13.2 oz) 08/02/2024 10:30 AM CDT Height 170 cm (5' 6.93) 08/02/2024 10:30 AM CDT Body Mass Index 47.06 08/02/2024 10:30 AM CDT Plan of Treatment Health Maintenance Due Date [...] of 3 - Risk 3-dose series) 2021 Creatinine Level (Kidney Fun ction Test) 11/11/2023 11/11/2022, 12/24/2021 Depression Screening (Annual PHQ-2) 11/23/2023 DTaP,Tdap,and Td Vaccines (2 - Td or Tdap) 04/28/2024 04/28/2014 COVID-19 Vaccine (6 - 2022-2 4 season) 2024 08/10/2022, 02/19/2022, 09/17/2021, Additional history exists Influenza Vaccine (#1) 2024 3, 08/10/2022, 08/13/2021, Additional history exists Office Visit for Blood Press ure Check / Re-check 11/01/2024 08/02/2024 Zoster Vaccines Completed 12/31/2020, 10/29/2020 Procedures Procedure Name Priority Date/Time Associated Diagnosis Comments CREATININE, POCT, B Routine 11/11/2022 9 :14 AM WOOD TOOL MAKER from Last 3 Months or Most Recently Relevant to Health Maintenance Results * (ABNORMAL) Creatinine, POCT (11/11/2022 9:14 AM WOOD TOOL MAKER) Creatinine, POCT, B 1.9(H) 0.7 - 1.4 mg/dL 11/11/2022 9:14 AM WOOD TOOL MAKER NPRG Comment: ----ADDITIONAL INFORMATION---- Performed at the Point of Care Estimated GFR (eGFR), POCT 40(L) >=60 mL/min/BSA 11/11/2022 9:15 AM WOOD TOOL MAKER NPRG Comment: Estimated GFR calculated using the 2020 CKD_EPI creatinine equation. Blood 11/11/2022 9:14 AM WOOD TOOL MAKER 11/11/2022 9:15 AM WOOD TOOL MAKER Generic [facility]als LAB POCT ORDERABLES - DEVICE [facility] [address] [place] [address], [facility] NPRG [facility] [address] [place] [address] from Last 3 Months or Most Recently Relevant to Health Maintenance
--- OUTSIDE RECORDS SUMMARY | 2024-08-05 18:07 | XMS_ITS | Encounter Summary ---
Author Organization [facility] Address [address] [place] [address] Care Team Providers Care Preparing Box Tender Name Role Phone Unavailable Primary Care Provider Unavailabl e Reason for Visit * Appointment Request (Routine) - Closed Specialty Diagnoses / Procedures Referred By Bhavik ledesma Referred To Contact Nephrology and Hypertension Diagnoses dx Procedures NEP EXT OUTREACH [facility] Referral ID Status Reason Start Date Expiration Date Visits Re quested Visits Authorized [id number] Closed 07/01/2024 07/01/2025 1 1 Encounter Details Date Type Department Care Team (Latest Contact Info) Description 08/02/2024 10:30 AM CDT External Outreach Division of Nephrology and Hypertension in [place], [place] [address] [place] [address] Vince Chopra Jr., D.O. [address] [place] [address] Chronic Kidney Disease (CKD), Stage 3b Glomerular Filtration Rate (GFR) 30 To 44 (HCC) (Primary Dx); Hypertensive Chronic Kidney Disease With Stage 1 Through Stage 4 Chronic Kidney Disease, Or Unspecified Chronic Kidney Disease; Diabetes Mellitus Type 2 (HCC); Hyperparathyroidism Renal Secondary (HCC); Anemia Of Chronic Renal Failure Social History Tobacco Use Types Packs/Day Years [...] Pulse 71 08/02/2024 10:30 AM CDT Temperature - - Respiratory Rate - - Oxygen Saturation - - Inhaled Oxygen Concentration - - Weight 136 kg (299 lb 13.2 oz) 08/02/2024 10:30 AM CDT Height 170 cm (5' 6.93) 08/02/2024 10:30 AM CDT Body Mass Index 47.06 08/02/2024 10:30 AM CDT documented in this encounter Progress Notes * Vince Chopra Jr., Josefa.Jovana. - 08/02/2024 10:30 AM CDT Referring Provider: No primary care provider on file. SUBJECTIVE REASON FOR VISIT [place] [facility] Follow-up regards CKD stage IIIB on the background of hypertension, and diabetes mellitus, traditionally without microalbuminuria HISTORY OF PRESENT ILLNESS Mr. Hampton is a 64 y.o. male who presents with CKD with a baseline serum creatinine in the 2 mg/dL range. This summer has been quite eventful, he has had an episode of cellulitis and an upper respiratory infection which was difficult to clear. Just recently completed antibiotics. Additionally needs to increase his dose of his diuretic agents briefly. He has been able to do some traveling, and camping. Blood pressures are kept in a log on a daily basis in his blood pressures are always in the 120s over 70s. He is also watching his sugars quite carefully. He is quite convinced about keeping his sugars low and we often discuss this matter. Discussed once again the goals for hemoglobin A1c to be in the 7% range given his degree of chronic kidney disease. His current hemoglobin A1c is 6.4%. He is using a 70 30 mixture of insulin, at a dose which varies between 20 and 40 units on a daily basis, as well as an NPH insulin which he utilizes at 45 units subQ in the morning in the evening. His glucose diary demonstrates episodes of hypoglycemia on a roughly weekly basis was sugar levels in the 40 range. We discussed this at some length. Fortunately no other constitutional complaints no cardiovascular complaints, he has no other challenges, digestion has been reasonable no urinary outlet challenges. We reviewed his chemistries which show excellent lipid levels, and outstanding stability of his renal function, although at this visit there was a slight increase in his microalbuminuria at 90 milligrams/gram. Past medical history: 1. Diabetes mellitus type 2 2. CKD stage IIIB 3. Asthma 4. Hypertension 5. Hyperlipidemia 6. Medically complicated [...] by mouth daily., Disp: , Rfl: carvediloL (Coreg) 25 mg tablet, TAKE 1 AND 1/2 [...] 90 tablet, Rfl: 3 REVIEW OF SYSTEMS Neurological: Headaches: past medical history:. All other systems reviewed and are negative. OBJECTIVE BP 146/90 Pulse 71 Ht 170 cm Wt 136 kg BMI 47.06 kg/m?? PHYSICAL EXAMINATION General: Awake, alert, oriented. HEENT: ARNAV, EOMI, mucous membranes moist, no oral lesions. Neck: No masses, no bruits. Lungs: Clear to auscultation. Heart: Regular rate and rhythm. No ectopy, murmurs, or rubs. Abdomen: Soft, non-tender. Extremities: No cyanosis, no clubbing, [place] indurated firm nonpitting bilateral lower extremity edema. Neuro: Cranial nerves intact. Gait is normal, strength grossly normal. Skin: No suspicious lesions identified. Psychiatric: Normal affect. DIAGNOSTICS Note creatinine 2.0, hemoglobin A1c 6.4%, hemoglobin 12.5, microalbumin to creatinine ratio 90 milligrams/gram ASSESSMENT / PLAN #1 Chronic Kidney Disease (CKD), Stage 3b Glomerular Filtration Rate (GFR) 30 To 44 (HCC) This is on the background of diabetes hypertensive and ischemic nephrosclerosis. Going forward: 1. Goal blood pressures less than 130s over 80s, which he is generally achieved 2. Goal glycosylated hemoglobin level above 6.5 but below 8% 3. No NSAIDs or Gould 2 inhibitors 4. Stay well hydrated 5. Return to Nephrology Clinic in 6 months. #2 Hypertensive Chronic Kidney Disease With Stage 1 Through Stage 4 Chronic Kidney Disease, Or Unspecified Chronic Kidney Disease His goal blood pressures have been achieved I congratulated him, I refilled his medications which are coming up for refill. Encouraged him to be very careful with his sodium intake. #3 Diabetes Mellitus Type 2 (HCC) His glycemic control is still too tight, his insulin regimen should be cut by 10%, both from the NPH as well as his 70 30 mixture. We will continue to monitor, he has an bead cutter who is also helping him come to needle valve operator with decreasing his very tight historical control. #4 Hyperparathyroidism Renal Secondary (HCC) Satisfactory calcium phosphorus and PTH. #5 Anemia Of Chronic Renal Failure I would advise he continue on his iron supplements but he does not need an MIKA regimen. Total time: 30 minutes Counseling Time: 25 minutes Vince Chopra Jr., D.O. documented in this encounter Plan of Treatment Not on file documented as of this encounter Visit Diagnoses Diagnosis Chronic Kidney Disease (CKD), Stage 3b Glomerular Filtration Rate (GFR) 30 To 44 (HCC)- Primary Hypertensive Chronic Kidney Disease With Stage 1 Through Stage 4 Chronic Kidney Disease, Or Unspecified Chronic Kidney Disease Diabetes Mellitus Type 2 (HCC) Hyperparathyroidism Renal Secondary (HCC) Anemia Of Chronic Renal Failure documented in this encounter
--- OUTSIDE RECORDS SUMMARY | 2024-08-05 18:07 | XMS_ITS | Clinical Summary ---
Author Organization [facility] Address [place], [place] [address] Care Team Providers Care Waiter/Waitress Dining Car Name Role Phone Gunner Carrasco MD Primary Care Provider [phone] Allergies Active Allergy Reactions Criticality Noted Date [...] Comments Blood Pressure 150/77 10/21/2022 3:19 PM AUTO TECHNICIAN Pulse 67 10/21/2022 3:19 PM AUTO TECHNICIAN Temperature - - Respiratory Rate - - Oxygen Saturation 96% 10/21/2022 3:19 PM AUTO TECHNICIAN Inhaled Oxygen Concentration - - Weight 140.2 [...] 2) 2011 COVID-19 vaccine series (2022-24 season) 2024 08/10/2022, 02/19/2022, 09/17/2021, Additional history exists Influenza for age 50-64 07/24/2024 Pneumococcal series for age 6-64 Aged Out No longer eligible based on patient's age to complete this topic Care Teams Waiter/Waitress Dining Car Relationship Specialty Start Date End Date Gunner Carrasco MD [address] [place] [address] PCP - General Family Practice 07/08/22
--- OUTSIDE RECORDS SUMMARY | 2024-08-05 18:07 | XMS_ITS | Referral Summary ---
Author Organization [facility] Address [address] [place] [id number] Care Team Providers Care Night Monitor Name Role Phone Unavailable Primary Care Provider Unavailabl e Source Comments Patient records contain information from all sites at [facility]. For routine questions regarding patient records, call [phone] during business hours, M-F 8:00 AM - 5:00 PM Central Time. Record requests for emergency care only can be directed to [phone] at any time.[facility] Encounters Date Type Department Care Team Description 08/02/2024 Orders Only Division of Nephrology and Hypertension in [place], [place] [address] [place] [address] Vince Chopra Jr., D.OGloria 08/02/2024 10:30 AM CDT External Outreach Division of Nephrology and Hypertension in [place], [place] [address] [place] [address] Vince Chopra Jr., D.O. Chronic Kidney Disease (CKD), Stage 3b Glomerular Filtration Rate (GFR) 30 To 44 (HCC) (Primary Dx); Hypertensive Chronic Kidney Disease With Stage 1 Through Stage 4 Chronic Kidney Disease, Or Unspecified Chronic Kidney Disease; Diabetes Mellitus Type 2 (HCC); Hyperparathyroidism Renal Secondary (HCC); Anemia Of Chronic Renal Failure 05/14/2024 Refill Division of Nephrology and Hypertension in [place], [place] [address] [place] [phone] Vince Chopra Jr. D.O. Med Refill from [...] by mouth daily. 90 tablet 3 08/02/2024 Active losartan-hydroCH LOROthiazide (Hyzaar) 100-25 mg per tablet Take 1 tablet by mouth daily. 90 tablet 3 08/02/2024 Active carvediloL (Coreg) 25 mg tablet Take [...] 08/02/2024 10:30 AM CDT Plan of Treatment Not on file Procedures Procedure Name Priority Date/Time Associated Diagnosis Comments CREATININE, POCT, B Routine 11/11/2022 9 :14 AM BACK JOINER from Last 3 Months or Most Recently Relevant to Health Maintenance Results * (ABNORMAL) Creatinine, POCT (11/11/2022 9:14 AM BACK JOINER) Creatinine, POCT, B 1.9(H) 0.7 - 1.4 mg/dL 11/11/2022 9:14 AM BACK JOINER NPRG Comment: ----ADDITIONAL INFORMATION---- Performed at the Point of Care Estimated GFR (eGFR), POCT 40(L) >=60 mL/min/BSA 11/11/2022 9:15 AM BACK JOINER NPRG Comment: Estimated GFR calculated using the 2020 CKD_EPI creatinine equation. Blood 11/11/2022 9:14 AM BACK JOINER 11/11/2022 9:15 AM BACK JOINER Generic [facility] POCT ORDERABLES - DEVICE [facility] [address] [place] [address], [place] NPRG [facility] [address] [place] [address] from Last 3 Months or Most Recently Relevant to Health Maintenance
--- OUTSIDE RECORDS SUMMARY | 2024-08-05 18:07 | XMS_ITS | Encounter Summary ---
Author Organization [facility] Address [address] [place] [address] Care Team Providers Care Haulage Engine Operator Name Role Phone Unavailable Primary Care Provider Unavailabl e Encounter Details Date Type Department Care Team (Late st Contact Info) Description 08/02/2024 Orders Only Division of Nephrology and Hypertension in [place], [place] [address] [place] [address] Vince Chopra Jr., D.O. [address] [place] [phone] Social History Tobacco Use Types Packs/Day Years [...]
--- OUTSIDE RECORDS SUMMARY | 2024-08-05 18:07 | XMS_ITS ---
Author Organization [facility] Address [address] [place] [address] Care Team Providers Care Welder Journeyman Name Role Phone Unavailable Unavailable Unavailable Surgery Details Not on file Complications Check Surgery Details section. Procedure Estimated Blood Loss Check Surgery Details section. Procedure Findings Check Surgery Details section. Procedure Specimens Taken Check Surgery Details section.
--- OUTSIDE RECORDS SUMMARY | 2024-08-05 18:07 | XMS_ITS | Encounter Summary ---
Author Organization [facility] Address [address] [place] [address] Care Team Providers Care Bias Binding Folder Name Role Phone Unavailable Primary Care Provider Unavailabl e Reason for Visit * Reason Comments Med Refill Encounter Details Date Type Department Care Team (Late st Contact Info) Description 05/14/2024 Refill Division of Nephrology and Hypertension in [place], [place] [address] [place] [phone] Vince Chopra Jr., D.O. [address] [place] [address] Med Refill Social History Tobacco Use Types [...]
== END 2024-08-01 11:25 | disposition home or self-care (01) ==
LOC: NFLDREF 08-05 18:06
PROVIDERS: PCP Family Medicine; Referring Provider Family Medicine; Visit Provider Internal Medicine Nephrology
DX: N18.32 Chronic kidney disease, stage 3b (principal); I10 Essential (primary) hypertension; E11.9 Type 2 diabetes mellitus without complications; L97.522 Non-pressure chronic ulcer of other part of left foot with fat layer exposed
CPT/HCPCS: 80061; 80069; 82043; 82570; 82728; 83540; 83550; 83970; 84450; 84460; 84550; 86140